=== PATIENT | male | born 1970 | race American Indian/Alaskan Native ===

== ENCOUNTER 2016-09-04 15:56 | Emergency (ER) | payer MEDICAID ==
[2016-09-04 16:03] VITALS: BP 113/89
[2016-09-04] MEDS ORDERED: Sodium Chloride 0.9% 10 ML Syringe FLUSH PRN (16:04)
[2016-09-04] MEDS ORDERED: MVI, Adult with Vitamin K 10 ML, Thiamine 100 MG, Folic Acid 1 MG in Lactated Ringers 1... IV ONE ×4 (16:05)
[2016-09-04] MEDS ORDERED: Pantoprazole 40 MG Vial IVPUSH ONE (16:06)
[2016-09-04] MEDS ORDERED: Ondansetron 4 MG/2 ML SDV IV ONE ×2 (16:06→17:19)
[2016-09-04] MEDS ORDERED: Pantoprazole 40 MG in Sodium Chloride 0.9% 100 ML IV SCH (16:15)
[2016-09-04] MEDS ORDERED: levETIRAcetam 1,000 MG in Sodium Chloride 0.9% 100 ML IV ONE (16:24)
[2016-09-04 16:43] LABS: CHLORIDE,CL 109 mmol/L (101-111); SODIUM,NA 144 mmol/L (135-145)
--- NOTE | 2016-09-04 17:48 | EDM.PDOC ---
Scribed by Ivonne Canchola 09/04/16 9100 for Brando Jacob MD ED HPI GENERAL MEDICAL PROBLEM - General Chief Complaint: Drug or Alcohol Abuse Stated Complaint: COMING BY AMBULANCE Time Seen by Provider: 09/04/16 16:00 Source of Information: Reports: Patient, EMS, RN, RN Notes Reviewed History Limitations: Reports: No Limitations - History of Present Illness INITIAL COMMENTS - FREE TEXT/NARRATIVE: Arrives from home by ambulance with complaint of 9 days of heavy continuous drinking of vodka. Last drank late last night or early this morning. He became nauseated late this morning after taking his seizure meds and vomited, then could not quit vomiting. Patient reports that he had at least one seizure today. He called 911 because he began to vomit blood. Complaining of severe sharp and burning epigastric pain. Onset: Today Duration: Constant Location: Reports: Abdomen Quality: Reports: Ache, Burning, Sharp Severity: Severe Improves with: Reports: None Worsens with: Reports: None Associated Symptoms: Reports: No Other Symptoms Upper Abdomen Pain Score (Numeric/FACES): 9 - Related Data Allergies Allergy/AdvReac Type Severity Reaction Status Date / Time Penicillins Allergy Mild Hives Verified 09/04/16 15:59 Home Meds: Home Meds carBAMazepine [Carbamazepine] 200 mg PO BID 07/31/13 [History] ALPRAZolam [Alprazolam] 1 mg PO BID PRN 07/20/15 [History] Zolpidem Tartrate [Ambien] 5 mg PO BEDTIME 07/20/15 [History] Past Medical History - Past Health History Medical/Surgical History: Denies Medical/Surgical History HEENT History: Reports: None Cardiovascular History: Reports: None Respiratory History: Reports: None Gastrointestinal History: Reports: PUD Other Genitourinary History: increased frequency Musculoskeletal History: Reports: None Neurological History: Reports: Seizure Psychiatric History: Reports: Addiction, Anxiety Endocrine/Metabolic History: Reports: None Hematologic History: Reports: None Immunologic History: Reports: None Oncologic (Cancer) History: Reports: None Dermatologic History: Reports: None - Infectious Disease History Infectious Disease History: Reports: None - Past Surgical History Musculoskeletal Surgical History: Reports: Shoulder Surgery Social & Family History - Family History Family Medical History: Noncontributory - Tobacco Use Smoking Status *Q: Unknown Ever Smoked Years of Tobacco use: 20 Packs/Tins Daily: 1 Used Tobacco, but Quit: No Second Hand Smoke Exposure: No - Alcohol Use Days Per Week of Alcohol Use: 7 Number of Drinks Per Day: 10 Total Drinks Per Week: 70 - Recreational Drug Use Recreational Drug Use: No Recreational Drug Use Frequency: Patient Refuses To Answer - Living Situation & Occupation Living situation: Reports: Occupation: Unemployed ED ROS GENERAL - Review of Systems Review Of Systems: ROS reveals no pertinent complaints other than HPI. - Physical Exam Exam: See Below Exam Limited By: No Limitations General Appearance: Alert, Other (Actively vomiting with bloody emesis. ) Eye Exam: Bilateral Eye: Normal Inspection Ears: Normal External Exam, Hearing Grossly Normal, Other (No hemtympanum. ) Nose: Other (dried blood at bilateral nares.) Throat/Mouth: Normal Lips, Normal Voice, No Airway Compromise, Other (dry oral membranes. ) Head Exam: Atraumatic, Normocephalic Neck: Normal Inspection, Supple, Non-Tender, Full Range of Motion Respiratory/Chest: No Respiratory Distress, Lungs Clear, No Accessory Muscle Use , Chest Non-Tender, Other (Left upper chest wall and axillary contusion.) Cardiovascular: Regular Rate, Rhythm, Tachycardia GI/Abdominal: Normal Bowel Sounds, Soft, No Distention, Other (epigastric tenderness.) (Male) Exam: Other (incontinent of urine x1. ) Rectal (Males) Exam: Deferred Neuro Exam (Abbreviated): No Motor/Sensory Deficits, Other (Intoxicated. ) Back Exam: Normal Inspection, Full Range of Motion, NT Extremities: Normal Range of Motion, No Pedal Edema, Normal Capillary Refill, Other (contusion and hematoma right upper extremity. ) Psychiatric: Normal Affect, Normal Mood Skin Exam: Warm, Dry, Other EKG INTERPRETATION EKG Date: 09/04/16 Time: 16:12 Rhythm: Other (sinus tachycardia) Rate (Beats/Min): 102 [place]: Normal P-Wave: Present QRS: Other ([place] IVCD) ST-T: Normal QT: Normal Course - Vital Signs Last Recorded V/S: Last Vital Signs Temp 36.9 C 09/04/16 16:00 Pulse 118 H 09/04/16 16:00 Resp 20 09/04/16 16:00 BP 113/89 09/04/16 16:00 Pulse Ox 95 09/04/16 16:00 - Orders/Labs/Meds Orders: Active Orders 24 hr Category Date Time Status EKG 12 Lead [EKG Documentation Completion] [RC] STAT Care 09/04/16 16:17 Active Peripheral IV Care [RC] . DIRECTED Care 09/04/16 16:04 Active CARBAMAZEPINE [REF] Stat Lab 09/04/16 16:12 Received DRUG SCREEN URINE BIORAD [URCHEM] Stat Lab 09/04/16 16:04 Uncollected UA W/MICROSCOPIC [URIN] Stat Lab 09/04/16 16:04 Uncollected Pantoprazole [ProTONIX IV] 40 mg Med 09/04/16 16:15 Active Sodium Chloride 0.9% [Normal Saline] 100 ml IV .CONTINUOS Sodium Chloride 0.9% [Saline Flush] Med 09/04/16 16:04 Active 10 ml FLUSH ASDIRECTED PRN Peripheral IV Insertion Adult [OM.PC] Stat Oth 09/04/16 16:03 Ordered Medication Orders Pantoprazole Sodium 40 mg/ (Sodium Chloride) 100 mls @ 20 mls/hr IV .CONTINUOS DAYANARA Last Admin: 09/04/16 17:14 Dose: 20 mls/hr Sodium Chloride (Saline Flush) 10 ml FLUSH ASDIRECTED PRN PRN Reason: Keep Vein Open Last Admin: 09/04/16 16:25 Dose: 10 ml Labs: Laboratory Tests 09/04/16 09/04/16 09/04/16 Range/Units 16:12 16:12 16:12 WBC 8.9 (5.0-10.0) 10^3/uL RBC 4.52 L (4.6-6.2) 10^6/uL Hgb 14.6 (14.0-18.0) g/dL Hct 41.7 (40.0-54.0) % MCV 92.3 (80-100) fL MCH 32.3 (27.0-34.0) pg MCHC 35.0 (33.0-35.0) g/dL Plt Count 233 (150-450) 10^3/uL Neut % (Auto) 81.8 H (42.2-75.2) % Lymph % (Auto) 12.7 L (20.5-50.1) % [place] % (Auto) 4.9 (2-8) % Eos % (Auto) 0.3 L (1.0-3.0) % Baso % (Auto) 0.3 (0.0-1.0) % PT 9.7 (9.0-12.0) SEC INR 1.0 (0.9-1.2) APTT 24.9 (22.0-34.0) SEC Sodium 144 (135-145) mmol/L Potassium 3.5 L (3.6-5.0) mmol/L Chloride 109 (101-111) mmol/L Carbon Dioxide 20.0 L (21.0-31.0) mmol/L Anion Gap 18.5 BUN 8 (7-18) mg/dL Creatinine 0.8 (0.6-1.3) mg/dL Est Cr Clr Drug Dosing 117.83 mL/min Estimated GFR (MDRD) > 60 BUN/Creatinine Ratio 10.00 Glucose 101 (74-105) mg/dL Calcium 8.5 (8.4-10.2) mg/dl Total Bilirubin 0.5 (0.2-1.0) mg/dL AST 42 (10-42) IU/L ALT 66 H (10-60) IU/L Alkaline Phosphatase 72 (42-121) IU/L Lactate Dehydrogenase 255 H (91-180) IU/L Creatine Kinase 315 H (26-174) IU/L Total Protein 6.4 L (6.7-8.2) g/dl Albumin 3.9 (3.2-5.5) g/dl Globulin 2.5 Albumin/Globulin Ratio 1.56 Amylase 39 (28-100) U/L Lipase 21 L (22-51) U/L Ethyl Alcohol 145 mg/dL Meds: Medications Generic Name Dose Route Start Last Admin Trade Name Freq PRN Reason Stop Dose Admin Pantoprazole Sodium 40 mg/ 100 mls @ 20 mls/hr 09/04/16 16:15 09/04/16 17:14 Sodium Chloride IV 20 mls/hr .CONTINUOS DAYANARA Administration Sodium Chloride 10 ml 09/04/16 16:04 09/04/16 16:25 Saline Flush FLUSH 10 ml ASDIRECTED PRN Administration Keep Vein Open Discontinued Medications Generic Name Dose Route Start Last Admin Trade Name Freq PRN Reason Stop Dose Admin Multivitamins/Minerals 10 ml/ 1,011.2 mls @ 999 mls/hr 09/04/16 16:05 16:48 Thiamine HCl 100 mg/ Folic IV 09/04/16 17:05 999 mls/hr Acid 1 mg/ Lactated Ringer's .BOLUS ONE Administration Levetiracetam 1,000 mg/ Sodium 110 mls @ 400 mls/hr 09/04/16 16:24 09/04/16 16:49 Chloride IV 09/04/16 16:38 400 mls/hr ONETIME ONE Administration Ondansetron HCl 4 mg 09/04/16 16:06 09/04/16 16:18 Zofran IV 09/04/16 16:07 4 mg ONETIME ONE Administration Ondansetron HCl 4 mg 09/04/16 17:19 09/04/16 17:37 Zofran IV 09/04/16 17:20 4 mg ONETIME ONE Administration Pantoprazole Sodium 80 mg 09/04/16 16:06 09/04/16 16:18 Protonix Iv IVPUSH 09/04/16 16:07 80 mg .BOLUS ONE Administration Departure - Departure Time of Disposition: 17:13 Disposition: DC/Tfer to Acute Hospital 02 Condition: Serious Clinical Impression: Upper GI bleed, Alcohol abuse, Recurrent seizures, Hematoma, History of peptic ulcer disease Acute alcohol intoxication Qualifiers: Complication of substance-induced condition: with unspecified complication Qualified Code(s): F10.929 - Alcohol use, unspecified with intoxication, unspecified Alcoholic gastritis with bleeding Qualifiers: Chronicity: acute Qualified Code(s): K29.21 - Alcoholic gastritis with bleeding - Discharge Information Forms: ED Department Discharge, Interfacility Transfer EMTALA - My Orders Last 24 Hours: My Active Orders 09/04/16 16:03 Peripheral IV Insertion Adult [OM.PC] Stat 09/04/16 16:04 Peripheral IV Care [RC] . DIRECTED DRUG SCREEN URINE BIORAD [URCHEM] Stat UA W/MICROSCOPIC [URIN] Stat Sodium Chloride 0.9% [Saline Flush] 10 ml FLUSH ASDIRECTED PRN 09/04/16 16:12 CARBAMAZEPINE [REF] Stat 09/04/16 16:15 Pantoprazole [ProTONIX IV] 40 mg Sodium Chloride 0.9% [Normal Saline] 100 ml IV .CONTINUOS 09/04/16 16:17 EKG 12 Lead [EKG Documentation Completion] [RC] STAT - Assessment/Plan Last 24 Hours: My Active Orders 09/04/16 16:03 Peripheral IV Insertion Adult [OM.PC] Stat 09/04/16 16:04 Peripheral IV Care [RC] . DIRECTED DRUG SCREEN URINE BIORAD [URCHEM] Stat UA W/MICROSCOPIC [URIN] Stat Sodium Chloride 0.9% [Saline Flush] 10 ml FLUSH ASDIRECTED PRN 09/04/16 16:12 CARBAMAZEPINE [REF] Stat 09/04/16 16:15 Pantoprazole [ProTONIX IV] 40 mg Sodium Chloride 0.9% [Normal Saline] 100 ml IV .CONTINUOS 09/04/16 16:17 EKG 12 Lead [EKG Documentation Completion] [RC] STAT I have read and agree with the documentation that has been completed regarding this visit. By signing this record, I attest that the documentation was completed in my physical presence and is an accurate record of the encounter.
--- NOTE | 2016-09-06 09:35 | EKG ---
09/04/2016- AURELIA SANTANA - A 12-lead EKG shows normal sinus rhythm with sinus tachycardia with heart rate of 102. No significant ST elevation or ST depression noted on this 12-lead EKG except for nonspecific ST-T wave changes on lead 1 and AVR. [facility] /[id number]
== END 2016-09-04 18:00 ==
LOC: DL.ED 15:56
DX: K92.2 Gastrointestinal hemorrhage, unspecified (principal); G40.909 Epilepsy, unspecified, not intractable, without status epilepticus; F10.10 Alcohol abuse, uncomplicated; S40.021A Contusion of right upper arm, initial encounter; X58.XXXA Exposure to other specified factors, initial encounter; Y92.019 Unspecified place in single-family (private) house as the place of occurrence of the external cause; K29.21 Alcoholic gastritis with bleeding; F41.9 Anxiety disorder, unspecified; Z88.0 Allergy status to penicillin; Z79.899 Other long term (current) drug therapy; Z87.11 Personal history of peptic ulcer disease
CPT/HCPCS: 36415; 80053; 80156; 80305; 81001; 82150; 82550; 83615; 83690; 85025; 85610; 85730; 93005; 96361; 96365; 96367; 96374; 96375; 96376; 99285; C9113; G0480; J1953; J2405; J3411; J7050; J7120; J3490

== ENCOUNTER 2016-09-09 15:40 | Emergency (ER) | payer MEDICAID ==
[2016-09-09 15:58] VITALS: BP 123/69
--- NOTE | 2016-09-09 16:16 | EDM.PDOC ---
ED HPI GENERAL MEDICAL PROBLEM - General Chief Complaint: Chest Pain Stated Complaint: RIB PAIN [id number] Time Seen by Provider: 09/09/16 16:13 Source of Information: Reports: Patient History Limitations: Reports: No Limitations - History of Present Illness INITIAL COMMENTS - FREE TEXT/NARRATIVE: 45 yo male presents with left sided lateral chest pain. States that he had a seizure on saturday and fell onto his left side. Was admitted to the hospital and had shoulder x-rays done however no findings were presents per patient. Bruising noted to left upper chest at shoulder. Pt unable to fully raise left arm without pain and has intermittent sharp pains with breathing and speaking. no other complaints. Onset Date: 09/04/16 Duration: Getting Worse Location: Reports: Chest Quality: Reports: Sharp, Stabbing Severity: Moderate Improves with: Reports: Immobilization Worsens with: Reports: Breathing, Movement Associated Symptoms: Reports: No Other Symptoms Left Chest Pain Score (Numeric/FACES): 8 - Related Data Allergies Allergy/AdvReac Type Severity Reaction Status Date / Time Penicillins Allergy Mild Hives Verified 09/09/16 15:53 fluoxetine Allergy Cannot Verified 09/09/16 15:53 Remember Home Meds: Home Meds carBAMazepine [Carbamazepine] 200 mg PO BID 07/31/13 [History] Zolpidem Tartrate [Ambien] 5 mg PO BEDTIME 07/20/15 [History] Past Medical History - Past Health History Medical/Surgical History: Denies Medical/Surgical History HEENT History: Reports: None Cardiovascular History: Reports: None Respiratory History: Reports: None Gastrointestinal History: Reports: GI Bleed, PUD Other Genitourinary History: increased frequency Musculoskeletal History: Reports: None Neurological History: Reports: Seizure Psychiatric History: Reports: Addiction, Anxiety Endocrine/Metabolic History: Reports: None Hematologic History: Reports: None Immunologic History: Reports: None Oncologic (Cancer) History: Reports: None Dermatologic History: Reports: None - Infectious Disease History Infectious Disease History: Reports: None - Past Surgical History Head Surgeries/Procedures: Reports: None Musculoskeletal Surgical History: Reports: Shoulder Surgery Social & Family History - Family History Family Medical History: Noncontributory - Tobacco Use Smoking Status *Q: Former Smoker Years of Tobacco use: 20 Packs/Tins Daily: 1 Used Tobacco, but Quit: Yes Month Tobacco Last Used: july Second Hand Smoke Exposure: No - Caffeine Use Caffeine Use: Reports: Coffee, Energy Drinks, Soda, Tea - Alcohol Use Days Per Week of Alcohol Use: 7 Number of Drinks Per Day: 10 Total Drinks Per Week: 70 - Recreational Drug Use Recreational Drug Use: No Recreational Drug Use Frequency: Patient Refuses To Answer - Living Situation & Occupation Living situation: Reports: Occupation: Unemployed ED ROS GENERAL - Review of Systems Review Of Systems: ROS reveals no pertinent complaints other than HPI. ED EXAM, GENERAL - Physical Exam Exam: See Below Exam Limited By: No Limitations General Appearance: Alert, WD/WN, No Apparent Distress Respiratory/Chest: No Respiratory Distress, Lungs Clear, Normal Breath Sounds, No Accessory Muscle Use, Chest Non-Tender Cardiovascular: Normal Peripheral Pulses, Regular Rate, Rhythm, No Edema, No Gallop, No JVD, No Murmur, No Rub Extremities: Normal Inspection, Non-Tender, No Pedal Edema, Normal Capillary Refill, Limited Range of Motion (L shoulder) Neurological: Alert, Oriented, Normal Cognition, Normal Gait Skin Exam: Warm, Dry, Intact, No Rash, Ecchymosis (left chest ) Course - Vital Signs Last Recorded V/S: Last Vital Signs Temp 97.7 F 09/09/16 15:54 Pulse 97 09/09/16 15:54 Resp 16 09/09/16 15:54 BP 123/69 09/09/16 15:54 Pulse Ox 99 09/09/16 15:54 - Orders/Labs/Meds Orders: Active Orders 24 hr Category Date Time Status Ribs 2V wo Chest Lt [CR] Urgent Exams 09/09/16 Taken Meds: Medications Discontinued Medications Generic Name Dose Route Start Last Admin Trade Name Claudine PRN Reason Stop Dose Admin Hydrocodone Bitart/Acetaminophen 1 tab 09/09/16 17:26 09/09/16 17:30 [place] 325-5 Mg PO 09/09/16 17:27 1 tab ONETIME ONE Administration Cyclobenzaprine HCl 10 mg 09/09/16 16:21 09/09/16 16:38 Flexeril PO 09/09/16 16:22 10 mg ONETIME ONE Administration Departure - Departure Time of Disposition: 17:32 Disposition: Home, Self-Care 01 Condition: Good Clinical Impression: Costochondritis Instructions: Costochondritis, [id number] Forms: ED Department Discharge Additional Instructions: Continue to take deep breath as to not get pneumonia. take meidcation as prescribed. Follow up with your PCP. Return for any worsening symptoms. - My Orders Last 24 Hours: My Active Orders 09/09/16 Ribs 2V wo Chest Lt [CR] Urgent - Assessment/Plan Last 24 Hours: My Active Orders 09/09/16 Ribs 2V wo Chest Lt [CR] Urgent
[2016-09-09] MEDS ORDERED: Cyclobenzaprine 10 MG Tab PO ONE (16:21)
--- NOTE | 2016-09-09 17:09 | CR ---
Clinical history: 45-year-old male with chest pain. Interpretation: Subtle peribronchial "cuffing" suggesting reactive airway disease or bronchitis. Normal cardiac silhouette without alveolar edema or dependent effusion. No lung mass, hilar lymphadenopathy or focal lobar pneumonia. No atelectasis/collapse. No pneumothor ax. 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 CONCLUSION: Bronchitis. Arthritis. No signs of heart failure, lung mass or lobar pneumonia. No acute new cardiopulmonary abnormality si nce 10 June 2014 exam.
[2016-09-09] MEDS ORDERED: Acetaminophen/HYDROcodone 325-5 MG Tab PO ONE ×2 (17:26→17:58)
[2016-09-09] MEDS ORDERED: Acetaminophen/HYDROcodone 325-5 MG Tab ONE (17:58)
== END 2016-09-09 17:40 | disposition home or self-care (01) ==
LOC: DL.ED 15:40
DX: M94.0 Chondrocostal junction syndrome [Tietze] (principal); F41.9 Anxiety disorder, unspecified; Z88.0 Allergy status to penicillin; Z88.8 Allergy status to other drugs, medicaments and biological substances; Z87.891 Personal history of nicotine dependence
CPT/HCPCS: 71020; 71100; 99283; A9270

== ENCOUNTER 2017-05-19 09:57 | Emergency (ER) | payer MEDICAID ==
[2017-05-19] MEDS ORDERED: Sodium Chloride 0.9% 10 ML Syringe FLUSH PRN (10:13)
[2017-05-19] MEDS ORDERED: MVI, Adult with Vitamin K 10 ML, Folic Acid 1 MG, Thiamine 100 MG in Lactated Ringers 1... IV ONE ×4 (10:16)
[2017-05-19] MEDS ORDERED: Ondansetron 4 MG/2 ML SDV IV ONE (10:30)
[2017-05-19] MEDS ORDERED: LORazepam 2 MG/ML Syringe IVPUSH ONE ×2 (10:30→11:33)
[2017-05-19 10:38] LABS: CHLORIDE,CL 105 mmol/L (101-111); SODIUM,NA 140 mmol/L (135-145)
[2017-05-19] MEDS ORDERED: Pantoprazole 40 MG Vial IVPUSH ONE (10:57)
[2017-05-19] MEDS ORDERED: Pantoprazole 40 MG in Sodium Chloride 0.9% 100 ML IV SCH (11:00)
[2017-05-19 11:18] VITALS: BP 134/86
[2017-05-19] MEDS ORDERED: Sodium Chloride 0.9% 1,000 ML IV ONE (12:00)
--- NOTE | 2017-05-19 19:16 | EDM.PDOC ---
Scribed by Ivonne Canchola 05/19/17 1154 for Madison Giron NP ED HPI GENERAL MEDICAL PROBLEM - General Chief Complaint: Gastrointestinal Problem Stated Complaint: STOMACH PAIN, CAN'T KEEP ANYTHING DOWN Time Seen by Provider: 05/19/17 10:18 Source of Information: Reports: Patient, RN, RN Notes Reviewed History Limitations: Reports: No Limitations - History of Present Illness INITIAL COMMENTS - FREE TEXT/NARRATIVE: Patient presents to ER with complaint of nausea, vomiting, and stomach pain unable to keep food or water down. He had been at a wedding in [place]. States he has been drinking for 6 days. Last drink was 11 A.M. yesterday (04-28-17). Not sure if blood in vomit, but color was dark. Unsure if there is blood in stool. He has tremors, auditory and visual hallucinations. He also has nausea, vomiting, diarrhea and chills.There is no chest pain, shortness of breath or fever. Duration: Getting Worse Location: Reports: Abdomen Quality: Reports: Ache Severity: Moderate Improves with: Reports: None Worsens with: Reports: None Associated Symptoms: Reports: No Other Symptoms Upper Abdomen Pain Score (Numeric/FACES): 6 - Related Data Allergies Allergy/AdvReac Type Severity Reaction Status Date / Time Penicillins Allergy Mild Hives Verified 09/09/16 15:53 fluoxetine Allergy Cannot Verified 09/09/16 15:53 Remember Home Meds: Home Meds carBAMazepine [Carbamazepine] 200 mg PO BID 07/31/13 [History] Zolpidem Tartrate [Ambien] 5 mg PO BEDTIME 07/20/15 [History] Past Medical History - Past Health History Medical/Surgical History: Denies Medical/Surgical History HEENT History: Reports: None Cardiovascular History: Reports: None Respiratory History: Reports: None Gastrointestinal History: Reports: Gastritis, GI Bleed, PUD Genitourinary History: Reports: Other (See Below) Other Genitourinary History: increased frequency Musculoskeletal History: Reports: None Neurological History: Reports: Seizure Psychiatric History: Reports: Addiction, Anxiety Endocrine/Metabolic History: Reports: None Hematologic History: Reports: None Immunologic History: Reports: None Oncologic (Cancer) History: Reports: None Dermatologic History: Reports: None - Infectious Disease History Infectious Disease History: Reports: None - Past Surgical History Head Surgeries/Procedures: Reports: None Musculoskeletal Surgical History: Reports: Shoulder Surgery Social & Family History - Family History Family Medical History: Noncontributory - Tobacco Use Smoking Status *Q: Light Tobacco Smoker Years of Tobacco use: 20 Packs/Tins Daily: 0.5 Used Tobacco, but Quit: Yes Month/Year Tobacco Last Used: july Second Hand Smoke Exposure: No - Caffeine Use Caffeine Use: Reports: Coffee, Energy Drinks, Soda, Tea - Alcohol Use Days Per Week of Alcohol Use: 7 Number of Drinks Per Day: 10 Total Drinks Per Week: 70 - Recreational Drug Use Recreational Drug Use: No Recreational Drug Use Frequency: Patient Refuses To Answer - Living Situation & Occupation Living situation: Reports: Occupation: Unemployed ED ROS GENERAL - Review of Systems Review Of Systems: ROS reveals no pertinent complaints other than HPI. ED EXAM, GI/ABD - Physical Exam Exam: See Below Exam Limited By: No Limitations General Appearance: Anxious, Moderate Distress Ears: Normal External Exam, Normal Canal, Hearing Grossly Normal, Normal TMs Nose: Normal Inspection, Normal Mucosa, No Blood Throat/Mouth: Normal Inspection, Normal Lips, Normal Teeth, Normal Gums, Normal Oropharynx, Normal Voice, No Airway Compromise Head: Atraumatic, Normocephalic Neck: Normal Inspection, Supple, Non-Tender, Full Range of Motion Respiratory/Chest: No Respiratory Distress, Lungs Clear, Normal Breath Sounds, No Accessory Muscle Use, Chest Non-Tender Cardiovascular: Normal Peripheral Pulses, Regular Rate, Rhythm, No Edema, No Gallop, No JVD, No Murmur, No Rub GI/Abdominal Exam: Tender (epigastric generalized) (Male) Exam: Deferred Rectal (Males) Exam: Deferred Back Exam: Normal Inspection, Full Range of Motion, NT Extremities: Normal Inspection, Normal Range of Motion, Non-Tender, Normal Capillary Refill, No Pedal Edema Neurological: Alert, Oriented, CN II-XII Intact, Normal Cognition, Normal Gait, Normal Reflexes, No Motor/Sensory Deficits Psychiatric: Anxious, Other (auditory and visual hallucinations.) Skin Exam: Warm, Dry, Intact, Normal Color, No Rash Lymphatic: No Adenopathy Course - Vital Signs Last Recorded V/S: Last Vital Signs Temp 96.8 F 05/19/17 10:01 Pulse 95 05/19/17 11:17 Resp 18 05/19/17 11:17 BP 134/86 05/19/17 11:17 Pulse Ox 98 05/19/17 11:17 - Orders/Labs/Meds Orders: Active Orders 24 hr Category Date Time Status Peripheral IV Care [RC] . DIRECTED Care 05/19/17 10:14 Active Pantoprazole [ProTONIX IV] 40 mg Med 05/19/17 11:00 Active Sodium Chloride 0.9% [Normal Saline] 100 ml IV .CONTINUOS Sodium Chloride 0.9% [Saline Flush] Med 05/19/17 10:13 Active 10 ml FLUSH ASDIRECTED PRN Peripheral IV Insertion Adult [OM.PC] Stat Oth 05/19/17 10:13 Ordered Medication Orders Pantoprazole Sodium 40 mg/ (Sodium Chloride) 100 mls @ 20 mls/hr IV .CONTINUOS DAYANARA Last Admin: 05/19/17 11:13 Dose: 20 mls/hr Sodium Chloride (Saline Flush) 10 ml FLUSH ASDIRECTED PRN PRN Reason: Keep Vein Open Last Admin: 05/19/17 10:16 Dose: 10 ml Labs: Laboratory Tests 05/19/17 05/19/17 05/19/17 Range/Units 10:11 10:11 10:11 WBC 13.5 H (5.0-10.0) 10^3/uL RBC 5.12 (4.6-6.2) 10^6/uL Hgb 16.6 D (14.0-18.0) g/dL Hct 46.2 (40.0-54.0) % MCV 90.2 (80-100) fL MCH 32.4 (27.0-34.0) pg MCHC 35.9 H (33.0-35.0) g/dL Plt Count 285 (150-450) 10^3/uL Neut % (Auto) 78.5 H (42.2-75.2) % Lymph % (Auto) 15.0 L (20.5-50.1) % [place] % (Auto) 6.1 (2-8) % Eos % (Auto) 0.2 L (1.0-3.0) % Baso % (Auto) 0.2 (0.0-1.0) % PT 9.4 (9.0-12.0) SEC INR 0.9 (0.9-1.2) Sodium 140 (135-145) mmol/L Potassium 3.6 (3.6-5.0) mmol/L Chloride 105 (101-111) mmol/L Carbon Dioxide 20.0 L (21.0-31.0) mmol/L Anion Gap 18.6 BUN 15 (7-18) mg/dL Creatinine 0.8 (0.6-1.3) mg/dL Est Cr Clr Drug Dosing 116.61 mL/min Estimated GFR (MDRD) > 60 BUN/Creatinine Ratio 18.75 Glucose 102 (74-105) mg/dL Calcium 8.7 (8.4-10.2) mg/dl Total Bilirubin 0.7 (0.2-1.0) mg/dL AST 32 (10-42) IU/L ALT 48 (10-60) IU/L Alkaline Phosphatase 76 (42-121) IU/L Total Protein 7.0 (6.7-8.2) g/dl Albumin 4.3 (3.2-5.5) g/dl Globulin 2.7 Albumin/Globulin Ratio 1.59 Amylase 34 (28-100) U/L Lipase 12 L (22-51) U/L Urine Color (YELLOW) Urine Appearance (CLEAR) Urine pH (5.0-9.0) Ur Specific [place] (1.005-1.030) Urine Protein (NEGATIVE) Urine Glucose (UA) (NEGATIVE) Urine Ketones (NEGATIVE) Urine Occult Blood (NEGATIVE) Urine Nitrite (NEGATIVE) Urine Bilirubin (NEGATIVE) Urine Urobilinogen (0.2-1.0) mg/dL Ur Leukocyte Esterase (NEGATIVE) Urine RBC /HPF Urine WBC (0-5/HPF) /HPF Ur Epithelial Cells /HPF Urine Bacteria (0-FEW/HPF) /HPF Hyaline Casts /LPF Fine Granular Casts (0/LPF) /LPF Urine Mucus /LPF Urine Opiates Screen (NEGATIVE) Ur Oxycodone Screen (NEGATIVE) Urine Methadone Screen (NEGATIVE) Ur Barbiturates Screen (NEGATIVE) U Tricyclic Antidepress (NEGATIVE) Ur Phencyclidine Scrn (NEGATIVE) Ur Amphetamine Screen (NEGATIVE) U Methamphetamines Scrn (NEGATIVE) Urine MDMA Screen (NEGATIVE) U Benzodiazepines Scrn (NEGATIVE) Urine Cocaine Screen (NEGATIVE) U Marijuana (THC) Screen (NEGATIVE) Ethyl Alcohol 95 mg/dL 03/25/18 03/25/18 Range/Units 10:32 10:32 WBC (5.0-10.0) 10^3/uL RBC (4.6-6.2) 10^6/uL Hgb (14.0-18.0) g/dL Hct (40.0-54.0) % MCV (80-100) fL MCH (27.0-34.0) pg MCHC (33.0-35.0) g/dL Plt Count (150-450) 10^3/uL Neut % (Auto) (42.2-75.2) % Lymph % (Auto) (20.5-50.1) % [place] % (Auto) (2-8) % Eos % (Auto) (1.0-3.0) % Baso % (Auto) (0.0-1.0) % PT (9.0-12.0) SEC INR (0.9-1.2) Sodium (135-145) mmol/L Potassium (3.6-5.0) mmol/L Chloride (101-111) mmol/L Carbon Dioxide (21.0-31.0) mmol/L Anion Gap BUN (7-18) mg/dL Creatinine (0.6-1.3) mg/dL Est Cr Clr Drug Dosing mL/min Estimated GFR (MDRD) BUN/Creatinine Ratio Glucose (74-105) mg/dL Calcium (8.4-10.2) mg/dl Total Bilirubin (0.2-1.0) mg/dL AST (10-42) IU/L ALT (10-60) IU/L Alkaline Phosphatase (42-121) IU/L Total Protein (6.7-8.2) g/dl Albumin (3.2-5.5) g/dl Globulin Albumin/Globulin Ratio Amylase (28-100) U/L Lipase (22-51) U/L Urine Color Yellow (YELLOW) Urine Appearance Slightly cloudy (CLEAR) Urine pH 6.0 (5.0-9.0) Ur Specific [place] >= 1.030 (1.005-1.030) Urine Protein 100 H (NEGATIVE) Urine Glucose (UA) Negative (NEGATIVE) Urine Ketones 40 H (NEGATIVE) Urine Occult Blood Trace-intact H (NEGATIVE) Urine Nitrite Negative (NEGATIVE) Urine Bilirubin Small H (NEGATIVE) Urine Urobilinogen 0.2 (0.2-1.0) mg/dL Ur Leukocyte Esterase Negative (NEGATIVE) Urine RBC 0-5 /HPF Urine WBC 0-5 (0-5/HPF) /HPF Ur Epithelial Cells Few /HPF Urine Bacteria Moderate H (0-FEW/HPF) /HPF Hyaline Casts Few H /LPF Fine Granular Casts Many H (0/LPF) /LPF Urine Mucus Many H /LPF Urine Opiates Screen Negative (NEGATIVE) Ur Oxycodone Screen Negative (NEGATIVE) Urine Methadone Screen Negative (NEGATIVE) Ur Barbiturates Screen Negative (NEGATIVE) U Tricyclic Antidepress Negative (NEGATIVE) Ur Phencyclidine Scrn Negative (NEGATIVE) Ur Amphetamine Screen Negative (NEGATIVE) U Methamphetamines Scrn Positive H (NEGATIVE) Urine MDMA Screen Negative (NEGATIVE) U Benzodiazepines Scrn Positive H (NEGATIVE) Urine Cocaine Screen Negative (NEGATIVE) U Marijuana (THC) Screen Negative (NEGATIVE) Ethyl Alcohol mg/dL Meds: Medications Generic Name Dose Route Start Last Admin Trade Name Freq PRN Reason Stop Dose Admin Pantoprazole Sodium 40 mg/ 100 mls @ 20 mls/hr 05/19/17 11:00 05/19/17 11:13 Sodium Chloride IV 20 mls/hr .CONTINUOS DAYANARA Administration Sodium Chloride 10 ml 05/19/17 10:13 05/19/17 10:16 Saline Flush FLUSH 10 ml ASDIRECTED PRN Administration Keep Vein Open Discontinued Medications Generic Name Dose Route Start Last Admin Trade Name Freq PRN Reason Stop Dose Admin Multivitamins/Minerals 10 ml/ 1,011.2 mls @ 999 mls/hr 05/19/17 10:16 10:28 Folic Acid 1 mg/ Thiamine HCl IV 05/19/17 11:16 999 mls/hr 100 mg/ Lactated Ringer's ONETIME ONE Administration Lorazepam 1 mg 05/19/17 10:30 05/19/17 10:36 Ativan IVPUSH 05/19/17 10:31 1 mg ONETIME ONE Administration Lorazepam 2 mg 05/19/17 11:33 05/19/17 11:45 Ativan IVPUSH 05/19/17 11:34 2 mg ONETIME ONE Administration Ondansetron HCl 4 mg 05/19/17 10:30 05/19/17 10:36 Zofran IV 05/19/17 10:31 4 mg ONETIME ONE Administration Pantoprazole Sodium 80 mg 05/19/17 10:57 05/19/17 11:12 Protonix Iv IVPUSH 05/19/17 10:58 80 mg .BOLUS ONE Administration Departure - Departure Time of Disposition: 11:52 Disposition: DC/Tfer to Acute Hospital 02 Condition: Fair Clinical Impression: Alcohol withdrawal syndrome, Alcohol withdrawal delirium, Auditory hallucinations, Visual hallucinations Gastritis Qualifiers: Gastritis type: alcoholic Chronicity: acute Gastritis bleeding: presence of bleeding unspecified Qualified Code(s): K29.20 - Alcoholic gastritis without bleeding - Discharge Information Forms: ED Department Discharge, Interfacility Transfer EMTALA - My Orders Last 24 Hours: My Active Orders 05/19/17 10:13 Sodium Chloride 0.9% [Saline Flush] 10 ml FLUSH ASDIRECTED PRN Peripheral IV Insertion Adult [OM.PC] Stat 05/19/17 10:14 Peripheral IV Care [RC] . DIRECTED 05/19/17 11:00 Pantoprazole [ProTONIX IV] 40 mg Sodium Chloride 0.9% [Normal Saline] 100 ml IV .CONTINUOS - Assessment/Plan Last 24 Hours: My Active Orders 05/19/17 10:13 Sodium Chloride 0.9% [Saline Flush] 10 ml FLUSH ASDIRECTED PRN Peripheral IV Insertion Adult [OM.PC] Stat 05/19/17 10:14 Peripheral IV Care [RC] . DIRECTED 05/19/17 11:00 Pantoprazole [ProTONIX IV] 40 mg Sodium Chloride 0.9% [Normal Saline] 100 ml IV .CONTINUOS I have read and agree with the documentation that has been completed regarding this visit. By signing this record, I attest that the documentation was completed in my physical presence and is an accurate record of the encounter.
== END 2017-05-19 12:06 ==
LOC: DL.ED 09:57
DX: K29.20 Alcoholic gastritis without bleeding (principal); F10.231 Alcohol dependence with withdrawal delirium; R44.0 Auditory hallucinations; R44.1 Visual hallucinations; F17.210 Nicotine dependence, cigarettes, uncomplicated; Z88.0 Allergy status to penicillin; Z88.8 Allergy status to other drugs, medicaments and biological substances; Y90.4 Blood alcohol level of 80-99 mg/100 ml
CPT/HCPCS: 36415; 80053; 80305; 81001; 82150; 82272; 83690; 85025; 85610; 96365; 96366; 96368; 96375; 96376; 99285; C9113; G0480; J2060; J2405; J3411; J3490; J7050; J7120

== ENCOUNTER 2017-06-10 20:25 | Emergency (ER) | payer MEDICAID, OTHER ==
[2017-06-10 20:43] VITALS: BP 117/81
[2017-06-10] MEDS ORDERED: Acetaminophen/HYDROcodone 325-10 MG Tab PO ONE (20:56)
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
== END 2017-06-10 22:21 | disposition home or self-care (01) ==
LOC: DL.ED 20:25
DX: S20.212A Contusion of left front wall of thorax, initial encounter (principal); F17.210 Nicotine dependence, cigarettes, uncomplicated; Z88.0 Allergy status to penicillin; Z88.8 Allergy status to other drugs, medicaments and biological substances; Z79.899 Other long term (current) drug therapy; W01.0XXA Fall on same level from slipping, tripping and stumbling without subsequent striking against object, initial encounter
CPT/HCPCS: 71101; 99283; A9270

== ENCOUNTER 2017-07-13 15:47 | Emergency (ER) | payer MEDICAID ==
[2017-07-13 16:16] VITALS: BP 145/99
[2017-07-13] MEDS ORDERED: Ketorolac 30 MG/ML SDV IVPUSH ONE (18:22)
[2017-07-13] MEDS ORDERED: Ondansetron 4 MG Tab.DIS PO ONE (18:22)
[2017-07-13] MEDS ORDERED: Acetaminophen/oxyCODONE 325-5 MG Tab ONE (18:26)
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
== END 2017-07-13 18:48 | disposition home or self-care (01) ==
LOC: DL.ED 15:47
DX: S02.641A Fracture of ramus of right mandible, initial encounter for closed fracture (principal); F17.210 Nicotine dependence, cigarettes, uncomplicated; Z88.0 Allergy status to penicillin; Z88.8 Allergy status to other drugs, medicaments and biological substances; Z79.899 Other long term (current) drug therapy; Y04.0XXA Assault by unarmed brawl or fight, initial encounter
CPT/HCPCS: 70450; 70486; 72125; 96372; 99284; A9270; J1885

== ENCOUNTER 2017-10-16 10:10 | Emergency (ER) | payer MEDICAID, OTHER ==
--- NOTE | 2017-10-16 11:01 | EDM.PDOC ---
ED HPI GENERAL MEDICAL PROBLEM - General Chief Complaint: ENT Problem Stated Complaint: STICHES INFECTED ? Time Seen by Provider: 10/16/17 10:45 Source of Information: Reports: Patient History Limitations: Reports: No Limitations - History of Present Illness INITIAL COMMENTS - FREE TEXT/NARRATIVE: This 46 yo male patient reports to the ED with right sided jaw and neck pain with swelling. The patient reports that he had a plate removed about [address] Negrete in [place]. The patient reports he has noticed increased swelling and pain over the past 24 hours. The patient's reports that she called Dr. Negrete's office yesterday. The patient had a CT scan prior to coming to the ED. The patient has an appointment with Dr. Negrete tomorrow in [place]. The patient reports his pain is currently at a 6/10. The patient reports that he had Toradol while in [place] which caused him to vomit. Duration: Day(s):, Constant, Getting Worse Location: Reports: Face (right lower jaw), Neck (right side of neck) Quality: Reports: Ache, Pressure, Sharp Severity: Moderate Improves with: Reports: Rest Worsens with: Reports: Movement Associated Symptoms: Reports: No Other Symptoms Right Neck Pain Score (Numeric/FACES): 6 - Related Data Allergies Allergy/AdvReac Type Severity Reaction Status Date / Time Penicillins Allergy Hives Verified 10/16/17 10:31 Home Meds: Home Meds Acetaminophen [Tylenol Extra Strength] 500 mg PO ASDIRECTED PRN 10/16/17 [ History] Ibuprofen 600 mg PO ASDIRECTED 10/16/17 [History] Multivitamin [Multi-Day Vitamins] 1 tab PO DAILY 10/16/17 [History] carBAMazepine [Carbamazepine] 200 mg PO BID 10/16/17 [History] diphenhydrAMINE HCl [Benadryl] 25 mg PO BEDTIME 10/16/17 [History] Past Medical History HEENT History: Reports: None, Hard of Hearing, Impaired Vision Other HEENT History: deaf out of the left ear, Cardiovascular History: Reports: None Respiratory History: Reports: None Gastrointestinal History: Reports: GERD Genitourinary History: Reports: None Neurological History: Reports: Seizure Endocrine/Metabolic History: Reports: None Hematologic History: Reports: None Immunologic History: Reports: None Oncologic (Cancer) History: Reports: None Dermatologic History: Reports: None - Past Surgical History Head Surgeries/Procedures: Reports: None HEENT Surgical History: Reports: Oral Surgery Musculoskeletal Surgical History: Reports: Arthroscopic Knee, Shoulder Surgery Social & Family History - Tobacco Use Smoking Status *Q: Current Every Day Smoker Years of Tobacco use: 24 Packs/Tins Daily: 0.5 Second Hand Smoke Exposure: No - Caffeine Use Caffeine Use: Reports: Coffee - Recreational Drug Use Recreational Drug Use: No ED ROS ENT - Review of Systems Review Of Systems: ROS reveals no pertinent complaints other than HPI. ED EXAM, ENT - Physical Exam Exam: See Below Exam Limited By: No Limitations General Appearance: Alert, WD/WN, Moderate Distress Eye Exam: Bilateral Eye: EOMI, Normal Inspection, PERRL Ears: Normal External Exam Nose: Normal Inspection, Normal Mucousa, No Blood Mouth/Throat: Normal Inspection, Normal Gums, Normal Lips, Normal Oropharynx, Normal Teeth Head: Atraumatic, Other (right sided facial swelling) Neck: Tender Lateral (right side), Other (swelling and erythema to the right side of his neck. Suture line has areas of white purulent drainage. ) Cardiovascular: Normal Peripheral Pulses, Regular Rate, Rhythm, No Edema, No Gallop, No JVD, No Murmur, No Rub GI/Abdominal: Normal Bowel Sounds, Soft, Non-Tender, No Organomegaly, No Distention, No Abnormal Bruit, No Mass (Male) Exam: Deferred Rectal (Males) Exam: Deferred Back: Normal Inspection, Full Range of Motion Extremities: Normal Inspection, Normal Range of Motion, Non-Tender, No Pedal Edema, Normal Capillary Refill Neurological: Alert, Oriented, CN II-XII Intact, Normal Cognition, Normal Gait, Normal Reflexes, No Motor/Sensory Deficits Psychiatric: Normal Affect, Normal Mood Skin: Erythema (right side of neck), Wound/Incision (right lateral neck) Course - Vital Signs Last Recorded V/S: Last Vital Signs Temp 37.2 C 10/16/17 10:21 Pulse 108 H 10/16/17 10:21 Resp 16 10/16/17 10:21 BP 130/81 10/16/17 10:21 Pulse Ox 98 10/16/17 10:21 - Orders/Labs/Meds Orders: Active Orders 24 hr Category Date Time Status CULTURE BLOOD [BC] Stat Lab 10/16/17 10:55 Results CULTURE BLOOD [BC] Stat Lab 10/16/17 10:58 Received Clindamycin Phosphate [Cleocin] 300 mg Med 10/16/17 11:53 Ordered Sodium Chloride 0.9% [Normal Saline] 50 ml IV ONETIME Blood Culture x2 Reflex Set [OM.PC] Stat Oth 10/16/17 10:49 Ordered Medication Orders Clindamycin Phosphate 300 mg/ (Sodium Chloride) 52 mls @ 50 mls/hr IV ONETIME ONE Stop: 10/16/17 12:55 Labs: Laboratory Tests 10/16/17 10/16/17 10/16/17 Range/Units 10:58 10:58 10:58 WBC 18.1 H (5.0-10.0) 10^3/uL RBC 4.45 L (4.6-6.2) 10^6/uL Hgb 13.7 L (14.0-18.0) g/dL Hct 40.9 (40.0-54.0) % MCV 91.9 (80-100) fL MCH 30.8 (27.0-34.0) pg MCHC 33.5 (33.0-35.0) g/dL Plt Count 325 (150-450) 10^3/uL Neut % (Auto) 82.2 H (42.2-75.2) % Lymph % (Auto) 8.3 L (20.5-50.1) % [place] % (Auto) 8.6 H (2-8) % Eos % (Auto) 0.7 L (1.0-3.0) % Baso % (Auto) 0.2 (0.0-1.0) % Sodium 138 (135-145) mmol/L Potassium 4.0 (3.6-5.0) mmol/L Chloride 103 (101-111) mmol/L Carbon Dioxide 27.0 (21.0-31.0) mmol/L Anion Gap 12.0 BUN 14 (7-18) mg/dL Creatinine 0.7 (0.6-1.3) mg/dL Est Cr Clr Drug Dosing 133.26 mL/min Estimated GFR (MDRD) > 60 BUN/Creatinine Ratio 20.00 Glucose 91 (74-105) mg/dL Lactic Acid 0.9 (0.5-2.2) mmol/L Calcium 8.7 (8.4-10.2) mg/dl Total Bilirubin 0.4 (0.2-1.0) mg/dL AST 21 (10-42) IU/L ALT 21 (10-60) IU/L Alkaline Phosphatase 83 (42-121) IU/L Total Protein 7.0 (6.7-8.2) g/dl Albumin 3.5 (3.2-5.5) g/dl Globulin 3.5 Albumin/Globulin Ratio 1.00 Meds: Medications Generic Name Dose Route Start Last Admin Trade Name Freq PRN Reason Stop Dose Admin Clindamycin Phosphate 300 mg/ 52 mls @ 50 mls/hr 10/16/17 11:53 Sodium Chloride IV 10/16/17 12:55 ONETIME ONE Discontinued Medications Generic Name Dose Route Start Last Admin Trade Name Freq PRN Reason Stop Dose Admin Hydromorphone HCl 0.5 mg 10/16/17 11:57 Dilaudid IVPUSH 10/16/17 11:58 ONETIME ONE Departure - Departure Time of Disposition: 12:00 Disposition: DC/Tfer to Acute Hospital 02 Condition: Poor Clinical Impression: Postoperative abscess Qualifiers: Encounter type: initial encounter Qualified Code(s): T81.4XXA - Infection following a procedure, initial encounter - Discharge Information *PRESCRIPTION DRUG MONITORING PROGRAM REVIEWED*: Not Applicable *COPY OF PRESCRIPTION DRUG MONITORING REPORT IN PATIENT DIPTI: Not Applicable Forms: Interfacility Transfer EMTALA Care Plan Goals: Discussed the examination, history, CT results and lab results with [facility] (in direct contact with Dr. Negrete). Dr. Negrete accepted the patient for continued evaluation and treatment. The patient was given IV Clindamycin and IV Dilaudid while in the ED. The patient will be transported by [facility]. - My Orders Last 24 Hours: My Active Orders 10/16/17 10:49 Blood Culture x2 Reflex Set [OM.PC] Stat 10/16/17 10:55 CULTURE BLOOD [BC] Stat 10/16/17 10:58 CULTURE BLOOD [BC] Stat 10/16/17 11:53 Clindamycin Phosphate [Cleocin] 300 mg Sodium Chloride 0.9% [Normal Saline] 50 ml IV ONETIME - Assessment/Plan Last 24 Hours: My Active Orders 10/16/17 10:49 Blood Culture x2 Reflex Set [OM.PC] Stat 10/16/17 10:55 CULTURE BLOOD [BC] Stat 10/16/17 10:58 CULTURE BLOOD [] Stat 10/16/17 11:53 Clindamycin Phosphate [Cleocin] 300 mg Sodium Chloride 0.9% [Normal Saline] 50 ml IV ONETIME
[2017-10-16 11:31] LABS: CHLORIDE,CL 103 mmol/L (101-111); SODIUM,NA 138 mmol/L (135-145)
[2017-10-16] MEDS ORDERED: HYDROmorphone 0.5 MG/0.5 ML Syringe IVPUSH ONE (11:57)
[2017-10-16 13:02] VITALS: BP 143/86
== END 2017-10-16 12:46 ==
LOC: EDUNIT# 10:10 → DL.ED 10:10
DX: T81.4XXA Infection following a procedure, initial encounter (principal); L02.818 Cutaneous abscess of other sites; F17.210 Nicotine dependence, cigarettes, uncomplicated; Z88.0 Allergy status to penicillin
CPT/HCPCS: 36415; 80053; 83605; 85025; 87040; 96365; 96375; 99284; J1170; J3490; J7050

== ENCOUNTER 2017-10-25 09:03 | Inpatient (IN) | payer MEDICAID ==
[2017-10-25] MEDS ORDERED: Pantoprazole 40 MG Tab.CR PO PRN (14:03)
[2017-10-25] MEDS ORDERED: Docusate Sodium 100 MG Cap PO PRN (14:04)
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
[2017-10-25] MEDS: Sodium Chloride 0.9% 10 ML Syringe FLUSH PRN (14:44)
[2017-10-25] MEDS: Piperacillin/Tazobactam 3.375 GM in Sodium Chloride 0.9% 100 ML IV SCH ×2 (14:45→22:02)
[2017-10-25] MEDS: Acetaminophen/oxyCODONE 325-5 MG Tab PO PRN ×2 (14:58→21:24)
[2017-10-25] MEDS: diphenhydrAMINE 25 MG Tab PO SCH (21:16)
[2017-10-25] MEDS: carBAMazepine 200 MG Tab PO SCH (21:16)
[2017-10-25] MEDS: Heparin Sodium 5,000 Units/ML Vial SUBCUT SCH (22:02)
[2017-10-25] MEDS: ALPRAZolam 0.25 MG Tab PO PRN (22:41)
[2017-10-26] MEDS: Piperacillin/Tazobactam 3.375 GM in Sodium Chloride 0.9% 100 ML IV SCH ×3 (05:59→21:48)
[2017-10-26] MEDS: Heparin Sodium 5,000 Units/ML Vial SUBCUT SCH ×3 (06:00→21:45)
[2017-10-26] MEDS: Multivitamins,Therapeutic Tab PO SCH (09:28)
[2017-10-26] MEDS: carBAMazepine 200 MG Tab PO SCH ×2 (09:28→21:43)
[2017-10-26] MEDS: Acetaminophen/oxyCODONE 325-5 MG Tab PO PRN ×4 (09:32→22:37)
[2017-10-26] MEDS: ALPRAZolam 0.25 MG Tab PO PRN ×2 (14:15→22:37)
[2017-10-26] MEDS: diphenhydrAMINE 25 MG Tab PO SCH (21:43)
[2017-10-26] MEDS: Sodium Chloride 0.9% 10 ML Syringe FLUSH PRN (21:47)
[2017-10-27] MEDS: Acetaminophen/oxyCODONE 325-5 MG Tab PO PRN ×5 (03:59→19:45)
[2017-10-27] MEDS: Piperacillin/Tazobactam 3.375 GM in Sodium Chloride 0.9% 100 ML IV SCH ×3 (05:55→22:02)
[2017-10-27] MEDS: Sodium Chloride 0.9% 10 ML Syringe FLUSH PRN ×2 (05:57→13:33)
[2017-10-27] MEDS: Heparin Sodium 5,000 Units/ML Vial SUBCUT SCH ×3 (05:59→22:00)
[2017-10-27] MEDS: Multivitamins,Therapeutic Tab PO SCH (08:50)
[2017-10-27] MEDS: carBAMazepine 200 MG Tab PO SCH ×2 (08:50→20:52)
[2017-10-27] MEDS: ALPRAZolam 0.25 MG Tab PO PRN ×2 (11:32→22:01)
[2017-10-27] MEDS: diphenhydrAMINE 25 MG Tab PO SCH (22:02)
[2017-10-28] MEDS: Acetaminophen/oxyCODONE 325-5 MG Tab PO PRN ×6 (00:05→22:51)
[2017-10-28] MEDS: Heparin Sodium 5,000 Units/ML Vial SUBCUT SCH ×3 (05:55→22:01)
[2017-10-28] MEDS: Piperacillin/Tazobactam 3.375 GM in Sodium Chloride 0.9% 100 ML IV SCH ×3 (05:56→22:01)
[2017-10-28 07:06] LABS: ANION GAP 13.7; CHLORIDE,CL 107 mmol/L (101-111); SODIUM,NA 142 mmol/L (135-145)
[2017-10-28] MEDS: Multivitamins,Therapeutic Tab PO SCH (08:51)
[2017-10-28] MEDS: carBAMazepine 200 MG Tab PO SCH ×2 (08:51→20:54)
[2017-10-28] MEDS: ALPRAZolam 0.25 MG Tab PO PRN ×2 (08:52→17:13)
--- NOTE | 2017-10-28 11:59 | PCM.PN ---
- General Info Date of Service: 10/28/17 Admission Dx/Problem (Free Text): Admission Diagnosis/Problem Admission Diagnosis/Problem Cellulitis and abscess of face Subjective Update: pt was seen in room, he is doing well and has lose stool but in a small quantity and also feeling bloated , No nausea or vomiting , says still getting anxiety attack Functional Status: Reports: Pain Controlled, Tolerating Diet, Ambulating, Urinating - Review of Systems General: Reports: Appetite (acceptable, can not chew food). Denies: Fever, Chills HEENT: Reports: Other (has dressing around neck for Rt jaw wound ). Denies: Ear Pain, Eye Pain, Sinus Congestion, Sore Throat Pulmonary: Denies: Shortness of Breath, Pleuritic Chest Pain, Cough, Wheezing Cardiovascular: Denies: Chest Pain, Dyspnea on Exertion, Lightheadedness Gastrointestinal: Reports: Diarrhea. Denies: Abdominal Pain, Constipation, Difficulty Swallowing, Nausea, Vomiting Genitourinary: Denies: Dysuria, Frequency, Urgency, Flank Pain Musculoskeletal: Reports: Neck Pain. Denies: Back Pain, Joint Swelling Skin: Denies: Cyanosis, Diaphoresis, Bruising, Pruritis Neurological: Denies: Confusion, Tingling, Tremors Psychiatric: Reports: Anxiety. Denies: Confusion, Depression - Patient Data Vitals - Most Recent: Last Vital Signs Temp 36.4 C 10/28/17 07:56 Pulse 67 10/28/17 07:56 Resp 20 10/28/17 07:56 BP 110/53 L 10/28/17 07:56 Pulse Ox 99 10/28/17 07:56 Weight - Most Recent: 89.176 kg I&O - Last 24 Hours: Intake & Output 10/27/17 10/28/17 10/28/17 22:59 06:59 14:59 Intake Total 1080 313 360 Balance 1080 313 360 Lab Results Last 24 Hours: Laboratory Results - last 24 hr 10/28/17 10/28/17 Range/Units 05:50 05:50 WBC 5.7 (5.0-10.0) 10^3/uL RBC 4.51 L (4.6-6.2) 10^6/uL Hgb 13.8 L (14.0-18.0) g/dL Hct 41.6 (40.0-54.0) % MCV 92.2 (80-100) fL MCH 30.6 (27.0-34.0) pg MCHC 33.2 (33.0-35.0) g/dL Plt Count 371 (150-450) 10^3/uL Neut % (Auto) 58.9 (42.2-75.2) % Lymph % (Auto) 30.7 (20.5-50.1) % [place] % (Auto) 6.7 (2-8) % Eos % (Auto) 3.2 H (1.0-3.0) % Baso % (Auto) 0.5 (0.0-1.0) % Sodium 142 (135-145) mmol/L Potassium 3.7 (3.6-5.0) mmol/L Chloride 107 (101-111) mmol/L Carbon Dioxide 25.0 (21.0-31.0) mmol/L Anion Gap 13.7 BUN 15 (7-18) mg/dL Creatinine 0.7 (0.6-1.3) mg/dL Est Cr Clr Drug Dosing 133.26 mL/min Estimated GFR (MDRD) > 60 Glucose 95 (74-105) mg/dL Calcium 9.0 (8.4-10.2) mg/dl Med Orders - Current: Current Medications Alprazolam (Xanax) 0.25 mg PO Q8H PRN PRN Reason: Anxiety Last Admin: 10/28/17 08:52 Dose: 0.25 mg Carbamazepine (Tegretol Tab) 200 mg PO BID DAYANARA Last Admin: 10/28/17 08:51 Dose: 200 mg Diphenhydramine HCl (Benadryl) 25 mg PO BEDTIME DAYANARA Last Admin: 10/27/17 22:02 Dose: 25 mg Docusate Sodium (Colace) 100 mg PO BID PRN PRN Reason: Constipation Last Admin: 10/27/17 05:59 Dose: 100 mg Heparin Sodium (Porcine) (Heparin Sodium) 5,000 units SUBCUT Q8HR DAYANARA Last Admin: 10/28/17 05:55 Dose: 5,000 units Piperacillin Sod/Tazobactam (Sod 3.375 gm/ Sodium Chloride) 100 mls @ 200 mls/ hr IV Q8HR [facility] Last Infusion: 10/28/17 06:37 Dose: Infused Multivitamins (Thera) 1 each PO DAILY [facility] Last Admin: 10/28/17 08:51 Dose: 1 each Oxycodone/Acetaminophen (Percocet 325-5 Mg) 1 tab PO Q4HR PRN PRN Reason: Pain Last Admin: 10/28/17 10:25 Dose: 1 tab Pantoprazole Sodium (Protonix) 40 mg PO DAILY PRN PRN Reason: Heartburn Sodium Chloride (Saline Flush) 10 ml FLUSH ASDIRECTED PRN PRN Reason: Keep Vein Open Last Admin: 10/27/17 13:33 Dose: 10 ml - Exam Quality Assessment: DVT Prophylaxis. No: Supplemental Oxygen, Urine Catheter General: Alert, Oriented, Cooperative, No Acute Distress HEENT: Pupils Equal, Mucous Membr. Moist/[place] Neck: Supple, No JVD, No Thyromegaly Lungs: Clear to Auscultation, Normal Respiratory Effort Cardiovascular: Regular Rate, Regular Rhythm, No Murmurs GI/Abdominal Exam: Normal Bowel Sounds, Soft, Non-Tender. No: Guarding, Rebound (Male) Exam: Deferred Back Exam: Normal Inspection, Full Range of Motion Extremities: Normal Inspection, No Pedal Edema Skin: Warm, Dry Wound/Incisions: Healing Well Neurological: No New Focal Deficit Psy/Mental Status: Alert, Normal Affect, Normal Mood - Problem List Review Problem List Initiated/Reviewed/Updated: Yes - Plan Plan:: The patient is a 46-year-old with a history of seizure disorder, anxiety. The patient presented with injury to the right side of the face. Was diagnosed with a fractured jaw. Underwent multiple surgeries in [place] Continue drain and wound care Postoperative abscess of the right side of the face Treat with Zosyn Follow-up with ID clinic on 31 October History of seizure disorder Treat with carbamazepine Anxiety Treat with Xanax Diarrhea: This is likely from Boost, as he also feeling bloated also may have contribution from Abx -Will stop stool softner -Will stop Boost -will send stool for C.Diff -Will continue Mechanically soft diet DVT prophylaxis with subcutaneous heparin
[2017-10-28] MEDS: diphenhydrAMINE 25 MG Tab PO SCH (22:00)
[2017-10-29] MEDS: Piperacillin/Tazobactam 3.375 GM in Sodium Chloride 0.9% 100 ML IV SCH ×3 (05:28→22:05)
[2017-10-29] MEDS: Heparin Sodium 5,000 Units/ML Vial SUBCUT SCH ×3 (05:33→21:31)
[2017-10-29] MEDS: Acetaminophen/oxyCODONE 325-5 MG Tab PO PRN ×5 (05:36→23:27)
[2017-10-29] MEDS: ALPRAZolam 0.25 MG Tab PO PRN ×3 (05:37→22:42)
[2017-10-29] MEDS: carBAMazepine 200 MG Tab PO SCH ×2 (09:45→21:28)
[2017-10-29] MEDS: Multivitamins,Therapeutic Tab PO SCH (09:45)
[2017-10-29] MEDS: Sodium Chloride 0.9% 10 ML Syringe FLUSH PRN ×3 (21:42→22:40)
[2017-10-29] MEDS: diphenhydrAMINE 25 MG Tab PO SCH (21:59)
[2017-10-30] MEDS: Sodium Chloride 0.9% 10 ML Syringe FLUSH PRN ×4 (05:44→22:08)
[2017-10-30] MEDS: Piperacillin/Tazobactam 3.375 GM in Sodium Chloride 0.9% 100 ML IV SCH ×3 (05:49→21:29)
[2017-10-30] MEDS: Heparin Sodium 5,000 Units/ML Vial SUBCUT SCH ×3 (06:33→21:35)
[2017-10-30] MEDS: Acetaminophen/oxyCODONE 325-5 MG Tab PO PRN ×5 (06:41→23:21)
[2017-10-30] MEDS: ALPRAZolam 0.25 MG Tab PO PRN ×2 (08:16→16:59)
[2017-10-30] MEDS: carBAMazepine 200 MG Tab PO SCH ×2 (08:16→21:34)
[2017-10-30] MEDS: Multivitamins,Therapeutic Tab PO SCH (08:16)
[2017-10-30] MEDS: diphenhydrAMINE 25 MG Tab PO SCH (22:33)
[2017-10-31] MEDS: Sodium Chloride 0.9% 10 ML Syringe FLUSH PRN ×2 (05:35→06:20)
[2017-10-31] MEDS: Piperacillin/Tazobactam 3.375 GM in Sodium Chloride 0.9% 100 ML IV SCH ×3 (05:35→21:58)
[2017-10-31] MEDS: Heparin Sodium 5,000 Units/ML Vial SUBCUT SCH ×3 (05:36→22:02)
[2017-10-31] MEDS: Acetaminophen/oxyCODONE 325-5 MG Tab PO PRN ×3 (05:43→19:42)
[2017-10-31 07:05] LABS: ANION GAP 13.8; CHLORIDE,CL 105 mmol/L (101-111); SODIUM,NA 141 mmol/L (135-145)
[2017-10-31] MEDS: ALPRAZolam 0.25 MG Tab PO PRN ×2 (07:52→19:43)
[2017-10-31] MEDS: Multivitamins,Therapeutic Tab PO SCH (09:29)
[2017-10-31] MEDS: carBAMazepine 200 MG Tab PO SCH ×2 (09:29→20:35)
[2017-10-31] MEDS: diphenhydrAMINE 25 MG Tab PO SCH (22:24)
[2017-11-01] MEDS: Piperacillin/Tazobactam 3.375 GM in Sodium Chloride 0.9% 100 ML IV SCH ×3 (06:09→22:45)
[2017-11-01] MEDS: Heparin Sodium 5,000 Units/ML Vial SUBCUT SCH ×3 (06:11→21:35)
[2017-11-01] MEDS: Acetaminophen/oxyCODONE 325-5 MG Tab PO PRN ×4 (06:15→20:19)
--- NOTE | 2017-11-01 08:53 | PN ---
DATE: 10/31/2017 SUBJECTIVE: Mr. Crespo is a 47-year-old male who is in Swing Bed for IV antibiotics. He has a jaw fracture for which he had surgery, and subsequently developed an abscess. Drain was placed. He is being followed by Infectious Disease. He was seen by Infectious Disease today, no changes were made, and he will continue on his current regimen of IV Zosyn 3.375 g IV every 8 hours. He will follow up next week with Infectious Disease. Lab work today showed stable hemoglobin, hematocrit, white count, and platelets. Sed rate was 3 mm/hour, and CRP was 0.6. Basic panel was completely within normal limits. PLAN: No changes are made in his care. [facility] /[id number] [place]
[2017-11-01] MEDS: Multivitamins,Therapeutic Tab PO SCH (09:13)
[2017-11-01] MEDS: carBAMazepine 200 MG Tab PO SCH ×2 (09:14→21:29)
[2017-11-01] MEDS: ALPRAZolam 0.25 MG Tab PO PRN ×2 (09:19→22:47)
[2017-11-01] MEDS: Sodium Chloride 0.9% 10 ML Syringe FLUSH PRN ×3 (14:23→23:30)
[2017-11-01] MEDS: MELATONIN 5 MG PO SCH (21:28)
[2017-11-01] MEDS: diphenhydrAMINE 25 MG Tab PO SCH (22:47)
[2017-11-02] MEDS: Sodium Chloride 0.9% 10 ML Syringe FLUSH PRN ×3 (05:20→14:11)
[2017-11-02] MEDS: Piperacillin/Tazobactam 3.375 GM in Sodium Chloride 0.9% 100 ML IV SCH ×3 (05:22→21:34)
[2017-11-02] MEDS: Heparin Sodium 5,000 Units/ML Vial SUBCUT SCH ×3 (05:27→21:33)
[2017-11-02] MEDS: carBAMazepine 200 MG Tab PO SCH ×2 (09:20→21:33)
[2017-11-02] MEDS: Multivitamins,Therapeutic Tab PO SCH (09:22)
[2017-11-02] MEDS: Acetaminophen/oxyCODONE 325-5 MG Tab PO PRN ×4 (09:22→23:04)
[2017-11-02] MEDS: ALPRAZolam 0.25 MG Tab PO PRN ×2 (10:54→21:33)
[2017-11-02] MEDS: MELATONIN 5 MG PO SCH (21:33)
[2017-11-02] MEDS: diphenhydrAMINE 25 MG Tab PO SCH (23:04)
[2017-11-03] MEDS: Heparin Sodium 5,000 Units/ML Vial SUBCUT SCH ×2 (06:28→13:17)
[2017-11-03] MEDS: Piperacillin/Tazobactam 3.375 GM in Sodium Chloride 0.9% 100 ML IV SCH ×3 (06:28→21:56)
[2017-11-03] MEDS: Multivitamins,Therapeutic Tab PO SCH (08:56)
[2017-11-03] MEDS: carBAMazepine 200 MG Tab PO SCH ×2 (08:56→21:56)
[2017-11-03] MEDS: Acetaminophen/oxyCODONE 325-5 MG Tab PO PRN ×4 (09:01→22:58)
[2017-11-03] MEDS: ALPRAZolam 0.25 MG Tab PO PRN ×2 (11:11→23:07)
[2017-11-03] MEDS: Sodium Chloride 0.9% 10 ML Syringe FLUSH PRN (13:25)
[2017-11-03] MEDS: MELATONIN 5 MG PO SCH (21:56)
[2017-11-03] MEDS: diphenhydrAMINE 25 MG Tab PO SCH (22:57)
[2017-11-04] MEDS: Piperacillin/Tazobactam 3.375 GM in Sodium Chloride 0.9% 100 ML IV SCH ×3 (05:30→22:00)
[2017-11-04] MEDS: Acetaminophen/oxyCODONE 325-5 MG Tab PO PRN ×5 (05:40→22:29)
[2017-11-04] MEDS: carBAMazepine 200 MG Tab PO SCH ×2 (09:26→22:06)
[2017-11-04] MEDS: Multivitamins,Therapeutic Tab PO SCH (09:26)
[2017-11-04] MEDS: ALPRAZolam 0.25 MG Tab PO PRN ×2 (09:27→22:09)
[2017-11-04] MEDS: Sodium Chloride 0.9% 10 ML Syringe FLUSH PRN ×2 (22:00→22:33)
[2017-11-04] MEDS: MELATONIN 5 MG PO SCH (22:06)
[2017-11-04] MEDS: diphenhydrAMINE 25 MG Tab PO SCH (22:30)
[2017-11-05] MEDS: Sodium Chloride 0.9% 10 ML Syringe FLUSH PRN ×2 (05:51→16:56)
[2017-11-05] MEDS: Piperacillin/Tazobactam 3.375 GM in Sodium Chloride 0.9% 100 ML IV SCH ×3 (05:52→21:37)
[2017-11-05] MEDS: Acetaminophen/oxyCODONE 325-5 MG Tab PO PRN ×4 (07:31→21:35)
[2017-11-05] MEDS: ALPRAZolam 0.25 MG Tab PO PRN ×2 (07:52→21:37)
[2017-11-05] MEDS: carBAMazepine 200 MG Tab PO SCH ×2 (07:59→21:34)
[2017-11-05] MEDS: Multivitamins,Therapeutic Tab PO SCH (07:59)
[2017-11-05] MEDS: MELATONIN 5 MG PO SCH (21:37)
[2017-11-05] MEDS: diphenhydrAMINE 25 MG Tab PO SCH (22:34)
[2017-11-06] MEDS: Acetaminophen/oxyCODONE 325-5 MG Tab PO PRN ×5 (04:57→23:23)
[2017-11-06] MEDS: Piperacillin/Tazobactam 3.375 GM in Sodium Chloride 0.9% 100 ML IV SCH ×3 (06:15→21:49)
[2017-11-06] MEDS: Multivitamins,Therapeutic Tab PO SCH (09:16)
[2017-11-06] MEDS: carBAMazepine 200 MG Tab PO SCH ×2 (09:16→21:49)
[2017-11-06] MEDS: ALPRAZolam 0.25 MG Tab PO PRN ×2 (11:12→20:39)
[2017-11-06] MEDS: MELATONIN 5 MG PO SCH (21:49)
[2017-11-06] MEDS: diphenhydrAMINE 25 MG Tab PO SCH (23:14)
[2017-11-07] MEDS: Piperacillin/Tazobactam 3.375 GM in Sodium Chloride 0.9% 100 ML IV SCH ×3 (06:01→22:21)
[2017-11-07] MEDS: Acetaminophen/oxyCODONE 325-5 MG Tab PO PRN ×4 (07:44→20:21)
[2017-11-07] MEDS: carBAMazepine 200 MG Tab PO SCH ×2 (09:33→20:22)
[2017-11-07] MEDS: ALPRAZolam 0.25 MG Tab PO PRN ×2 (09:33→22:28)
[2017-11-07] MEDS: Multivitamins,Therapeutic Tab PO SCH (09:33)
[2017-11-07] MEDS: Sodium Chloride 0.9% 10 ML Syringe FLUSH PRN (14:02)
[2017-11-07] MEDS: MELATONIN 5 MG PO SCH (20:23)
[2017-11-07] MEDS: diphenhydrAMINE 25 MG Tab PO SCH (22:29)
[2017-11-08] MEDS: Piperacillin/Tazobactam 3.375 GM in Sodium Chloride 0.9% 100 ML IV SCH ×3 (05:30→23:33)
[2017-11-08] MEDS: Acetaminophen/oxyCODONE 325-5 MG Tab PO PRN ×3 (05:30→23:34)
[2017-11-08] MEDS: Sodium Chloride 0.9% 10 ML Syringe FLUSH PRN ×3 (05:31→23:33)
[2017-11-08] MEDS: carBAMazepine 200 MG Tab PO SCH ×2 (08:52→23:33)
[2017-11-08] MEDS: Multivitamins,Therapeutic Tab PO SCH (08:52)
[2017-11-08] MEDS: ALPRAZolam 0.25 MG Tab PO PRN (08:53)
[2017-11-08] MEDS: MELATONIN 5 MG PO SCH (23:13)
[2017-11-08] MEDS: diphenhydrAMINE 25 MG Tab PO SCH (23:34)
[2017-11-09] MEDS: Sodium Chloride 0.9% 10 ML Syringe FLUSH PRN ×3 (06:23→21:48)
[2017-11-09] MEDS: Piperacillin/Tazobactam 3.375 GM in Sodium Chloride 0.9% 100 ML IV SCH ×3 (06:23→21:48)
[2017-11-09] MEDS: Acetaminophen/oxyCODONE 325-5 MG Tab PO PRN ×4 (06:57→20:15)
[2017-11-09] MEDS: ALPRAZolam 0.25 MG Tab PO PRN ×2 (09:29→21:53)
[2017-11-09] MEDS: Multivitamins,Therapeutic Tab PO SCH (09:29)
[2017-11-09] MEDS: carBAMazepine 200 MG Tab PO SCH ×2 (09:29→21:48)
[2017-11-09] MEDS: diphenhydrAMINE 25 MG Tab PO SCH (21:48)
[2017-11-10] MEDS: Acetaminophen/oxyCODONE 325-5 MG Tab PO PRN ×4 (03:40→19:28)
[2017-11-10] MEDS: MELATONIN 5 MG BUCCAL PRN (04:33)
[2017-11-10] MEDS: Piperacillin/Tazobactam 3.375 GM in Sodium Chloride 0.9% 100 ML IV SCH ×3 (06:23→22:02)
[2017-11-10] MEDS: Multivitamins,Therapeutic Tab PO SCH (09:12)
[2017-11-10] MEDS: carBAMazepine 200 MG Tab PO SCH ×2 (09:12→22:03)
[2017-11-10] MEDS: ALPRAZolam 0.25 MG Tab PO PRN ×2 (12:38→22:03)
--- NOTE | 2017-11-10 13:41 | PCM.PN ---
- General Info Date of Service: 11/10/17 Admission Dx/Problem (Free Text): Admission Diagnosis/Problem Admission Diagnosis/Problem Cellulitis and abscess of face Subjective Update: Patient was seen and examined today. No acute event overnight. Wound looks clean and with minimal discharge. Functional Status: Reports: Pain Controlled - Review of Systems General: Reports: No Symptoms HEENT: Reports: No Symptoms Pulmonary: Reports: No Symptoms Cardiovascular: Reports: No Symptoms Gastrointestinal: Reports: No Symptoms Genitourinary: Reports: No Symptoms Musculoskeletal: Reports: No Symptoms Skin: Reports: No Symptoms Neurological: Reports: No Symptoms Psychiatric: Reports: No Symptoms - Patient Data Vitals - Most Recent: Last Vital Signs Temp 99.8 F 11/10/17 07:59 Pulse 105 H 11/10/17 07:59 Resp 18 11/10/17 07:59 BP 121/67 11/10/17 07:59 Pulse Ox 96 11/10/17 07:59 Weight - Most Recent: 197 lb I&O - Last 24 Hours: Intake & Output 11/09/17 11/10/17 11/10/17 22:59 06:59 14:59 Intake Total 680 409 320 Balance 680 409 320 Lab Results Last 24 Hours: Laboratory Results - last 24 hr 11/09/17 11/09/17 Range/Units 17:06 17:32 WBC 8.9 (5.0-10.0) 10^3/uL RBC 4.50 L (4.6-6.2) 10^6/uL Hgb 13.7 L (14.0-18.0) g/dL Hct 40.7 (40.0-54.0) % MCV 90.4 (80-100) fL MCH 30.4 (27.0-34.0) pg MCHC 33.7 (33.0-35.0) g/dL Plt Count 167 (150-450) 10^3/uL Urine Color Yellow (YELLOW) Urine Appearance Clear (CLEAR) Urine pH 7.0 (5.0-9.0) Ur Specific [place] 1.015 (1.005-1.030) Urine Protein Negative (NEGATIVE) Urine Glucose (UA) Negative (NEGATIVE) Urine Ketones Negative (NEGATIVE) Urine Occult Blood Negative (NEGATIVE) Urine Nitrite Negative (NEGATIVE) Urine Bilirubin Negative (NEGATIVE) Urine Urobilinogen 0.2 (0.2-1.0) mg/dL Ur Leukocyte Esterase Negative (NEGATIVE) Urine RBC 0-5 /HPF Urine WBC 0-5 (0-5/HPF) /HPF Ur Epithelial Cells Rare /HPF Urine Bacteria Rare (0-FEW/HPF) /HPF Med Orders - Current: Current Medications Alprazolam (Xanax) 0.25 mg PO Q8H PRN PRN Reason: Anxiety Last Admin: 11/10/17 12:38 Dose: 0.25 mg Carbamazepine (Tegretol Tab) 200 mg PO BID [facility] Last Admin: 11/10/17 09:12 Dose: 200 mg Diphenhydramine HCl (Benadryl) 25 mg PO 0 [facility] Last Admin: 11/09/17 21:48 Dose: 25 mg Docusate Sodium (Colace) 100 mg PO BID PRN PRN Reason: Constipation Last Admin: 10/27/17 05:59 Dose: 100 mg Piperacillin Sod/Tazobactam (Sod 3.375 gm/ Sodium Chloride) 100 mls @ 200 mls/ hr IV Q8HR [facility] Last Admin: 11/10/17 06:23 Dose: 200 mls/hr Multivitamins (Thera) 1 each PO DAILY [facility] Last Admin: 11/10/17 09:12 Dose: 1 each Patients Own (Melatonin 5mg) 0 each BUCCAL BEDTIME PRN PRN Reason: insomnia Last Admin: 11/10/17 04:33 Dose: 5 each Oxycodone/Acetaminophen (Percocet 325-5 Mg) 1 tab PO Q4HR PRN PRN Reason: Pain Last Admin: 11/10/17 09:12 Dose: 1 tab Pantoprazole Sodium (Protonix) 40 mg PO DAILY PRN PRN Reason: Heartburn Sodium Chloride (Saline Flush) 10 ml FLUSH ASDIRECTED PRN PRN Reason: Keep Vein Open Last Admin: 11/09/17 21:48 Dose: 10 ml Discontinued Medications Diphenhydramine HCl (Benadryl) 25 mg PO BEDTIME [facility] Last Admin: 10/30/17 22:33 Dose: 25 mg Heparin Sodium (Porcine) (Heparin Sodium) 5,000 units SUBCUT Q8HR [facility] Last Admin: 11/03/17 13:17 Dose: 5,000 units Melatonin 5 Mg Pt' (s Own Med) 0 each PO BEDTIME [facility] Last Admin: 11/08/17 23:13 Dose: Not Given - Exam Quality Assessment: DVT Prophylaxis General: Alert, Oriented HEENT: Pupils Equal, Pupils Reactive, EOMI, Mucous Membr. Moist/[place] Neck: Supple Lungs: Clear to Auscultation, Normal Respiratory Effort Cardiovascular: Regular Rate, Regular Rhythm GI/Abdominal Exam: Normal Bowel Sounds, Soft, Non-Tender, No Organomegaly, No Distention, No Abnormal Bruit, No Mass, Pelvis Stable (Male) Exam: No Hernia, Normal Inspection, Normal Prostate, Circumcised Back Exam: Normal Inspection, Full Range of Motion Extremities: Normal Inspection, Normal Range of Motion, Non-Tender, No Pedal Edema, Normal Capillary Refill Skin: Warm, Dry, Intact Wound/Incisions: Healing Well Neurological: No New Focal Deficit Psy/Mental Status: Alert, Normal Affect, Normal Mood - Problem List Review Problem List Initiated/Reviewed/Updated: Yes - My Orders Last 24 Hours: My Active Orders 11/09/17 15:56 Blood Culture x2 Reflex Set [OM.PC] Stat 11/09/17 16:00 Non-Formulary Medication [NF Drug] 0 each BUCCAL BEDTIME PRN 11/09/17 17:06 CULTURE BLOOD [BC] Stat 11/09/17 17:09 CULTURE BLOOD [BC] Stat 11/14/17 06:00 ALANINE AMINOTRANSFERASE,ALT [CHEM] Routine CBC WITH AUTO DIFF [HEME] Routine CREATININE W/GFR [CHEM] Routine CRP [C-REACTIVE PROTEIN] [CHEM] Routine ESR [SEDIMENTATION RATE MANUAL] [HEME] Routine - Plan Plan:: The patient is a 46-year-old with a history of seizure disorder, anxiety. The patient presented with injury to the right side of the face. Was diagnosed with a fractured jaw. Underwent multiple surgeries in [place] Continue wound care Postoperative abscess of the right side of the face Continue Zosyn History of seizure disorder Treat with carbamazepine Anxiety Treat with Xanax Diarrhea Resolved DVT prophylaxis with subcutaneous heparin
[2017-11-10] MEDS: diphenhydrAMINE 25 MG Tab PO SCH (22:03)
[2017-11-10] MEDS: Sodium Chloride 0.9% 10 ML Syringe FLUSH PRN (22:03)
[2017-11-11] MEDS: Acetaminophen/oxyCODONE 325-5 MG Tab PO PRN ×6 (03:22→20:54)
[2017-11-11] MEDS: MELATONIN 5 MG BUCCAL PRN (03:25)
[2017-11-11] MEDS: Piperacillin/Tazobactam 3.375 GM in Sodium Chloride 0.9% 100 ML IV SCH ×3 (06:11→21:54)
[2017-11-11] MEDS: Sodium Chloride 0.9% 10 ML Syringe FLUSH PRN ×2 (06:11→14:06)
[2017-11-11] MEDS: Multivitamins,Therapeutic Tab PO SCH (08:53)
[2017-11-11] MEDS: carBAMazepine 200 MG Tab PO SCH ×2 (08:54→20:52)
[2017-11-11] MEDS: ALPRAZolam 0.25 MG Tab PO PRN ×2 (11:23→20:52)
[2017-11-11] MEDS: diphenhydrAMINE 25 MG Tab PO SCH (22:32)
[2017-11-12] MEDS: Acetaminophen/oxyCODONE 325-5 MG Tab PO PRN ×6 (01:32→22:27)
[2017-11-12] MEDS: MELATONIN 5 MG BUCCAL PRN ×2 (01:38→22:28)
[2017-11-12] MEDS: Piperacillin/Tazobactam 3.375 GM in Sodium Chloride 0.9% 100 ML IV SCH ×2 (06:06→13:16)
[2017-11-12] MEDS: ALPRAZolam 0.25 MG Tab PO PRN ×2 (06:39→15:33)
[2017-11-12] MEDS: carBAMazepine 200 MG Tab PO SCH ×2 (08:31→20:17)
[2017-11-12] MEDS: Sodium Chloride 0.9% 10 ML Syringe FLUSH PRN (08:32)
[2017-11-12] MEDS: Multivitamins,Therapeutic Tab PO SCH (08:32)
[2017-11-12] MEDS ORDERED: Iopamidol 612 MG/ML 100 ML Bottle IVPUSH ONE (15:26)
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
[2017-11-12] MEDS ORDERED: Acetaminophen/oxyCODONE 325-5 MG Tab PO ONE (20:04)
[2017-11-12] MEDS: diphenhydrAMINE 25 MG Tab PO SCH (22:27)
[2017-11-13] MEDS: ALPRAZolam 0.25 MG Tab PO PRN ×2 (04:03→20:54)
[2017-11-13] MEDS: Acetaminophen/oxyCODONE 325-5 MG Tab PO PRN ×4 (04:03→23:09)
[2017-11-13] MEDS: carBAMazepine 200 MG Tab PO SCH ×2 (08:15→20:42)
[2017-11-13] MEDS: Multivitamins,Therapeutic Tab PO SCH (08:15)
[2017-11-13] MEDS: Piperacillin/Tazobactam 3.375 GM in Sodium Chloride 0.9% 100 ML IV SCH (22:19)
[2017-11-13] MEDS: diphenhydrAMINE 25 MG Tab PO SCH (22:19)
[2017-11-13] MEDS: Sodium Chloride 0.9% 10 ML Syringe FLUSH PRN (22:21)
[2017-11-14] MEDS: Piperacillin/Tazobactam 3.375 GM in Sodium Chloride 0.9% 100 ML IV SCH (05:24)
[2017-11-14] MEDS: Acetaminophen/oxyCODONE 325-5 MG Tab PO PRN ×4 (07:26→20:00)
[2017-11-14] MEDS: carBAMazepine 200 MG Tab PO SCH ×2 (08:37→20:33)
[2017-11-14] MEDS: Multivitamins,Therapeutic Tab PO SCH (08:37)
[2017-11-14] MEDS: Sodium Chloride 0.9% 10 ML Syringe FLUSH SCH ×2 (09:00→20:37)
--- NOTE | 2017-11-14 10:15 | PCM.PN ---
- General Info Date of Service: 11/14/17 Admission Dx/Problem (Free Text): Admission Diagnosis/Problem Admission Diagnosis/Problem Cellulitis and abscess of face Subjective Update: Has had low grade fever in the past few days. No associated cough, urine burning. Wound seemed improved. minimal drainage seen by ID plan was to stop Abx follow fever and wbc Functional Status: Reports: Tolerating Diet - Review of Systems General: Reports: Fever (low grade) Pulmonary: Denies: Shortness of Breath Cardiovascular: Denies: Chest Pain Genitourinary: Denies: Dysuria Musculoskeletal: Reports: Neck Pain, Shoulder Pain, Back Pain Neurological: Denies: Confusion - Patient Data Vitals - Most Recent: Last Vital Signs Temp 36.8 C 11/14/17 08:00 Pulse 88 11/14/17 02:56 Resp 16 11/14/17 08:00 BP 102/55 L 11/14/17 08:00 Pulse Ox 100 11/14/17 08:00 Weight - Most Recent: 90.265 kg I&O - Last 24 Hours: Intake & Output 11/13/17 11/14/17 11/14/17 22:59 06:59 14:59 Intake Total 300 Balance 300 [place] Results Last 24 Hours: Microbiology 11/12/17 02:00 Aerobic Blood Culture - Preliminary Blood - Venous - Lab Draw NO GROWTH AFTER 2 DAYS Anaerobic Blood Culture - Preliminary NO GROWTH AFTER 2 DAYS 11/12/17 01:55 Aerobic Blood Culture - Preliminary Blood - Venous NO GROWTH AFTER 2 DAYS Anaerobic Blood Culture - Preliminary NO GROWTH AFTER 2 DAYS 11/09/17 17:09 Aerobic Blood Culture - Preliminary Blood - Venous - Lab Draw NO GROWTH AFTER 4 DAYS Anaerobic Blood Culture - Preliminary NO GROWTH AFTER 4 DAYS 11/09/17 17:06 Aerobic Blood Culture - Preliminary Blood - Venous NO GROWTH AFTER 4 DAYS Anaerobic Blood Culture - Preliminary NO GROWTH AFTER 4 DAYS Med Orders - Current: Current Medications Alprazolam (Xanax) 0.25 mg PO Q8H PRN PRN Reason: Anxiety Last Admin: 11/13/17 20:54 Dose: 0.25 mg Carbamazepine (Tegretol Tab) 200 mg PO BID [facility] Last Admin: 11/14/17 08:37 Dose: 200 mg Diphenhydramine HCl (Benadryl) 25 mg PO 2230 [facility] Last Admin: 11/13/17 22:19 Dose: 25 mg Docusate Sodium (Colace) 100 mg PO BID PRN PRN Reason: Constipation Last Admin: 10/27/17 05:59 Dose: 100 mg Multivitamins (Thera) 1 each PO DAILY [facility] Last Admin: 11/14/17 08:37 Dose: 1 each Patients Own (Melatonin 5mg) 0 each BUCCAL BEDTIME PRN PRN Reason: insomnia Last Admin: 11/12/17 22:28 Dose: 5 each Oxycodone/Acetaminophen (Percocet 325-5 Mg) 1 tab PO Q4HR PRN PRN Reason: Pain Last Admin: 11/14/17 07:26 Dose: 1 tab Pantoprazole Sodium (Protonix) 40 mg PO DAILY PRN PRN Reason: Heartburn Sodium Chloride (Saline Flush) 10 ml FLUSH ASDIRECTED PRN PRN Reason: Keep Vein Open Last Admin: 11/13/17 22:21 Dose: 10 ml Sodium Chloride (Saline Flush) 10 ml FLUSH Q12HR [facility] Discontinued Medications Diphenhydramine HCl (Benadryl) 25 mg PO BEDTIME [facility] Last Admin: 10/30/17 22:33 Dose: 25 mg Heparin Sodium (Porcine) (Heparin Sodium) 5,000 units SUBCUT Q8HR [facility] Last Admin: 11/03/17 13:17 Dose: 5,000 units Piperacillin Sod/Tazobactam (Sod 3.375 gm/ Sodium Chloride) 100 mls @ 200 mls/ hr IV Q8HR [facility] Last Admin: 11/14/17 05:24 Dose: Not Given Iopamidol (Isovue-300 (61%)) 100 ml IVPUSH ONETIME ONE Stop: 11/12/17 15:27 Last Admin: 11/12/17 15:55 Dose: 100 ml Oxycodone/Acetaminophen (Percocet 325-5 Mg) 1 tab PO ONETIME ONE Stop: 11/12/17 20:05 Last Admin: 11/12/17 20:17 Dose: 1 tab Melatonin 5 Mg Pt' (s Own Med) 0 each PO BEDTIME [facility] Last Admin: 11/08/17 23:13 Dose: Not Given - Exam General: Alert, Oriented HEENT: Other (r. jaw swelling and tenderness, no erythema) Neck: Supple Lungs: Clear to Auscultation, Normal Respiratory Effort Cardiovascular: Regular Rate, Regular Rhythm Extremities: No Pedal Edema - Problem List & Annotations (1) Fracture, mandible SNOMED Code(s): 230642101 Code(s): S02.609A - FRACTURE OF MANDIBLE, UNSP, INIT ENCNTR FOR CLOSED FRACTURE Status: Acute Current Visit: No (2) Postoperative abscess SNOMED Code(s): 817908040, 313136241 Code(s): T81.4XXA - INFECTION FOLLOWING A PROCEDURE, INITIAL ENCOUNTER Status: Acute Current Visit: No - Problem List Review Problem List Initiated/Reviewed/Updated: Yes - My Orders Last 24 Hours: My Active Orders 11/14/17 07:03 Communication Order [RC] Q12HR 11/14/17 09:00 Sodium Chloride 0.9% [Saline Flush] 10 ml FLUSH Q12HR 11/15/17 05:00 ALANINE AMINOTRANSFERASE,ALT [CHEM] Routine C-REACTIVE PROTEIN [CHEM] Routine CBC WITH AUTO DIFF [HEME] Routine CREATININE W/GFR [CHEM] Routine SEDIMENTATION RATE MANUAL [HEME] Routine - Plan Plan:: The patient is a 46-year-old with a history of seizure disorder, anxiety. The patient presented with injury to the right side of the face. Was diagnosed with a fractured jaw. Underwent multiple surgeries in [place] Continue wound care Postoperative abscess of the right side of the face has been on Zosyn leukopenia and recurrent low grade temp noted concern was possible drug fever followed by id stop zosyn and follow closely History of seizure disorder Treat with carbamazepine Anxiety Treat with Xanax DVT prophylaxis with subcutaneous heparin
[2017-11-14] MEDS: ALPRAZolam 0.25 MG Tab PO PRN ×2 (11:30→22:23)
[2017-11-14] MEDS: Sodium Chloride 0.9% 10 ML Syringe FLUSH PRN (20:34)
[2017-11-14] MEDS: diphenhydrAMINE 25 MG Tab PO SCH (22:23)
[2017-11-14] MEDS: MELATONIN 5 MG BUCCAL PRN (23:59)
[2017-11-15] MEDS: MELATONIN 5 MG BUCCAL PRN
[2017-11-15] MEDS: Multivitamins,Therapeutic Tab PO SCH (08:15)
[2017-11-15] MEDS: carBAMazepine 200 MG Tab PO SCH (08:15)
[2017-11-15] MEDS: Sodium Chloride 0.9% 10 ML Syringe FLUSH PRN (08:16)
[2017-11-15] MEDS: Sodium Chloride 0.9% 10 ML Syringe FLUSH SCH (08:43)
[2017-11-15] MEDS: Acetaminophen/oxyCODONE 325-5 MG Tab PO PRN ×2 (08:43→13:29)
--- NOTE | 2017-11-15 11:01 | PCM.DCSUM1 ---
Discharge Summary - Hospital Course Free Text/Narrative:: The patient is a 46-year-old with a history of seizure disorder, anxiety. The patient presented with injury to the right side of the face. Was diagnosed with a fractured jaw. Underwent multiple surgeries in [place] Postoperative course was complicated with infection. Postoperative abscess of the right side of the face has been on Zosyn leukopenia and recurrent low grade temp noted concern was possible drug fever followed by id - had appointment with Dr. Francois on 15 November Recommendation was to stop zosyn and follow with outpatient IV ertapenem treatment History of seizure disorder Treat with carbamazepine Anxiety Treat with Xanax Diagnosis: Stroke: No - Discharge Data Discharge Date: 11/15/17 Discharge Disposition: Home, Self-Care 01 Condition: Good - Discharge Diagnosis/Problem(s) (1) Fracture, mandible SNOMED Code(s): 928782586 ICD Code: S02.609A - FRACTURE OF MANDIBLE, UNSP, INIT ENCNTR FOR CLOSED FRACTURE Status: Acute Current Visit: No (2) Postoperative abscess SNOMED Code(s): 119570355, 410612600 ICD Code: T81.4XXA - INFECTION FOLLOWING A PROCEDURE, INITIAL ENCOUNTER Status: Acute Current Visit: No - Patient Summary/Data Consults: Consultations 10/25/17 14:02 OT Evaluation and Treatment [CONS] Routine PT Evaluation and Treatment [CONS] Routine - Patient Instructions Diet: Usual Diet as Tolerated Activity: As Tolerated - Discharge Plan *PRESCRIPTION DRUG MONITORING PROGRAM REVIEWED*: Not Applicable *COPY OF PRESCRIPTION DRUG MONITORING REPORT IN PATIENT DIPTI: Not Applicable Prescriptions/Med Rec: Ibuprofen [Motrin] 600 mg PO Q6H PRN #30 tab PRN Reason: Pain Home Medications: Home Meds Multivitamin [Multi-Day Vitamins] 1 tab PO DAILY 10/16/17 [History] carBAMazepine [Carbamazepine] 200 mg PO BID 10/16/17 [History] diphenhydrAMINE HCl [Benadryl] 25 mg PO BEDTIME 10/16/17 [History] Pantoprazole Sodium [Protonix] 40 mg PO DAILY PRN 10/25/17 [History] Ibuprofen [Motrin] 600 mg PO Q6H PRN #30 tab 11/15/17 [Rx] Referrals: Provider,Unknown [Ordering Only Provider] - (follow up with IV Abx daily ) - General Info Date of Service: 11/15/17 - Review of Systems General: Denies: Fever, Weakness HEENT: Reports: Other (Pain in the right lower jaw area) Pulmonary: Denies: Shortness of Breath Cardiovascular: Denies: Chest Pain Gastrointestinal: Denies: Abdominal Pain - Patient Data Vitals - Most Recent: Last Vital Signs Temp 36.6 C 11/15/17 07:46 Pulse 53 L 11/15/17 07:46 Resp 20 11/15/17 07:46 BP 106/64 11/15/17 07:46 Pulse Ox 95 11/15/17 07:46 Weight - Most Recent: 90.265 kg I&O - Last 24 hours: Intake & Output 11/14/17 11/15/17 11/15/17 22:59 06:59 14:59 Intake Total 200 Balance 200 Lab Results - Last 24 hrs: Laboratory Results - last 24 hr 11/15/17 11/15/17 11/15/17 Range/Units 06:03 06:03 06:03 WBC 3.7 L (5.0-10.0) 10^3/uL RBC 4.47 L (4.6-6.2) 10^6/uL Hgb 13.2 L (14.0-18.0) g/dL Hct 40.5 (40.0-54.0) % MCV 90.6 (80-100) fL MCH 29.5 (27.0-34.0) pg MCHC 32.6 L (33.0-35.0) g/dL Plt Count 147 L (150-450) 10^3/uL Neut % (Auto) 41.7 L (42.2-75.2) % Lymph % (Auto) 29.0 (20.5-50.1) % [place] % (Auto) 14.5 H (2-8) % Eos % (Auto) 14.0 H (1.0-3.0) % Baso % (Auto) 0.8 (0.0-1.0) % ESR 10 (0-15) mm/hr Creatinine 0.8 (0.6-1.3) mg/dL Est Cr Clr Drug Dosing 115.38 mL/min Estimated GFR (MDRD) > 60 ALT 40 (10-60) IU/L C-Reactive Protein 6.2 H (0.0-1.3) mg/dL SANDY Results - Last 24 hrs: Microbiology 11/12/17 02:00 Aerobic Blood Culture - Preliminary Blood - Venous - Lab Draw NO GROWTH AFTER 3 DAYS Anaerobic Blood Culture - Preliminary NO GROWTH AFTER 3 DAYS 11/12/17 01:55 Aerobic Blood Culture - Preliminary Blood - Venous NO GROWTH AFTER 3 DAYS Anaerobic Blood Culture - Preliminary NO GROWTH AFTER 3 DAYS 11/09/17 17:09 Aerobic Blood Culture - Final Blood - Venous - Lab Draw NO GROWTH AFTER 5 DAYS Anaerobic Blood Culture - Final NO GROWTH AFTER 5 DAYS 11/09/17 17:06 Aerobic Blood Culture - Final Blood - Venous NO GROWTH AFTER 5 DAYS Anaerobic Blood Culture - Final NO GROWTH AFTER 5 DAYS Med Orders - Current: Current Medications Alprazolam (Xanax) 0.25 mg PO Q8H PRN PRN Reason: Anxiety Last Admin: 11/14/17 22:23 Dose: 0.25 mg Carbamazepine (Tegretol Tab) 200 mg PO BID [facility] Last Admin: 11/15/17 08:15 Dose: 200 mg Diphenhydramine HCl (Benadryl) 25 mg PO 2230 [facility] Last Admin: 11/14/17 22:23 Dose: 25 mg Docusate Sodium (Colace) 100 mg PO BID PRN PRN Reason: Constipation Last Admin: 10/27/17 05:59 Dose: 100 mg Multivitamins (Thera) 1 each PO DAILY [facility] Last Admin: 11/15/17 08:15 Dose: 1 each Patients Own (Melatonin 5mg) 0 each [facility] BEDTIME PRN PRN Reason: insomnia Last Admin: 11/15/17 00:00 Dose: 1 each Oxycodone/Acetaminophen (Percocet 325-5 Mg) 1 tab PO Q4HR PRN PRN Reason: Pain Last Admin: 11/15/17 08:43 Dose: 1 tab Pantoprazole Sodium (Protonix) 40 mg PO DAILY PRN PRN Reason: Heartburn Sodium Chloride (Saline Flush) 10 ml FLUSH ASDIRECTED PRN PRN Reason: Keep Vein Open Last Admin: 11/15/17 08:16 Dose: 10 ml Sodium Chloride (Saline Flush) 10 ml FLUSH Q12HR [facility] Last Admin: 11/15/17 08:43 Dose: 10 ml Discontinued Medications Diphenhydramine HCl (Benadryl) 25 mg PO BEDTIME [facility] Last Admin: 10/30/17 22:33 Dose: 25 mg Heparin Sodium (Porcine) (Heparin Sodium) 5,000 units SUBCUT Q8HR [facility] Last Admin: 11/03/17 13:17 Dose: 5,000 units Piperacillin Sod/Tazobactam (Sod 3.375 gm/ Sodium Chloride) 100 mls @ 200 mls/ hr IV Q8HR [facility] Last Admin: 11/14/17 05:24 Dose: Not Given Iopamidol (Isovue-300 (61%)) 100 ml IVPUSH ONETIME ONE Stop: 11/12/17 15:27 Last Admin: 11/12/17 15:55 Dose: 100 ml Oxycodone/Acetaminophen (Percocet 325-5 Mg) 1 tab PO ONETIME ONE Stop: 11/12/17 20:05 Last Admin: 11/12/17 20:17 Dose: 1 tab Melatonin 5 Mg Pt' (s Own Med) 0 each PO BEDTIME [facility] Last Admin: 11/08/17 23:13 Dose: Not Given - Exam Quality Assessment: Denies: Supplemental Oxygen General: Reports: Alert, Oriented HEENT: Reports: Other (Right jaw swelling and tenderness) Neck: Reports: Supple Lungs: Reports: Clear to Auscultation, Normal Respiratory Effort Cardiovascular: Reports: Regular Rate, Regular Rhythm GI/Abdominal Exam: Normal Bowel Sounds, Soft, Non-Tender Extremities: No Pedal Edema
[2017-11-15] MEDS ORDERED: Non-Formulary Medication 1 Each IVPUSH ONE (12:30)
[2017-11-15] MEDS: ALPRAZolam 0.25 MG Tab PO PRN (13:30)
[2017-11-15] MEDS ORDERED: Ertapenem 1 GM in Sodium Chloride 0.9% 50 ML IV ONE (14:00)
[2017-11-15 14:40] VITALS: BP 115/73
== END 2017-11-15 15:35 | disposition home or self-care (01) | DRG 863 ==
LOC: DL.MS 12:30 → UNDOADMIN 12:30 → DL.MS 14:05 → EEVIPCON 14:05
PROVIDERS: ADMIT Internal Medicine; ATTEND Internal Medicine
DX: T81.4XXA Infection following a procedure, initial encounter (principal); L02.01 Cutaneous abscess of face; G40.909 Epilepsy, unspecified, not intractable, without status epilepticus; F41.9 Anxiety disorder, unspecified; K21.9 Gastro-esophageal reflux disease without esophagitis; Y83.8 Other surgical procedures as the cause of abnormal reaction of the patient, or of later complication, without mention of misadventure at the time of the procedure; R50.2 Drug induced fever; T36.0X5A Adverse effect of penicillins, initial encounter; Y92.230 Patient room in hospital as the place of occurrence of the external cause; H91.92 Unspecified hearing loss, left ear; H54.7 Unspecified visual loss; Z79.899 Other long term (current) drug therapy; Z88.8 Allergy status to other drugs, medicaments and biological substances; Z87.891 Personal history of nicotine dependence; R19.7 Diarrhea, unspecified; S02.609D Fracture of mandible, unspecified, subsequent encounter for fracture with routine healing; Y04.0XXD Assault by unarmed brawl or fight, subsequent encounter; Z98.890 Other specified postprocedural states
CPT/HCPCS: 36415; 70487; 71045; 80048; 80305-QW; 81001; 81003; 82565; 84450; 84460; 85025; 85027; 85651; 86140; 87040; 87493; A9270-GY; J1335; J1644; J2543; J7050; Q9967

== ENCOUNTER 2018-02-28 11:51 | Emergency (ER) | payer MEDICAID ==
--- NOTE | 2018-02-28 11:53 | EDM.PDOC ---
ED HPI GENERAL MEDICAL PROBLEM - General Chief Complaint: Lower Extremity Injury/Pain Stated Complaint: UNKNOWN Time Seen by Provider: 02/28/18 11:53 Source of Information: Reports: Patient, EMS, Old Records, RN, RN Notes Reviewed History Limitations: Reports: Intoxication - History of Present Illness INITIAL COMMENTS - FREE TEXT/NARRATIVE: Pt arrives to ER by ambulance with c/o right ankle pain sustained about 2 hours ago from a ground level fall. Pt is intoxicated and tearful stating that his left him, and admit to heavy recent EtOH consumption for about 2 weeks. He states that he has had 2 seizures today because he is out of his Carbamazepine. Pt was seen here on 02/25/18 for recurrent seizures, but did not fill his Carbamazepine Rx. Onset: Today Duration: Constant Location: Reports: Lower Extremity, Right Quality: Reports: Ache Severity: Severe Improves with: Reports: Immobilization Worsens with: Reports: Movement Context: Reports: Other (Fall) Associated Symptoms: Reports: No Other Symptoms right ankle Pain Score (Numeric/FACES): 10 - Related Data Allergies Allergy/AdvReac Type Severity Reaction Status Date / Time ertapenem Allergy Rash Verified 02/28/18 12:10 fluoxetine Allergy Cannot Verified 02/28/18 12:10 Remember Penicillins Allergy Hives Verified 02/28/18 12:10 Home Meds: Home Meds Multivitamin [Multi-Day Vitamins] 1 tab PO DAILY 10/16/17 [History] carBAMazepine [Carbamazepine] 200 mg PO BID 10/16/17 [History] diphenhydrAMINE HCl [Benadryl] 25 mg PO BEDTIME 10/16/17 [History] Pantoprazole Sodium [Protonix] 40 mg PO DAILY PRN 10/25/17 [History] Ibuprofen [Motrin] 600 mg PO Q6H PRN #30 tab 11/15/17 [Rx] Past Medical History - Past Health History Medical/Surgical History: Denies Medical/Surgical History HEENT History: Reports: Hard of Hearing, Impaired Vision, None 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 Cardiovascular History: Reports: None Respiratory History: Reports: None Gastrointestinal History: Reports: GERD Genitourinary History: Reports: None Other Genitourinary History: increased frequency Musculoskeletal History: Reports: None Neurological History: Reports: Seizure Other Neuro History: alcohol seizures Psychiatric History: Reports: Addiction, Anxiety Endocrine/Metabolic History: Reports: None Hematologic History: Reports: None Immunologic History: Reports: None Oncologic (Cancer) History: Reports: None Dermatologic History: Reports: Cellulitis - Infectious Disease History Infectious Disease History: Reports: MRSA - Past Surgical History Head Surgeries/Procedures: Reports: None Musculoskeletal Surgical History: Reports: Arthroscopic Knee, Shoulder Surgery Social & Family History - Family History Family Medical History: Noncontributory - Caffeine Use Caffeine Use: Reports: None - Alcohol Use Alcohol Use History: Yes Alcohol Use Frequency: Binges - Living Situation & Occupation Living situation: Reports: Occupation: Unemployed Review of Systems - Review of Systems Review Of Systems: ROS reveals no pertinent complaints other than HPI. ED EXAM, GENERAL - Physical Exam Exam: See Below Exam Limited By: Intoxication General Appearance: Alert, No Apparent Distress Eye Exam: Bilateral Eye: EOMI, Nystagmus (lateral gaze), PERRL Ears: Normal External Exam, Normal Canal, Hearing Grossly Normal, Normal TMs Nose: Normal Inspection, Normal Mucosa, No Blood Throat/Mouth: Normal Inspection, Normal Lips, Normal Teeth, Normal Gums, Normal Oropharynx, Normal Voice, No Airway Compromise Head: Normocephalic, Other (forehead with contusion) Neck: Normal Inspection, Supple, Non-Tender, Full Range of Motion Respiratory/Chest: No Respiratory Distress, Lungs Clear, Normal Breath Sounds, No Accessory Muscle Use, Chest Non-Tender Cardiovascular: Regular Rate, Rhythm, Tachycardia Peripheral Pulses: 2+: Posterior Tibial (L), Posterior Tibial (R), 3+: Dorsalis Pedis (L), Dorsalis Pedis (R) GI/Abdominal: Normal Bowel Sounds, Soft, Non-Tender, No Distention Back Exam: Normal Inspection, Full Range of Motion Extremities: No Pedal Edema, Normal Capillary Refill, Joint Swelling (Rt ankle tender to palpation, soft tissue swelling, skin is intact), Limited Range of Motion (Rt ankle). No: Nilton's Sign, Mottled, Pallor, Redness Neurological: Alert, Oriented, CN II-XII Intact, No Motor/Sensory Deficits, Other (intoxicated) Psychiatric: Depressed Mood, Tearful Skin Exam: Warm, Dry, Intact ED TRAUMA EXTREMITY PROCEDURES - Splinting Right Lower Extremity Splint Site: Rt lower leg/ankle Pre-Procedure NV Status: Normal Post-Procedure NV Status: Normal Splint Material: Fiberglass Splint Design: Sugar Tong, Posterior Applied & Form Fitted By: Provider Provider Post-Splint Application NV Check: NV Status Normal, Good Position Complications: No Course - Vital Signs Last Recorded V/S: Last Vital Signs Temp 37.0 C 02/28/18 11:59 Pulse 119 H 02/28/18 12:22 Resp 20 02/28/18 12:22 BP 116/62 02/28/18 12:22 Pulse Ox 94 L 02/28/18 12:22 - Orders/Labs/Meds Labs: Laboratory Tests 02/28/18 02/28/18 Range/Units 12:39 12:39 WBC 9.6 (5.0-10.0) 10^3/uL RBC 4.97 (4.6-6.2) 10^6/uL Hgb 15.9 D (14.0-18.0) g/dL Hct 45.0 (40.0-54.0) % MCV 90.5 (80-100) fL MCH 32.0 (27.0-34.0) pg MCHC 35.3 H (33.0-35.0) g/dL Plt Count 202 (150-450) 10^3/uL Neut % (Auto) 80.2 H (42.2-75.2) % Lymph % (Auto) 12.0 L (20.5-50.1) % [place] % (Auto) 6.8 (2-8) % Eos % (Auto) 0.9 L (1.0-3.0) % Baso % (Auto) 0.1 (0.0-1.0) % Sodium 142 (135-145) mmol/L Potassium 3.4 L (3.6-5.0) mmol/L Chloride 106 (101-111) mmol/L Carbon Dioxide 20.0 L (21.0-31.0) mmol/L Anion Gap 19.4 BUN 8 (7-18) mg/dL Creatinine 0.6 (0.6-1.3) mg/dL Est Cr Clr Drug Dosing 153.84 mL/min Estimated GFR (MDRD) > 60 BUN/Creatinine Ratio 13.33 Glucose 121 H (74-105) mg/dL Calcium 8.2 L (8.4-10.2) mg/dl Total Bilirubin 0.4 (0.2-1.0) mg/dL AST 47 H (10-42) IU/L ALT 57 (10-60) IU/L Alkaline Phosphatase 82 (42-121) IU/L Total Protein 7.3 (6.7-8.2) g/dl Albumin 3.9 (3.2-5.5) g/dl Globulin 3.4 Albumin/Globulin Ratio 1.15 Ethyl Alcohol 288 mg/dL Meds: Medications Discontinued Medications Generic Name Dose Route Start Last Admin Trade Name Freesperanza PRN Reason Stop Dose Admin Carbamazepine 200 mg 02/28/18 12:31 02/28/18 13:06 Tegretol Tab PO 02/28/18 12:32 200 mg ONETIME ONE Administration Multivitamins/Minerals 10 ml/ 1,011.2 mls @ 999 mls/hr 02/28/18 12:30 14:18 Thiamine HCl 100 mg/ Folic IV 02/28/18 13:30 Infused Acid 1 mg/ Lactated Ringer's .BOLUS ONE Infusion Levetiracetam 1,500 mg/ Sodium 115 mls @ 400 mls/hr 02/28/18 12:31 02/28/18 13:10 Chloride IV 02/28/18 12:45 400 mls/hr ONETIME ONE Administration Sodium Chloride 1,000 mls @ 999 mls/hr 02/28/18 14:31 02/28/18 15:58 Normal Saline IV 02/28/18 15:31 Infused .BOLUS ONE Infusion Lorazepam 2 mg 02/28/18 13:51 02/28/18 13:56 Ativan IVPUSH 02/28/18 13:52 2 mg ONETIME ONE Administration Lorazepam 2 mg 02/28/18 14:00 02/28/18 14:05 Ativan IVPUSH 02/28/18 14:01 2 mg ONETIME ONE Administration Lorazepam 2 mg 02/28/18 14:27 02/28/18 14:32 Ativan IVPUSH 02/28/18 14:28 2 mg ONETIME ONE Administration Lorazepam 2 mg 02/28/18 14:55 02/28/18 15:07 Ativan IVPUSH 02/28/18 14:56 2 mg ONETIME ONE Administration Phenobarbital 130 mg 02/28/18 15:15 02/28/18 15:31 Phenobarbital Sodium IVPUSH 02/28/18 15:16 130 mg ONETIME ONE Administration - Radiology Interpretation Free Text/Narrative:: XR Right Ankle: Nondisplaced spiral fracture distal diaphysis of the right fibula and apparent occult nondisplaced transverse fracture line medial malleolus of the distal right tibia, intact ankle mortise per Rad. report. - Re-Assessments/Exams Free Text/Narrative Re-Assessment/Exam: 02/28/18 Transfer of pt delayed due to no ambulance crew available and other transfers out previously today. Pt began to have DT's, auditory and visual hallucinations from alcohol withdrawals while waiting. I considered admitting him here, but Dr. Aguilera refused the admission stating that she is not comfortable treating his withdrawals here. Free Text/Narrative Re-Assessment/Exam: 02/28/18 Phenobarb. 130mg IVP x1 given for severe alcohol withdrawals (not for seizure). Departure - Departure Time of Disposition: 14:45 Disposition: DC/Tfer to Acute Hospital 02 Condition: Serious Clinical Impression: Alcohol withdrawal delirium, acute, hyperactive, Alcohol abuse, Visual hallucinations Epilepsy Qualifiers: Epilepsy type: unspecified Intractability: not intractable Status epilepticus: without status epilepticus Qualified Code(s): G40.909 - Epilepsy, unspecified, not intractable, without status epilepticus Closed fracture of right tibia and fibula Qualifiers: Encounter type: initial encounter Qualified Code(s): S82.201A - Unspecified fracture of shaft of right tibia, initial encounter for closed fracture - Discharge Information *PRESCRIPTION DRUG MONITORING PROGRAM REVIEWED*: Not Applicable *COPY OF PRESCRIPTION DRUG MONITORING REPORT IN PATIENT DIPTI: Not Applicable Referrals: Shanique Alvares PA-C [Primary Care Provider] - Forms: ED Department Discharge, Interfacility Transfer DAVID
--- NOTE | 2018-02-28 12:19 | CR ---
Clinical history: 47-year-old male injured right ankle. Interpretation: 3 views right ankle (air boot) Interpretation: Abnormal. Nondisplaced spiral fracture distal diaphysis of the right fibula and apparent occult nondisplaced transverse fracture line medial malleolus of the distal right tibia. No sign of other ankle fracture appreciated through the air splint (foreign body). No disruption of the tibiotalar mortise joint symmetry. Talus and os calcis unremarkable.
[2018-02-28 12:23] VITALS: BP 116/62
[2018-02-28] MEDS ORDERED: MVI, Adult with Vitamin K 10 ML, Thiamine 100 MG, Folic Acid 1 MG in Lactated Ringers 1... IV ONE ×4 (12:30)
[2018-02-28] MEDS ORDERED: carBAMazepine 200 MG Tab PO ONE (12:31)
[2018-02-28] MEDS ORDERED: levETIRAcetam 1,500 MG in Sodium Chloride 0.9% 100 ML IV ONE (12:31)
[2018-02-28 13:06] LABS: ANION GAP 19.4; CHLORIDE,CL 106 mmol/L (101-111); SODIUM,NA 142 mmol/L (135-145)
[2018-02-28] MEDS ORDERED: LORazepam 2 MG/ML Syringe IVPUSH ONE ×4 (13:51→14:55)
[2018-02-28] MEDS ORDERED: Sodium Chloride 0.9% 1,000 ML IV ONE (14:31)
[2018-02-28] MEDS ORDERED: PHENobarbital Sodium 65 MG/ML SDV IVPUSH ONE (15:15)
== END 2018-02-28 16:47 ==
LOC: DL.ED 11:51
DX: S82.54XA Nondisplaced fracture of medial malleolus of right tibia, initial encounter for closed fracture (principal); S82.444A Nondisplaced spiral fracture of shaft of right fibula, initial encounter for closed fracture; K21.9 Gastro-esophageal reflux disease without esophagitis; F10.231 Alcohol dependence with withdrawal delirium; G40.909 Epilepsy, unspecified, not intractable, without status epilepticus; R44.1 Visual hallucinations; Z88.8 Allergy status to other drugs, medicaments and biological substances; Z88.0 Allergy status to penicillin; Z79.899 Other long term (current) drug therapy; W18.30XA Fall on same level, unspecified, initial encounter; Y90.8 Blood alcohol level of 240 mg/100 ml or more
CPT/HCPCS: 29515; 36415; 73610; 80053; 85025; 96365; 96375; 96376; 99285; A9270; G0480; J1953; J2060; J2560; J3411; J7030; J7050; J7120; J3490

== ENCOUNTER 2018-08-05 11:04 | Emergency (ER) | payer MEDICAID ==
[2018-08-05] MEDS ORDERED: Sodium Chloride 0.9% 10 ML Syringe FLUSH PRN (11:07)
[2018-08-05] MEDS ORDERED: Ondansetron 4 MG/2 ML SDV IV ONE ×2 (11:08→11:35)
[2018-08-05] MEDS ORDERED: MVI, Adult with Vitamin K 10 ML, Thiamine 100 MG, Folic Acid 1 MG in Lactated Ringers 1... IV ONE ×4 (11:08)
[2018-08-05] MEDS ORDERED: Pantoprazole 40 MG Vial IVPUSH ONE (11:09)
[2018-08-05] MEDS ORDERED: Octreotide 100 MCG/ML SDV IVPUSH ONE (11:15)
[2018-08-05] MEDS ORDERED: Octreotide 500 MCG in Sodium Chloride 0.9% 250 ML IV SCH (11:15)
[2018-08-05] MEDS ORDERED: Pantoprazole 40 MG in Sodium Chloride 0.9% 100 ML IV SCH (11:15)
[2018-08-05] MEDS ORDERED: Sodium Chloride 0.9% 1,000 ML IV ONE (11:17)
--- NOTE | 2018-08-05 11:23 | EDM.PDOC ---
<Joselyn Devries - Last Filed: 08/05/18 12:04> ED HPI GENERAL MEDICAL PROBLEM - General Chief Complaint: Abdominal Pain Stated Complaint: AMBULANCE Time Seen by Provider: 08/05/18 11:10 Source of Information: Reports: Patient, EMS History Limitations: Reports: No Limitations - History of Present Illness INITIAL COMMENTS - FREE TEXT/NARRATIVE: Patient presents to ER with CC of blood in vomit and stool that began last night. Patient has active emesis that is dark brown in color. Patient has a generalized tenderness to his abdomen. Patient is alert & orientated x4. Patient VSS, tachycardic at 142. Patient reports that he drinks "liters" of hard alcohol per day, including last night. Patient reports that he has had similar experiences of this in the past, but is unable to remember what they have done for him, does report having received blood transfusions in the past. Patient also states that he has had an endoscopy done before and was diagnosed with "stomach ulcers". Patient denies any NSAID use as these "will make his ulcers bleed". Patient reports chest pain "when (he) pukes". Denies SOB, fever, chills, or recent illness. Right Abdominal Pain Score (Numeric/FACES): 9 - Related Data Allergies Allergy/AdvReac Type Severity Reaction Status Date / Time ertapenem Allergy Rash Verified 02/28/18 12:10 fluoxetine Allergy Cannot Verified 02/28/18 12:10 Remember Penicillins Allergy Hives Verified 02/28/18 12:10 Home Meds: Home Meds Multivitamin [Multi-Day Vitamins] 1 tab PO DAILY 10/16/17 [History] carBAMazepine [Carbamazepine] 200 mg PO BID 10/16/17 [History] diphenhydrAMINE HCl [Benadryl] 25 mg PO BEDTIME 10/16/17 [History] Pantoprazole Sodium [Protonix] 40 mg PO DAILY PRN 10/25/17 [History] Ibuprofen [Motrin] 600 mg PO Q6H PRN #30 tab 11/15/17 [Rx] Past Medical History - Past Health History Medical/Surgical History: Denies Medical/Surgical History HEENT History: Reports: Hard of Hearing, Impaired Vision, None 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 Cardiovascular History: Reports: None Respiratory History: Reports: None Gastrointestinal History: Reports: GERD Genitourinary History: Reports: None Other Genitourinary History: increased frequency Musculoskeletal History: Reports: None Neurological History: Reports: Seizure Other Neuro History: alcohol seizures Psychiatric History: Reports: Addiction, Anxiety Endocrine/Metabolic History: Reports: None Hematologic History: Reports: None Immunologic History: Reports: None Oncologic (Cancer) History: Reports: None Dermatologic History: Reports: Cellulitis - Infectious Disease History Infectious Disease History: Reports: MRSA - Past Surgical History Head Surgeries/Procedures: Reports: None Musculoskeletal Surgical History: Reports: Arthroscopic Knee, Shoulder Surgery Social & Family History - Family History Family Medical History: Noncontributory - Tobacco Use Smoking Status *Q: Current Every Day Smoker Years of Tobacco use: 25 Packs/Tins Daily: 1 - Caffeine Use Caffeine Use: Reports: Coffee, Soda - Alcohol Use Days Per Week of Alcohol Use: 7 Number of Drinks Per Day: 12 Total Drinks Per Week: 84 - Recreational Drug Use Recreational Drug Use: No - Living Situation & Occupation Living situation: Reports: Occupation: Unemployed ED ROS GENERAL - Review of Systems Review Of Systems: ROS reveals no pertinent complaints other than HPI. ED EXAM, GI/ABD - Physical Exam Exam: See Below Exam Limited By: No Limitations General Appearance: Alert, WD/WN, No Apparent Distress Ears: Normal External Exam, Normal Canal, Hearing Grossly Normal, Normal TMs Nose: Normal Inspection, Normal Mucosa, No Blood Throat/Mouth: Normal Lips, Normal Oropharynx, Normal Voice, No Airway Compromise. No: Normal Inspection (active hemoptysis ), Normal Teeth (missing teeth) Head: Atraumatic, Normocephalic Neck: Normal Inspection, Supple, Non-Tender, Full Range of Motion Respiratory/Chest: No Respiratory Distress, Lungs Clear, Normal Breath Sounds, No Accessory Muscle Use, Chest Non-Tender Cardiovascular: Normal Peripheral Pulses, Regular Rate, Rhythm, No Edema, No Gallop, No JVD, No Murmur, No Rub GI/Abdominal Exam: Normal Bowel Sounds, Soft, No Distention, No Abnormal Bruit, No Mass, Tender (generalized tenderness to all abdominal quadrants ) Back Exam: Normal Inspection, Full Range of Motion, NT Extremities: Normal Inspection, Normal Range of Motion, Non-Tender, Normal Capillary Refill, No Pedal Edema Neurological: Alert, Oriented, CN II-XII Intact, Normal Cognition, Normal Gait, Normal Reflexes, No Motor/Sensory Deficits Psychiatric: Anxious Skin Exam: Warm, Dry, Intact, Normal Color, No Rash EKG INTERPRETATION EKG Date: 08/05/18 Time: 11:15 Rhythm: Other (Sinus tachycardia) Hood: Normal P-Wave: Present QRS: Normal ST-T: Normal QT: Normal Comparison: No Change Course - Vital Signs Last Recorded V/S: Last Vital Signs Temp 97.5 F 08/05/18 11:15 Pulse 140 H 08/05/18 11:15 Resp 18 08/05/18 11:15 BP 113/81 08/05/18 11:15 Pulse Ox 97 08/05/18 11:15 - Orders/Labs/Meds Orders: Active Orders 24 hr Category Date Time Status EKG 12 Lead [EKG Documentation Completion] [RC] STAT Care 08/05/18 11:07 Active Peripheral IV Care [RC] . DIRECTED Care 08/05/18 11:07 Active DRUG SCREEN URINE BIORAD [URCHEM] Stat Lab 08/05/18 11:07 Ordered Guiac, Stool [OCCULT BLOOD DIAGNOSTIC] [OP] Stat Lab 08/05/18 11:30 Ordered UA RFX SANDY AND CULT IF INDIC [URIN] Stat Lab 08/05/18 11:07 Ordered MVI, Adult with Vitamin K [Infuvite Adult] 10 ml Med 08/05/18 11:08 Active Thiamine [Vitamin B-1] 100 mg Folic Acid 1 mg Lactated Ringers [Ringers, Lactated] 1,000 ml IV .BOLUS Octreotide [SandoSTATIN] 500 mcg Med 08/05/18 11:15 Active Sodium Chloride 0.9% [Normal Saline] 250 ml IV ASDIRECTED Pantoprazole [ProTONIX IV] 40 mg Med 08/05/18 11:15 Active Sodium Chloride 0.9% [Normal Saline] 100 ml IV .CONTINUOS Sodium Chloride 0.9% [Normal Saline] 1,000 ml Med 08/05/18 11:17 Active IV .BOLUS Sodium Chloride 0.9% [Saline Flush] Med 08/05/18 11:07 Active 10 ml FLUSH ASDIRECTED PRN Peripheral IV Insertion Adult [OM.PC] Stat Oth 08/05/18 11:07 Ordered Medication Orders Multivitamins/Minerals 10 ml/Thiamine HCl 100 mg/ Folic Acid 1 mg/ Lactated Ringer's 1,011.2 mls @ 999 mls/hr IV .BOLUS ONE Stop: 08/05/18 12:08 Last Admin: 08/05/18 11:27 Dose: 999 mls/hr Pantoprazole Sodium 40 mg/ (Sodium Chloride) 100 mls @ 20 mls/hr IV .CONTINUOS DAYANARA Last Admin: 08/05/18 11:35 Dose: 20 mls/hr Octreotide Acetate 500 mcg/ (Sodium Chloride) 255 mls @ 12.5 mls/hr IV ASDIRECTED DAYANARA Last Admin: 08/05/18 11:41 Dose: 12.5 mls/hr Sodium Chloride (Normal Saline) 1,000 mls @ 999 mls/hr IV .BOLUS ONE Stop: 08/05/18 12:17 Last Admin: 08/05/18 11:30 Dose: 999 mls/hr Sodium Chloride (Saline Flush) 10 ml FLUSH ASDIRECTED PRN PRN Reason: Keep Vein Open Last Admin: 08/05/18 11:20 Dose: 10 ml Labs: Laboratory Tests 08/05/18 08/05/18 08/05/18 Range/Units 11:09 11:09 11:09 WBC 17.9 H (5.0-10.0) 10^3/uL RBC 3.99 L (4.6-6.2) 10^6/uL Hgb 12.9 L D (14.0-18.0) g/dL Hct 36.5 L (40.0-54.0) % MCV 91.5 (80-100) fL MCH 32.3 (27.0-34.0) pg MCHC 35.3 H (33.0-35.0) g/dL Plt Count 359 D (150-450) 10^3/uL Neut % (Auto) 86.3 H (42.2-75.2) % Lymph % (Auto) 9.5 L (20.5-50.1) % [place] % (Auto) 3.9 (2-8) % Eos % (Auto) 0.1 L (1.0-3.0) % Baso % (Auto) 0.2 (0.0-1.0) % PT 10.3 (9.0-12.0) SEC INR 1.0 (0.9-1.2) APTT 21.2 L (22.0-34.0) SEC Sodium 139 (135-145) mmol/L Potassium 3.5 L (3.6-5.0) mmol/L Chloride 104 (101-111) mmol/L Carbon Dioxide 13.0 L (21.0-31.0) mmol/L Anion Gap 25.5 BUN 17 (7-18) mg/dL Creatinine 0.8 (0.6-1.3) mg/dL Est Cr Clr Drug Dosing TNP Estimated GFR (MDRD) > 60 BUN/Creatinine Ratio 21.25 Glucose 181 H (74-105) mg/dL Calcium 7.4 L (8.4-10.2) mg/dl Magnesium 2.0 (1.8-2.5) mg/dL Total Bilirubin 0.6 (0.2-1.0) mg/dL AST 27 (10-42) IU/L ALT 33 (10-60) IU/L Alkaline Phosphatase 61 (42-121) IU/L Troponin I < 0.02 (0.00-0.02) ng/ml Total Protein 5.8 L (6.7-8.2) g/dl Albumin 3.3 (3.2-5.5) g/dl Globulin 2.5 Albumin/Globulin Ratio 1.32 Amylase 30 (28-100) U/L Lipase 28 (22-51) U/L Ethyl Alcohol 250 mg/dL Meds: Medications Generic Name Dose Route Start Last Admin Trade Name Freq PRN Reason Stop Dose Admin Multivitamins/Minerals 10 ml/ 1,011.2 mls @ 999 mls/hr 08/05/18 11:08 11:27 Thiamine HCl 100 mg/ Folic IV 08/05/18 12:08 999 mls/hr Acid 1 mg/ Lactated Ringer's .BOLUS ONE Administration Pantoprazole Sodium 40 mg/ 100 mls @ 20 mls/hr 08/05/18 11:15 08/05/18 11:35 Sodium Chloride IV 20 mls/hr .CONTINUOS DAYANARA Administration Octreotide Acetate 500 mcg/ 255 mls @ 12.5 mls/hr 08/05/18 11:15 08/05/18 11: 41 Sodium Chloride IV 12.5 mls/hr ASDIRECTED DAYANARA Administration Sodium Chloride 1,000 mls @ 999 mls/hr 08/05/18 11:17 08/05/18 11:30 Normal Saline IV 08/05/18 12:17 999 mls/hr .BOLUS ONE Administration Sodium Chloride 10 ml 08/05/18 11:07 08/05/18 11:20 Saline Flush FLUSH 10 ml ASDIRECTED PRN Administration Keep Vein Open Discontinued Medications Generic Name Dose Route Start Last Admin Trade Name Freq PRN Reason Stop Dose Admin Lorazepam 1 mg 08/05/18 11:35 08/05/18 11:46 Ativan IVPUSH 08/05/18 11:36 1 mg ONETIME ONE Administration Octreotide Acetate 50 mcg 08/05/18 11:15 08/05/18 11:31 Sandostatin IVPUSH 08/05/18 11:16 50 mcg ONETIME ONE Administration Ondansetron HCl 4 mg 08/05/18 11:08 08/05/18 11:19 Zofran IV 08/05/18 11:09 4 mg ONETIME ONE Administration Ondansetron HCl 4 mg 08/05/18 11:35 08/05/18 11:44 Zofran IV 08/05/18 11:36 4 mg ONETIME ONE Administration Pantoprazole Sodium 80 mg 08/05/18 11:09 08/05/18 11:19 Protonix Iv IVPUSH 08/05/18 11:10 80 mg .BOLUS ONE Administration Departure - Departure Disposition: DC/Tfer to [facility] 02 Clinical Impression: Upper gastrointestinal bleed, Alcohol abuse Acute alcohol intoxication Qualifiers: Complication of substance-induced condition: with unspecified complication Qualified Code(s): F10.929 - Alcohol use, unspecified with intoxication, unspecified - Discharge Information Forms: ED Department Discharge, Interfacility Transfer EMTALA - My Orders Last 24 Hours: My Active Orders 08/05/18 11:07 EKG 12 Lead [EKG Documentation Completion] [RC] STAT Peripheral IV Care [RC] . DIRECTED DRUG SCREEN URINE BIORAD [URCHEM] Stat UA RFX SANDY AND CULT IF INDIC [URIN] Stat Sodium Chloride 0.9% [Saline Flush] 10 ml FLUSH ASDIRECTED PRN Peripheral IV Insertion Adult [OM.PC] Stat 08/05/18 11:08 MVI, Adult with Vitamin K [Infuvite Adult] 10 ml Thiamine [Vitamin B-1] 100 mg Folic Acid 1 mg Lactated Ringers [Ringers, Lactated] 1,000 ml IV .BOLUS 08/05/18 11:15 Octreotide [SandoSTATIN] 500 mcg Sodium Chloride 0.9% [Normal Saline] 250 ml IV ASDIRECTED Pantoprazole [ProTONIX IV] 40 mg Sodium Chloride 0.9% [Normal Saline] 100 ml IV .CONTINUOS 08/05/18 11:17 Sodium Chloride 0.9% [Normal Saline] 1,000 ml IV .BOLUS 08/05/18 11:30 Guiac, Stool [OCCULT BLOOD DIAGNOSTIC] [OP] Stat - Assessment/Plan Last 24 Hours: My Active Orders 08/05/18 11:07 EKG 12 Lead [EKG Documentation Completion] [RC] STAT Peripheral IV Care [RC] . DIRECTED DRUG SCREEN URINE BIORAD [URCHEM] Stat UA RFX SANDY AND CULT IF INDIC [URIN] Stat Sodium Chloride 0.9% [Saline Flush] 10 ml FLUSH ASDIRECTED PRN Peripheral IV Insertion Adult [OM.PC] Stat 08/05/18 11:08 MVI, Adult with Vitamin K [Infuvite Adult] 10 ml Thiamine [Vitamin B-1] 100 mg Folic Acid 1 mg Lactated Ringers [Ringers, Lactated] 1,000 ml IV .BOLUS 08/05/18 11:15 Octreotide [SandoSTATIN] 500 mcg Sodium Chloride 0.9% [Normal Saline] 250 ml IV ASDIRECTED Pantoprazole [ProTONIX IV] 40 mg Sodium Chloride 0.9% [Normal Saline] 100 ml IV .CONTINUOS 08/05/18 11:17 Sodium Chloride 0.9% [Normal Saline] 1,000 ml IV .BOLUS 08/05/18 11:30 Guiac, Stool [OCCULT BLOOD DIAGNOSTIC] [OP] Stat <Brando Jacob - Last Filed: 08/05/18 12:07> ED HPI GENERAL MEDICAL PROBLEM - General Source of Information: Reports: Patient, EMS, Old Records, RN, RN Notes Reviewed History Limitations: Reports: No Limitations - History of Present Illness Onset: Today Duration: Constant Location: Reports: Abdomen Quality: Reports: Ache, Burning Severity: Moderate Improves with: Reports: None Worsens with: Reports: None Associated Symptoms: Reports: No Other Symptoms Past Medical History Gastrointestinal History: Reports: GI Bleed, PUD Social & Family History - Alcohol Use Date of Last Drink: 08/04/18 Time of Last Drink: 22:00 Alcohol Use Frequency: Daily - Living Situation & Occupation Living situation: Reports: , with Family Occupation: Unemployed Course - Re-Assessments/Exams Free Text/Narrative Re-Assessment/Exam: 08/05/18 12:03 I personally performed or re-performed the physical examination and medical decision making. I have verified all student documentation or findings, including history, physical exam and/or medical decision making. Departure - Departure Time of Disposition: 12:03 Condition: Critical - Discharge Information *PRESCRIPTION DRUG MONITORING PROGRAM REVIEWED*: No *COPY OF PRESCRIPTION DRUG MONITORING REPORT IN PATIENT DIPTI: No
[2018-08-05] MEDS ORDERED: LORazepam 2 MG/ML Syringe IVPUSH ONE (11:35)
[2018-08-05 11:39] LABS: ANION GAP 25.5; CHLORIDE,CL 104 mmol/L (101-111); SODIUM,NA 139 mmol/L (135-145)
[2018-08-05 11:52] VITALS: BP 113/81
== END 2018-08-05 12:40 ==
LOC: DL.ED 11:04
DX: K92.2 Gastrointestinal hemorrhage, unspecified (principal); F10.229 Alcohol dependence with intoxication, unspecified; K21.9 Gastro-esophageal reflux disease without esophagitis; F17.210 Nicotine dependence, cigarettes, uncomplicated; Z79.899 Other long term (current) drug therapy; Z88.0 Allergy status to penicillin; Z88.8 Allergy status to other drugs, medicaments and biological substances; Y90.8 Blood alcohol level of 240 mg/100 ml or more
CPT/HCPCS: 36415; 80053; 82150; 82271; 82272; 83690; 83735; 84484; 85025; 85610; 85730; 93005; 96365; 96368; 96375; 96376; 99285; C9113; G0480; J2060; J2354; J2405; J3411; J7030; J7050; J7120; J3490

== ENCOUNTER 2019-02-25 16:31 | Emergency (ER) | payer MEDICAID ==
[2019-02-25] MEDS ORDERED: LORazepam 1 MG Tab PO ONE (16:32)
[2019-02-25] MEDS ORDERED: Promethazine 25 MG Tab PO ONE (16:32)
[2019-02-25 16:48] VITALS: BP 142/94; PULSE 124
[2019-02-25] MEDS ORDERED: Sodium Chloride 0.9% 10 ML Syringe FLUSH PRN (17:21)
[2019-02-25] MEDS ORDERED: MVI, Adult with Vitamin K 10 ML, Thiamine 100 MG, Folic Acid 1 MG in Lactated Ringers 1... IV ONE ×4 (17:22)
[2019-02-25] MEDS ORDERED: Ondansetron 4 MG/2 ML SDV IV ONE ×2 (17:22→19:17)
[2019-02-25] MEDS ORDERED: LORazepam 2 MG/ML Syringe IVPUSH ONE ×2 (17:22→19:17)
[2019-02-25] MEDS ORDERED: Octreotide 100 MCG/ML SDV IVPUSH ONE (17:23)
[2019-02-25] MEDS ORDERED: Pantoprazole 40 MG Vial IVPUSH ONE (17:23)
[2019-02-25] MEDS ORDERED: Folic Acid 50 MG/10 ML MDV ONE (17:29)
[2019-02-25 18:01] LABS: ANION GAP 17.6; CHLORIDE,CL 99 mmol/L (101-111); SODIUM,NA 136 mmol/L (135-145)
[2019-02-25] MEDS ORDERED: LORazepam 1 MG Tab ONE (19:21)
[2019-02-25] MEDS ORDERED: Promethazine 25 MG Tab ONE (19:21)
--- NOTE | 2019-02-25 19:23 | EDM.PDOC ---
Scribed by Ivonne Canchola 02/25/19 [id number] for Brando Jacob MD ED HPI GENERAL MEDICAL PROBLEM - General Chief Complaint: Abdominal Pain Stated Complaint: PUKING/ALCOHAL WITHDRAWAL Time Seen by Provider: 02/25/19 17:00 Source of Information: Reports: Patient, RN, RN Notes Reviewed History Limitations: Reports: No Limitations - History of Present Illness INITIAL COMMENTS - FREE TEXT/NARRATIVE: Patient presents to ER with abdominal pain, nausea, and vomiting after drinking homemade liquor for 4 days. Patient states he has had vomiting since yesterday. Last drank yesterday. Pt states he took a nap this morning and woke up with sweats, and tremor consistent with past withdrawals. Pt reports Hx of esophageal varices. Onset Date: 02/24/19 Duration: Getting Worse Location: Reports: Abdomen Severity: Moderate Improves with: Reports: None Worsens with: Reports: None Associated Symptoms: Reports: No Other Symptoms Upper Epigastric Pain Score (Numeric/FACES): 6 - Related Data Allergies Allergy/AdvReac Type Severity Reaction Status Date / Time ertapenem Allergy Rash Verified 02/25/19 16:49 fluoxetine Allergy Cannot Verified 02/25/19 16:49 Remember Penicillins Allergy Hives Verified 02/25/19 16:49 Home Meds: Home Meds Multivitamin [Multi-Day Vitamins] 1 tab PO DAILY 10/16/17 [History] carBAMazepine [Carbamazepine] 200 mg PO BID 10/16/17 [History] diphenhydrAMINE HCl [Benadryl] 25 mg PO BEDTIME 10/16/17 [History] Melatonin 5 mg PO DAILY 10/05/18 [History] Past Medical History - Past Health History Medical/Surgical History: Denies Medical/Surgical History HEENT History: Reports: Hard of Hearing, Impaired Vision, None 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 Cardiovascular History: Reports: None Respiratory History: Reports: None Gastrointestinal History: Reports: GI Bleed, PUD Genitourinary History: Reports: None Other Genitourinary History: increased frequency Musculoskeletal History: Reports: None Neurological History: Reports: Seizure Other Neuro History: alcohol seizures Psychiatric History: Reports: Addiction, Anxiety Endocrine/Metabolic History: Reports: None Hematologic History: Reports: None Immunologic History: Reports: None Oncologic (Cancer) History: Reports: None Dermatologic History: Reports: Cellulitis - Infectious Disease History Infectious Disease History: Reports: MRSA - Past Surgical History Head Surgeries/Procedures: Reports: None Musculoskeletal Surgical History: Reports: Arthroscopic Knee, Shoulder Surgery Social & Family History - Family History Family Medical History: Noncontributory - Caffeine Use Caffeine Use: Reports: Coffee, Soda - Living Situation & Occupation Living situation: Reports: , with Family Occupation: Unemployed ED ROS GENERAL - Review of Systems Review Of Systems: Comprehensive ROS is negative, except as noted in HPI. ED EXAM, GI/ABD - Physical Exam Exam: See Below Exam Limited By: No Limitations General Appearance: Alert, WD/WN, No Apparent Distress Eyes: Bilateral: Normal Appearance Ears: Normal External Exam, Normal Canal, Hearing Grossly Normal, Normal TMs Nose: Normal Inspection, Normal Mucosa, No Blood Throat/Mouth: Normal Inspection, Normal Lips, Normal Teeth, Normal Gums, Normal Oropharynx, Normal Voice, No Airway Compromise Head: Atraumatic, Normocephalic Neck: Normal Inspection, Supple, Non-Tender, Full Range of Motion Respiratory/Chest: No Respiratory Distress, Lungs Clear, Normal Breath Sounds, No Accessory Muscle Use, Chest Non-Tender Cardiovascular: Normal Peripheral Pulses, Regular Rate, Rhythm, No Edema, No Gallop, No JVD, No Murmur, No Rub GI/Abdominal Exam: Normal Bowel Sounds, Soft, Non-Tender, No Organomegaly, No Distention, No Abnormal Bruit, No Mass, Pelvis Stable, Other (epigastric pain) (Male) Exam: Deferred Rectal (Males) Exam: Deferred Back Exam: Normal Inspection, Full Range of Motion, NT Extremities: Normal Inspection, Normal Range of Motion, Non-Tender, Normal Capillary Refill, No Pedal Edema Neurological: Alert, Oriented, CN II-XII Intact, Normal Cognition, Normal Gait, Normal Reflexes, No Motor/Sensory Deficits, Other (generalized tremor consistent with suspected alcohol withdrawal.) Psychiatric: Normal Affect, Normal Mood Skin Exam: Warm, Dry, Intact, Normal Color, No Rash Course - Vital Signs Last Recorded V/S: Last Vital Signs Temp 97.2 F 02/25/19 16:43 Pulse 124 H 02/25/19 16:43 Resp 18 02/25/19 16:43 BP 142/94 H 02/25/19 16:43 Pulse Ox 98 02/25/19 16:43 - Orders/Labs/Meds Orders: Active Orders 24 hr Category Date Time Status Peripheral IV Care [RC] . DIRECTED Care 02/25/19 17:22 Active DRUG SCREEN URINE BIORAD [URCHEM] Stat Lab 02/25/19 17:21 Ordered UA RFX SANDY AND CULT IF INDIC [URIN] Stat Lab 02/25/19 17:21 Ordered Sodium Chloride 0.9% [Saline Flush] Med 02/25/19 17:21 Active 10 ml FLUSH ASDIRECTED PRN Peripheral IV Insertion Adult [OM.PC] Stat Oth 02/25/19 17:21 Ordered Medication Orders Sodium Chloride (Saline Flush) 10 ml FLUSH ASDIRECTED PRN PRN Reason: Keep Vein Open Labs: Laboratory Tests 02/25/19 02/25/19 02/25/19 Range/Units 17:30 17:30 17:30 WBC 6.4 (5.0-10.0) 10^3/uL RBC 4.78 (4.6-6.2) 10^6/uL Hgb 15.1 D (14.0-18.0) g/dL Hct 42.0 (40.0-54.0) % MCV 87.9 D (80-100) fL MCH 31.6 (27.0-34.0) pg MCHC 36.0 H (33.0-35.0) g/dL Plt Count 276 (150-450) 10^3/uL Neut % (Auto) 74.6 (42.2-75.2) % Lymph % (Auto) 18.7 L (20.5-50.1) % [place] % (Auto) 5.7 (2-8) % Eos % (Auto) 0.5 L (1.0-3.0) % Baso % (Auto) 0.5 (0.0-1.0) % PT 10.0 (9.0-12.0) SEC INR 1.0 (0.9-1.2) APTT 25.2 (22.0-34.0) SEC Sodium 136 (135-145) mmol/L Potassium 3.6 (3.6-5.0) mmol/L Chloride 99 L (101-111) mmol/L Carbon Dioxide 23.0 (21.0-31.0) mmol/L Anion Gap 17.6 BUN 16 (7-18) mg/dL Creatinine 0.8 (0.6-1.3) mg/dL Est Cr Clr Drug Dosing 114.15 mL/min Estimated GFR (MDRD) > 60 BUN/Creatinine Ratio 20.00 Glucose 105 (74-105) mg/dL Calcium 8.6 (8.4-10.2) mg/dl Total Bilirubin 0.7 (0.2-1.0) mg/dL AST 35 (10-42) IU/L ALT 50 (10-60) IU/L Alkaline Phosphatase 83 (42-121) IU/L Total Protein 6.8 (6.7-8.2) g/dl Albumin 3.9 (3.2-5.5) g/dl Globulin 2.9 Albumin/Globulin Ratio 1.34 Amylase 34 (28-100) U/L Lipase 26 (22-51) U/L Ethyl Alcohol < 5 mg/dL Meds: Medications Generic Name Dose Route Start Last Admin Trade Name Freq PRN Reason Stop Dose Admin Sodium Chloride 10 ml 02/25/19 17:21 Saline Flush FLUSH ASDIRECTED PRN Keep Vein Open Discontinued Medications Generic Name Dose Route Start Last Admin Trade Name Freq PRN Reason Stop Dose Admin Folic Acid Confirm 02/25/19 17:29 Folic Acid Administered 02/25/19 17:30 Dose 50 mg .ROUTE .STK-MED ONE Multivitamins/Minerals 10 ml/ 1,011.2 mls @ 999 mls/hr 02/25/19 17:22 18:06 Thiamine HCl 100 mg/ Folic IV 02/25/19 18:22 999 mls/hr Acid 1 mg/ Lactated Ringer's .BOLUS ONE Administration Lorazepam 2 mg 02/25/19 17:22 02/25/19 18:09 Ativan IVPUSH 02/25/19 17:23 2 mg ONETIME ONE Administration Lorazepam 1 mg 02/25/19 19:17 Ativan IVPUSH 02/25/19 19:18 ONETIME ONE Octreotide Acetate 50 mcg 02/25/19 17:23 02/25/19 18:09 Sandostatin IVPUSH 02/25/19 17:24 50 mcg ONETIME ONE Administration Ondansetron HCl 4 mg 02/25/19 17:22 02/25/19 18:06 Zofran IV 02/25/19 17:23 4 mg ONETIME ONE Administration Ondansetron HCl 4 mg 02/25/19 19:17 Zofran IV 02/25/19 19:18 ONETIME ONE Pantoprazole Sodium 80 mg 02/25/19 17:23 02/25/19 18:10 Protonix Iv IVPUSH 02/25/19 17:24 80 mg .BOLUS ONE Administration - Re-Assessments/Exams Free Text/Narrative Re-Assessment/Exam: 02/25/19 19:21 Pt refuses admission or transfer. Departure - Departure Time of Disposition: 19:21 Disposition: Home, Self-Care 01 Condition: Fair Clinical Impression: Alcohol abuse Alcohol withdrawal syndrome Qualifiers: Complication of substance-induced condition: uncomplicated Qualified Code(s): F10.230 - Alcohol dependence with withdrawal, uncomplicated - Discharge Information *PRESCRIPTION DRUG MONITORING PROGRAM REVIEWED*: No *COPY OF PRESCRIPTION DRUG MONITORING REPORT IN PATIENT DIPTI: No Instructions: Alcohol Withdrawal Syndrome, Alcohol Use Disorder Forms: ED Department Discharge Additional Instructions: Rx: Zofran 4mg Rx: Lorazepam 1mg Abstain from alcohol consumption. Return to ER if worse at any time. Sepsis Event Note - Evaluation Sepsis Screening Result: No Definite Risk - Focused Exam Vital Signs: Vital Signs Temp Pulse Resp BP Pulse Ox 02/25/19 16:43 97.2 F 124 H 18 142/94 H 98 Date Exam was Performed: 02/25/19 Time Exam was Performed: 19:20 - My Orders Last 24 Hours: My Active Orders 02/25/19 17:21 DRUG SCREEN URINE BIORAD [URCHEM] Stat UA RFX SANDY AND CULT IF INDIC [URIN] Stat Sodium Chloride 0.9% [Saline Flush] 10 ml FLUSH ASDIRECTED PRN Peripheral IV Insertion Adult [OM.PC] Stat 02/25/19 17:22 Peripheral IV Care [RC] . DIRECTED - Assessment/Plan Last 24 Hours: My Active Orders 02/25/19 17:21 DRUG SCREEN URINE BIORAD [URCHEM] Stat UA RFX SANDY AND CULT IF INDIC [URIN] Stat Sodium Chloride 0.9% [Saline Flush] 10 ml FLUSH ASDIRECTED PRN Peripheral IV Insertion Adult [OM.PC] Stat 02/25/19 17:22 Peripheral IV Care [RC] . DIRECTED I have read and agree with the documentation that has been completed regarding this visit. By signing this record, I attest that the documentation was completed in my physical presence and is an accurate record of the encounter.
== END 2019-02-25 19:30 | disposition home or self-care (01) ==
LOC: DL.ED 16:31
DX: F10.230 Alcohol dependence with withdrawal, uncomplicated (principal); Y90.0 Blood alcohol level of less than 20 mg/100 ml; Z88.8 Allergy status to other drugs, medicaments and biological substances; Z88.0 Allergy status to penicillin; Z79.899 Other long term (current) drug therapy
CPT/HCPCS: 36415; 80053; 80320; 82150; 83690; 85025; 85610; 85730; 96365; 96375; 99284; A9270; C9113; J2060; J2354; J2405; J3411; J7120; G0480; J3490

== ENCOUNTER 2019-02-27 21:34 | Emergency (ER) | payer MEDICAID ==
[2019-02-27] MEDS ORDERED: LORazepam 1 MG Tab PO ONE (21:35)
[2019-02-27 21:40] VITALS: BP 135/82; PULSE 77
[2019-02-27] MEDS ORDERED: MVI, Adult with Vitamin K 10 ML, Folic Acid 1 MG, Thiamine 100 MG in Lactated Ringers 1... IV ONE ×4 (21:49)
[2019-02-27] MEDS ORDERED: LORazepam 2 MG/ML Syringe IVPUSH ONE (22:19)
[2019-02-27] MEDS ORDERED: carBAMazepine 200 MG Tab PO ONE (22:20)
--- NOTE | 2019-02-27 22:31 | EDM.PDOC ---
ED HPI GENERAL MEDICAL PROBLEM - General Chief Complaint: Behavioral/Psych Stated Complaint: GENERAL, AMBULANCE Time Seen by Provider: 02/27/19 21:45 Source of Information: Reports: Patient History Limitations: Reports: No Limitations - History of Present Illness INITIAL COMMENTS - FREE TEXT/NARRATIVE: ED via [facility] with report of anxiety, having seizure at home, seeing things and withdrawing from alcohol Last drink 4-5 days prior, "a lot" of homemade vodka and whisky. Hx of withdrwal seizures in past. Underlying seizure disorder. Out of seizure medications.. Denied drug use. Has not been sleeping. InED on 02/25 and given Rx for 18 Lorazepam and has been out today. Left Upper Abdomen Pain Score (Numeric/FACES): 7 - Related Data Allergies Allergy/AdvReac Type Severity Reaction Status Date / Time ertapenem Allergy Rash Verified 02/27/19 21:34 fluoxetine Allergy Cannot Verified 02/27/19 21:34 Remember Penicillins Allergy Hives Verified 02/27/19 21:34 Home Meds: Home Meds Multivitamin [Multi-Day Vitamins] 1 tab PO DAILY 10/16/17 [History] carBAMazepine [Carbamazepine] 200 mg PO BID 10/16/17 [History] diphenhydrAMINE HCl [Benadryl] 25 mg PO BEDTIME 10/16/17 [History] CIWAA - CIWAA CIWAA Nausea And Vomitin - No Nausea and No Vomiting CIWAA Tremor: 0 - No Tremor CIWAA Paroxysmal Sweats: 0 - No Sweat Visible CIWAA Anxiety: 1 - Mildly Anxious CIWAA Agitation: 4 - Moderately Fidgety and Restless CIWAA Tactile Disturbances: 2 - Mild Itching, Pins and [place], Burning or Numbness CIWAA Auditory Disturbances: 1 - Very Mild Harshness or Ability to Frighten CIWAA Visual Disturbances: 2 - Mild Sensitivity CIWAA Headache, Fullness in Head: 0 - Not Present CIWAA Orientation And Clouding Of Sensorium: 0 - Oriented and Can do Serial Additions CIWAA Scale Score: 10 Past Medical History - Past Health History Medical/Surgical History: Denies Medical/Surgical History HEENT History: Reports: Hard of Hearing, Impaired Vision, None 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 Cardiovascular History: Reports: None Respiratory History: Reports: None Gastrointestinal History: Reports: GI Bleed, PUD Genitourinary History: Reports: None Other Genitourinary History: increased frequency Musculoskeletal History: Reports: None Neurological History: Reports: Seizure Other Neuro History: alcohol seizures Psychiatric History: Reports: Addiction, Anxiety Endocrine/Metabolic History: Reports: None Hematologic History: Reports: None Immunologic History: Reports: None Oncologic (Cancer) History: Reports: None Dermatologic History: Reports: Cellulitis - Infectious Disease History Infectious Disease History: Reports: MRSA - Past Surgical History Head Surgeries/Procedures: Reports: None Musculoskeletal Surgical History: Reports: Arthroscopic Knee, Shoulder Surgery Social & Family History - Family History Family Medical History: Noncontributory - Tobacco Use Smoking Status *Q: Current Every Day Smoker Years of Tobacco use: 20 Packs/Tins Daily: 1 - Caffeine Use Caffeine Use: Reports: Energy Drinks, Soda - Recreational Drug Use Recreational Drug Use: No - Living Situation & Occupation Living situation: Reports: , with Family Occupation: Unemployed ED ROS GENERAL - Review of Systems Review Of Systems: Comprehensive ROS is negative, except as noted in HPI. - Physical Exam Exam: See Below Exam Limited By: No Limitations General Appearance: Alert, Anxious Eye Exam: Bilateral Eye: EOMI Ears: Normal External Exam Nose: Normal Inspection, Normal Mucosa Head Exam: Atraumatic, Normocephalic Neck: Normal Inspection, Supple, Full Range of Motion Respiratory/Chest: Lungs Clear, Normal Breath Sounds Cardiovascular: Normal Peripheral Pulses, Regular Rate, Rhythm GI/Abdominal: Normal Bowel Sounds, Soft, Non-Tender Neuro Exam (Abbreviated): Alert, Oriented, Normal Cognition, No Motor/Sensory Deficits Back Exam: Full Range of Motion Psychiatric: Anxious (at times, light dozing when staff absent from room, when staff present report seeing thing and moves head with appearance of following object but does not appear startled.) Skin Exam: Warm, Dry, Intact, Normal Color Course - Vital Signs Last Recorded V/S: Last Vital Signs Temp 98 F 02/27/19 21:36 Pulse 77 02/27/19 21:36 Resp 16 02/27/19 21:36 BP 135/82 02/27/19 21:36 Pulse Ox 96 02/27/19 21:36 - Orders/Labs/Meds Labs: Laboratory Tests 02/27/19 02/27/19 02/27/19 Range/Units 21:49 22:06 22:06 WBC (5.0-10.0) 10^3/uL RBC (4.6-6.2) 10^6/uL Hgb (14.0-18.0) g/dL Hct (40.0-54.0) % MCV (80-100) fL MCH (27.0-34.0) pg MCHC (33.0-35.0) g/dL Plt Count (150-450) 10^3/uL Neut % (Auto) (42.2-75.2) % Lymph % (Auto) (20.5-50.1) % [place] % (Auto) (2-8) % Eos % (Auto) (1.0-3.0) % Baso % (Auto) (0.0-1.0) % Sodium (135-145) mmol/L Potassium (3.6-5.0) mmol/L Chloride (101-111) mmol/L Carbon Dioxide (21.0-31.0) mmol/L Anion Gap BUN (7-18) mg/dL Creatinine (0.6-1.3) mg/dL Est Cr Clr Drug Dosing mL/min Estimated GFR (MDRD) BUN/Creatinine Ratio Glucose (74-105) mg/dL Calcium (8.4-10.2) mg/dl Total Bilirubin (0.2-1.0) mg/dL AST (10-42) IU/L ALT (10-60) IU/L Alkaline Phosphatase (42-121) IU/L Ammonia (11-35) umol/L Total Protein (6.7-8.2) g/dl Albumin (3.2-5.5) g/dl Globulin Albumin/Globulin Ratio Amylase (28-100) U/L Lipase (22-51) U/L Urine Color Cancelled Yellow Urine Appearance Cancelled Slightly cloudy Urine pH Cancelled 7.0 Ur Specific [place] Cancelled 1.020 Urine Protein Cancelled Negative Urine Glucose (UA) Cancelled Negative Urine Ketones Cancelled Negative Urine Occult Blood Cancelled Trace-intact H Urine Nitrite Cancelled Negative Urine Bilirubin Cancelled Negative Urine Urobilinogen Cancelled 0.2 Ur Leukocyte Esterase Cancelled Negative Urine RBC Cancelled 0-5 Urine WBC Cancelled Not seen Ur Epithelial Cells Cancelled Rare Calcium Phosphate Cryst Cancelled Calcium Oxalate Crystal Cancelled Uric Acid Crystals Cancelled Triple Phos Crystals Cancelled Other Crystals Cancelled Amorphous Sediment Cancelled Few Urine Bacteria Cancelled Rare Hyaline Casts Cancelled Granular Casts Cancelled Fine Granular Casts Cancelled Coarse Granular Casts Cancelled Urine Mucus Cancelled Few H Urine Other Cancelled Urine Trichomonas Cancelled Urine Yeast Cancelled Urinalysis Comment Cancelled Urine Opiates Screen Negative (NEGATIVE) Ur Oxycodone Screen Positive H (NEGATIVE) Urine Methadone Screen Negative (NEGATIVE) Ur Barbiturates Screen Negative (NEGATIVE) U Tricyclic Antidepress Negative (NEGATIVE) Ur Phencyclidine Scrn Negative (NEGATIVE) Ur Amphetamine Screen Negative (NEGATIVE) U Methamphetamines Scrn Negative (NEGATIVE) Urine MDMA Screen Negative (NEGATIVE) U Benzodiazepines Scrn Positive H (NEGATIVE) Urine Cocaine Screen Negative (NEGATIVE) U Marijuana (THC) Screen Negative (NEGATIVE) Ethyl Alcohol mg/dL 02/27/19 02/27/19 02/27/19 Range/Units 22:11 22:11 22:11 WBC 5.7 (5.0-10.0) 10^3/uL RBC 4.26 L (4.6-6.2) 10^6/uL Hgb 13.3 L D (14.0-18.0) g/dL Hct 38.9 L (40.0-54.0) % MCV 91.3 D (80-100) fL MCH 31.2 (27.0-34.0) pg MCHC 34.2 (33.0-35.0) g/dL Plt Count 221 (150-450) 10^3/uL Neut % (Auto) 70.5 (42.2-75.2) % Lymph % (Auto) 20.9 (20.5-50.1) % [place] % (Auto) 6.7 (2-8) % Eos % (Auto) 1.4 (1.0-3.0) % Baso % (Auto) 0.5 (0.0-1.0) % Sodium 135 (135-145) mmol/L Potassium 3.8 (3.6-5.0) mmol/L Chloride 102 (101-111) mmol/L Carbon Dioxide 23.0 (21.0-31.0) mmol/L Anion Gap 13.8 BUN 22 H (7-18) mg/dL Creatinine 0.8 (0.6-1.3) mg/dL Est Cr Clr Drug Dosing 116.01 mL/min Estimated GFR (MDRD) > 60 BUN/Creatinine Ratio 27.50 Glucose 98 (74-105) mg/dL Calcium 8.1 L (8.4-10.2) mg/dl Total Bilirubin 0.4 (0.2-1.0) mg/dL AST 30 (10-42) IU/L ALT 43 (10-60) IU/L Alkaline Phosphatase 78 (42-121) IU/L Ammonia 29 (11-35) umol/L Total Protein 6.2 L (6.7-8.2) g/dl Albumin 3.6 (3.2-5.5) g/dl Globulin 2.6 Albumin/Globulin Ratio 1.38 Amylase 40 (28-100) U/L Lipase 34 (22-51) U/L Urine Color Urine Appearance Urine pH Ur Specific [place] Urine Protein Urine Glucose (UA) Urine Ketones Urine Occult Blood Urine Nitrite Urine Bilirubin Urine Urobilinogen Ur Leukocyte Esterase Urine RBC Urine WBC Ur Epithelial Cells Calcium Phosphate Cryst Calcium Oxalate Crystal Uric Acid Crystals Triple Phos Crystals Other Crystals Amorphous Sediment Urine Bacteria Hyaline Casts Granular Casts Fine Granular Casts Coarse Granular Casts Urine Mucus Urine Other Urine Trichomonas Urine Yeast Urinalysis Comment Urine Opiates Screen (NEGATIVE) Ur Oxycodone Screen (NEGATIVE) Urine Methadone Screen (NEGATIVE) Ur Barbiturates Screen (NEGATIVE) U Tricyclic Antidepress (NEGATIVE) Ur Phencyclidine Scrn (NEGATIVE) Ur Amphetamine Screen (NEGATIVE) U Methamphetamines Scrn (NEGATIVE) Urine MDMA Screen (NEGATIVE) U Benzodiazepines Scrn (NEGATIVE) Urine Cocaine Screen (NEGATIVE) U Marijuana (THC) Screen (NEGATIVE) Ethyl Alcohol < 5 mg/dL Meds: Medications Discontinued Medications Generic Name Dose Route Start Last Admin Trade Name Freq PRN Reason Stop Dose Admin Carbamazepine 200 mg 02/27/19 22:20 02/27/19 22:28 Tegretol Tab PO 02/27/19 22:21 200 mg ONETIME ONE Administration Famotidine 20 mg 02/27/19 22:55 02/27/19 23:09 Pepcid IVPUSH 02/27/19 22:56 20 mg ONETIME ONE Administration Multivitamins/Minerals 10 ml/ 1,011.2 mls @ 999 mls/hr 02/27/19 21:49 21:54 Folic Acid 1 mg/ Thiamine HCl IV 02/27/19 22:49 999 mls/hr 100 mg/ Lactated Ringer's ONETIME ONE Administration Lorazepam 1 mg 02/27/19 22:19 02/27/19 22:28 Ativan IVPUSH 02/27/19 22:20 1 mg ONETIME ONE Administration Lorazepam Confirm 02/27/19 23:56 Ativan Administered 02/27/19 23:57 Dose 2 mg .ROUTE .STK-MED ONE Departure - Departure Time of Disposition: 00:05 Disposition: Home, Self-Care 01 Condition: Good Clinical Impression: Hallucinations, Non compliance w medication regimen Alcohol withdrawal Qualifiers: Complication of substance-induced condition: with perceptual disturbance Qualified Code(s): F10.232 - Alcohol dependence with withdrawal with perceptual disturbance Alcoholic gastritis Qualifiers: Chronicity: acute Gastritis bleeding: without bleeding Qualified Code(s): K29.20 - Alcoholic gastritis without bleeding - Discharge Information *PRESCRIPTION DRUG MONITORING PROGRAM REVIEWED*: Yes *COPY OF PRESCRIPTION DRUG MONITORING REPORT IN PATIENT DIPTI: No Instructions: Gastritis, Adult, [place], Alcohol Withdrawal Syndrome Referrals: PCP,Unobtain [Primary Care Provider] - Forms: ED Department Discharge Additional Instructions: stop drinking alcohol take seizure medication as prescribed get medication refilled bland diet avoid smoking caffeine and spicy food ativan 1mg one every 6 hours as needed #2 Sepsis Event Note - Evaluation Sepsis Screening Result: No Definite Risk - Focused Exam Date Exam was Performed: 03/01/19 Time Exam was Performed: 05:31
[2019-02-27 22:38] LABS: ANION GAP 13.8; CHLORIDE,CL 102 mmol/L (101-111); SODIUM,NA 135 mmol/L (135-145)
[2019-02-27] MEDS ORDERED: Famotidine 20 MG/2 ML SDV IVPUSH ONE (22:55)
[2019-02-27] MEDS ORDERED: LORazepam 1 MG Tab ONE (23:56)
== END 2019-02-28 00:06 | disposition home or self-care (01) ==
LOC: DL.ED 21:34
DX: F10.232 Alcohol dependence with withdrawal with perceptual disturbance (principal); K29.20 Alcoholic gastritis without bleeding; R44.3 Hallucinations, unspecified; Z91.14 Patient's other noncompliance with medication regimen; G40.909 Epilepsy, unspecified, not intractable, without status epilepticus; F41.9 Anxiety disorder, unspecified; F17.210 Nicotine dependence, cigarettes, uncomplicated; Z88.0 Allergy status to penicillin; Z88.8 Allergy status to other drugs, medicaments and biological substances
CPT/HCPCS: 36415; 80053; 80305; 80320; 81001; 82140; 82150; 83690; 85025; 96365; 96375; 99285; A9270; J2060; J3411; J3490; J7120; G0480

== ENCOUNTER 2019-04-01 02:15 | Emergency (ER) | payer MEDICAID ==
[~2019-04-01 02:15] MED LIST: Sodium Chloride 0.9% 10 ML Syringe FLUSH PRN
[2019-04-01] MEDS ORDERED: Lactated Ringers 1,000 ML IV ONE (02:24)
[2019-04-01] MEDS ORDERED: Pantoprazole 40 MG Vial IVPUSH ONE (02:24)
[2019-04-01] MEDS ORDERED: Octreotide 100 MCG/ML SDV IVPUSH ONE (02:24)
[2019-04-01] MEDS ORDERED: Octreotide 100 MCG in Sodium Chloride 0.9% 99 ML IV ONE (02:29)
[2019-04-01] MEDS ORDERED: Octreotide 100 MCG in Sodium Chloride 0.9% 99 ML IV SCH (02:30)
[2019-04-01] MEDS ORDERED: LORazepam 2 MG/ML SDV IVPUSH ONE (02:30)
--- NOTE | 2019-04-01 02:32 | EDM.PDOC ---
ED HPI GENERAL MEDICAL PROBLEM - General Chief Complaint: Gastrointestinal Problem Stated Complaint: AMBULANCE Time Seen by Provider: 04/01/19 02:20 Source of Information: Reports: Patient, EMS, EMS Notes Reviewed, RN, RN Notes Reviewed History Limitations: Reports: No Limitations - History of Present Illness INITIAL COMMENTS - FREE TEXT/NARRATIVE: patient to ER per SLA S with complaint of vomiting coffee ground emesis since the afternoon of 03/31/19. States he also has had very dark tarry stools also beginning on 03/31/19. He states he's only had 1 bowel movement, but "a couple" emesis. Patient states he has been drinking straight whiskey since Saturday. States last drink was Saturday morning. Patient states he has history of esophageal varices as well as alcohol withdrawal. Patient states he has had seizures with alcohol withdrawal in the past. Patient is on antiseizure medication, which he states he took at 7:00 Saturday morning. Patient admits to auditory and visual hallucinations since last evening, headache, sweats, tremor. Patient states he feels very anxious. Patient complains of abdominal pain which he rates an 8/10. Onset: Today, Sudden Abdomen Pain Score (Numeric/FACES): 8 - Related Data Allergies Allergy/AdvReac Type Severity Reaction Status Date / Time ertapenem Allergy Rash Verified 02/27/19 21:34 fluoxetine Allergy Cannot Verified 02/27/19 21:34 Remember Penicillins Allergy Hives Verified 02/27/19 21:34 Home Meds: Home Meds Multivitamin [Multi-Day Vitamins] 1 tab PO DAILY 10/16/17 [History] carBAMazepine [Carbamazepine] 200 mg PO BID 10/16/17 [History] diphenhydrAMINE HCl [Benadryl] 25 mg PO BEDTIME 10/16/17 [History] Past Medical History - Past Health History Medical/Surgical History: Denies Medical/Surgical History HEENT History: Reports: Hard of Hearing, Impaired Vision, None 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 Cardiovascular History: Reports: None Respiratory History: Reports: None Gastrointestinal History: Reports: GI Bleed, PUD Genitourinary History: Reports: None Other Genitourinary History: increased frequency Musculoskeletal History: Reports: None Neurological History: Reports: Seizure Other Neuro History: alcohol seizures Psychiatric History: Reports: Addiction, Anxiety Endocrine/Metabolic History: Reports: None Hematologic History: Reports: None Immunologic History: Reports: None Oncologic (Cancer) History: Reports: None Dermatologic History: Reports: Cellulitis - Infectious Disease History Infectious Disease History: Reports: MRSA - Past Surgical History Head Surgeries/Procedures: Reports: None Musculoskeletal Surgical History: Reports: Arthroscopic Knee, Shoulder Surgery Social & Family History - Family History Family Medical History: Noncontributory - Caffeine Use Caffeine Use: Reports: Energy Drinks, Soda - Living Situation & Occupation Living situation: Reports: , with Family Occupation: Unemployed ED ROS GENERAL - Review of Systems Review Of Systems: Comprehensive ROS is negative, except as noted in HPI. ED EXAM, GI/ABD - Physical Exam Exam: See Below Exam Limited By: No Limitations General Appearance: Alert, WD/WN, Anxious, Moderate Distress Eyes: Bilateral: Normal Appearance, EOMI Ears: Normal External Exam, Hearing Grossly Normal Nose: Normal Inspection Throat/Mouth: Normal Voice, No Airway Compromise. No: Normal Teeth Head: Atraumatic, Normocephalic Neck: Normal Inspection, Supple, Non-Tender, Full Range of Motion Respiratory/Chest: No Respiratory Distress, Lungs Clear, Normal Breath Sounds, No Accessory Muscle Use, Chest Non-Tender Cardiovascular: Normal Peripheral Pulses, Regular Rate, Rhythm, No Edema, No Gallop, No JVD, No Murmur, No Rub GI/Abdominal Exam: Normal Bowel Sounds, Soft, No Organomegaly, No Distention, No Abnormal Bruit, No Mass, Pelvis Stable, Tender (Male) Exam: Deferred Rectal (Males) Exam: Black Stool, Heme + Stool Back Exam: Normal Inspection, Full Range of Motion, NT Extremities: Normal Inspection, Normal Range of Motion, Non-Tender, Normal Capillary Refill, No Pedal Edema Neurological: Alert, Oriented, CN II-XII Intact, Normal Cognition, Normal Gait, Normal Reflexes, No Motor/Sensory Deficits Psychiatric: Anxious Skin Exam: Warm, Dry, Intact, Normal Color, No Rash Lymphatic: No Adenopathy Course - Vital Signs Last Recorded V/S: Last Vital Signs Temp 99.4 F 04/01/19 02:29 Pulse 133 H 04/01/19 02:29 Resp 20 04/01/19 02:29 BP 154/105 H 04/01/19 02:29 Pulse Ox 97 04/01/19 02:29 - Orders/Labs/Meds Orders: Active Orders 24 hr Category Date Time Status EKG Documentation Completion [RC] STAT Care 04/01/19 02:10 Active Peripheral IV Care [RC] . DIRECTED Care 04/01/19 02:12 Active Peripheral IV Insertion Adult [OM.PC] Stat Oth 04/01/19 02:10 Ordered Labs: Laboratory Tests 04/01/19 04/01/19 04/01/19 Range/Units 02:35 02:35 02:35 WBC 8.7 (5.0-10.0) 10^3/uL RBC 4.28 L (4.6-6.2) 10^6/uL Hgb 13.9 L (14.0-18.0) g/dL Hct 38.8 L (40.0-54.0) % MCV 90.7 (80-100) fL MCH 32.5 (27.0-34.0) pg MCHC 35.8 H (33.0-35.0) g/dL Plt Count 300 D (150-450) 10^3/uL Neut % (Auto) 62.1 (42.2-75.2) % Lymph % (Auto) 28.6 (20.5-50.1) % [place] % (Auto) 8.8 H (2-8) % Eos % (Auto) 0.2 L (1.0-3.0) % Baso % (Auto) 0.3 (0.0-1.0) % Sodium 137 (135-145) mmol/L Potassium 3.3 L (3.6-5.0) mmol/L Chloride 102 (101-111) mmol/L Carbon Dioxide 19.0 L (21.0-31.0) mmol/L Anion Gap 19.3 BUN 20 H (7-18) mg/dL Creatinine 0.7 (0.6-1.3) mg/dL Est Cr Clr Drug Dosing 130.46 mL/min Estimated GFR (MDRD) > 60 BUN/Creatinine Ratio 28.57 Glucose 117 H (74-105) mg/dL Calcium 8.1 L (8.4-10.2) mg/dl Total Bilirubin 0.5 (0.2-1.0) mg/dL AST 41 (10-42) IU/L ALT 72 H (10-60) IU/L Alkaline Phosphatase 72 (42-121) IU/L Total Protein 5.9 L (6.7-8.2) g/dl Albumin 3.2 (3.2-5.5) g/dl Globulin 2.7 Albumin/Globulin Ratio 1.19 Ethyl Alcohol 98 mg/dL Blood Type O POSITIVE Gel Antibody Screen Negative Crossmatch See Detail Meds: Medications Discontinued Medications Generic Name Dose Route Start Last Admin Trade Name Freq PRN Reason Stop Dose Admin Lactated Ringer's 1,000 mls @ 999 mls/hr 04/01/19 02:24 04/01/19 02:38 Ringers, Lactated IV 04/01/19 03:24 999 mls/hr .BOLUS ONE Administration Octreotide Acetate 100 mcg/ 100 mls @ 50 mls/hr 04/01/19 02:30 Sodium Chloride IV Q10H DAYANARA Octreotide Acetate 100 mcg/ 100 mls @ 50 mls/hr 04/01/19 02:29 04/01/19 02:42 Sodium Chloride IV 04/01/19 04:28 50 mls/hr ONETIME ONE Administration Sodium Chloride 1,000 mls @ 150 mls/hr 04/01/19 03:21 04/01/19 03:23 Normal Saline IV 04/01/19 10:00 150 mls/hr .BOLUS ONE Administration Lorazepam 2 mg 04/01/19 02:30 04/01/19 02:38 Ativan IVPUSH 04/01/19 02:31 2 mg ONETIME ONE Administration Octreotide Acetate 100 mcg 04/01/19 02:24 04/01/19 02:39 Sandostatin IVPUSH 04/01/19 02:25 100 mcg ONETIME ONE Administration Pantoprazole Sodium 80 mg 04/01/19 02:24 04/01/19 02:38 Protonix Iv IVPUSH 04/01/19 02:25 80 mg .BOLUS ONE Administration Sodium Chloride 10 ml 04/01/19 02:11 04/01/19 02:39 Saline Flush FLUSH 10 ml ASDIRECTED PRN Administration Keep Vein Open - Re-Assessments/Exams Free Text/Narrative Re-Assessment/Exam: 04/01/19 04:53 Discussed patient case with Dr. Gonzalez who agreed to accept the patient for transfer to [facility]. Departure - Departure Time of Disposition: 03:14 Disposition: DC/Tfer to Acute Hospital 02 Condition: Fair, Serious Clinical Impression: Alcohol abuse, Alcohol withdrawal delirium, Auditory hallucinations, Visual hallucinations GI bleed Qualifiers: GI bleed type/associated pathology: melena Qualified Code(s): K92.1 - Melena - Discharge Information *PRESCRIPTION DRUG MONITORING PROGRAM REVIEWED*: No *COPY OF PRESCRIPTION DRUG MONITORING REPORT IN PATIENT DIPTI: No Referrals: Shanique Alvares PA-C [Primary Care Provider] - Forms: ED Department Discharge, Interfacility Transfer EMTALA Sepsis Event Note - Focused Exam Vital Signs: Vital Signs Temp Pulse Resp BP Pulse Ox 04/01/19 02:29 99.4 F 133 H 20 154/105 H 97 Date Exam was Performed: 04/01/19 Time Exam was Performed: 04:53 - My Orders Last 24 Hours: My Active Orders 04/01/19 02:10 EKG Documentation Completion [RC] STAT Peripheral IV Insertion Adult [OM.PC] Stat 04/01/19 02:12 Peripheral IV Care [RC] . DIRECTED - Assessment/Plan Last 24 Hours: My Active Orders 04/01/19 02:10 EKG Documentation Completion [RC] STAT Peripheral IV Insertion Adult [OM.PC] Stat 04/01/19 02:12 Peripheral IV Care [RC] . DIRECTED CIWAA - CIWAA CIWAA Nausea And Vomitin - Constant Nausea, Frequent Dry Heaves and Vomiting CIWAA Tremor: 4 - Moderate, with Patient's Arms Extended CIWAA Paroxysmal Sweats: 3 CIWAA Anxiety: 6 CIWAA Agitation: 6 CIWAA Tactile Disturbances: 2 - Mild Itching, Pins and [place], Burning or Numbness CIWAA Auditory Disturbances: 1 - Very Mild Harshness or Ability to Frighten CIWAA Visual Disturbances: 1 - Very Mild Sensitivity CIWAA Headache, Fullness in Head: 5 - Severe CIWAA Orientation And Clouding Of Sensorium: 1 - Cannot do Serial Additions or is Uncertain About Date CIWAA Scale Score: 36
[2019-04-01 02:36] VITALS: BP 154/105; PULSE 133
[2019-04-01 03:01] LABS: ANION GAP 19.3; CHLORIDE,CL 102 mmol/L (101-111); SODIUM,NA 137 mmol/L (135-145)
[2019-04-01] MEDS ORDERED: Sodium Chloride 0.9% 1,000 ML IV ONE (03:21)
== END 2019-04-01 03:50 ==
LOC: DL.ED 02:15
DX: F10.231 Alcohol dependence with withdrawal delirium (principal); K92.1 Melena; R44.0 Auditory hallucinations; R44.1 Visual hallucinations; G40.909 Epilepsy, unspecified, not intractable, without status epilepticus; Z88.8 Allergy status to other drugs, medicaments and biological substances; Z88.0 Allergy status to penicillin; Z79.899 Other long term (current) drug therapy; Y90.4 Blood alcohol level of 80-99 mg/100 ml
CPT/HCPCS: 36415; 80053; 80320; 82272; 85025; 86850; 86900; 86901; 86920; 86922; 93005; 96365; 96375; 96376; 99285; C9113; J2060; J2354; J7030; J7050; J7120; G0480

== ENCOUNTER 2019-05-02 15:54 | Emergency (ER) | payer MEDICAID ==
[2019-05-02] MEDS ORDERED: LORazepam 1 MG Tab PO ONE (15:55)
[2019-05-02] MEDS ORDERED: LORazepam 2 MG/ML SDV IVPUSH ONE (16:03)
[2019-05-02] MEDS ORDERED: MVI, Adult with Vitamin K 10 ML, Folic Acid 1 MG, Thiamine 100 MG in Lactated Ringers 1... IV ONE ×4 (16:11)
[2019-05-02 16:13] VITALS: BP 143/76; PULSE 97
[2019-05-02] MEDS ORDERED: Ondansetron 4 MG/2 ML SDV IVPUSH ONE (16:14)
[2019-05-02] MEDS ORDERED: Pantoprazole 80 MG in Sodium Chloride 0.9% 100 ML IV ONE (16:14)
[2019-05-02 16:56] LABS: ANION GAP 13.5; CHLORIDE,CL 104 mmol/L (101-111); SODIUM,NA 137 mmol/L (135-145)
[2019-05-02] MEDS ORDERED: LORazepam 1 MG Tab ONE (18:43)
--- NOTE | 2019-05-07 20:51 | EDM.PDOCBH ---
Scribed by Ivonne Canchola 05/02/19 [id number] for Tere Conner PA-C ED HPI GENERAL MEDICAL PROBLEM - General Chief Complaint: Drug or Alcohol Abuse Stated Complaint: AMBULANCE Time Seen by Provider: 05/02/19 16:55 Source of Information: Reports: Patient, RN, RN Notes Reviewed History Limitations: Reports: No Limitations - History of Present Illness INITIAL COMMENTS - FREE TEXT/NARRATIVE: Patient presents to ER by [facility]. Patient states he started drinking on Saturday A.M. and continued through Saturday. He now complains of epigastric pain, coffee ground emesis and the shakes. Denies other drug use. Onset: Today Duration: Getting Worse Location: Reports: Generalized Quality: Reports: Other (shaking) Severity: Moderate Improves with: Reports: None Worsens with: Reports: None Associated Symptoms: Reports: No Other Symptoms Generalized Pain Score (Numeric/FACES): 8 - Related Data Allergies Allergy/AdvReac Type Severity Reaction Status Date / Time ertapenem Allergy Rash Verified 02/27/19 21:34 fluoxetine Allergy Cannot Verified 02/27/19 21:34 Remember Penicillins Allergy Hives Verified 02/27/19 21:34 Home Meds: Home Meds Multivitamin [Multi-Day Vitamins] 1 tab PO DAILY 10/16/17 [History] carBAMazepine [Carbamazepine] 200 mg PO BID 10/16/17 [History] diphenhydrAMINE HCl [Benadryl] 25 mg PO BEDTIME 10/16/17 [History] Past Medical History - Past Health History Medical/Surgical History: Denies Medical/Surgical History HEENT History: Reports: Hard of Hearing, Impaired Vision, None 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 Cardiovascular History: Reports: None Respiratory History: Reports: None Gastrointestinal History: Reports: GI Bleed, PUD Other Gastrointestinal History: Esophageal Varaces Genitourinary History: Reports: None Other Genitourinary History: increased frequency Musculoskeletal History: Reports: None Neurological History: Reports: Seizure Other Neuro History: alcohol seizures Psychiatric History: Reports: Addiction, Anxiety Endocrine/Metabolic History: Reports: None Hematologic History: Reports: None Immunologic History: Reports: None Oncologic (Cancer) History: Reports: None Dermatologic History: Reports: Cellulitis - Infectious Disease History Infectious Disease History: Reports: MRSA - Past Surgical History Head Surgeries/Procedures: Reports: None Musculoskeletal Surgical History: Reports: Arthroscopic Knee, Shoulder Surgery Social & Family History - Family History Family Medical History: Noncontributory - Tobacco Use Smoking Status *Q: Current Every Day Smoker Years of Tobacco use: 20 Packs/Tins Daily: 0.5 - Caffeine Use Caffeine Use: Reports: Coffee, Energy Drinks - Alcohol Use Date of Last Drink: 05/01/19 Time of Last Drink: 09:00 - Recreational Drug Use Recreational Drug Use: No - Living Situation & Occupation Living situation: Reports: , with Family Occupation: Unemployed ED ROS GENERAL - Review of Systems Review Of Systems: Comprehensive ROS is negative, except as noted in HPI. ED EXAM, BEHAVIORAL HEALTH - Physical Exam Exam: See Below Exam Limited By: No Limitations General Appearance: Alert, Anxious Eye Exam: Bilateral Eye: EOMI Ears: Normal External Exam Nose: Normal Inspection Throat/Mouth: Normal Inspection Head: Atraumatic, Normocephalic Neck: Normal Inspection, Full Range of Motion Respiratory/Chest: No Respiratory Distress, Lungs Clear, Normal Breath Sounds Cardiovascular: Normal Peripheral Pulses, Regular Rate, Rhythm GI/Abdominal: Normal Bowel Sounds, Soft, Tender (Epigastric) Extremities: Normal Inspection Neurological: Alert, Normal Cognition, Normal Reflexes, Oriented x 3 Psychiatric: Restless Skin Exam: Warm, Dry, Intact, Normal color COURSE, BEHAVIORAL HEALTH COMP - Course Vital Signs: Last Vital Signs Temp 97.2 F 05/02/19 16:03 Pulse 97 05/02/19 16:03 Resp 16 05/02/19 16:03 BP 143/76 H 05/02/19 16:03 Pulse Ox 100 05/02/19 16:03 Orders, Labs, Meds: Laboratory Tests 05/02/19 05/02/19 05/02/19 Range/Units 16:28 16:28 18:13 WBC 6.1 (5.0-10.0) 10^3/uL RBC 4.25 L (4.6-6.2) 10^6/uL Hgb 12.5 L (14.0-18.0) g/dL Hct 37.1 L (40.0-54.0) % MCV 87.3 D (80-100) fL MCH 29.4 (27.0-34.0) pg MCHC 33.7 (33.0-35.0) g/dL Plt Count 341 (150-450) 10^3/uL Neut % (Auto) 76.8 H (42.2-75.2) % Lymph % (Auto) 16.1 L (20.5-50.1) % [place] % (Auto) 6.6 (2-8) % Eos % (Auto) 0.2 L (1.0-3.0) % Baso % (Auto) 0.3 (0.0-1.0) % Sodium 137 (135-145) mmol/L Potassium 3.5 L (3.6-5.0) mmol/L Chloride 104 (101-111) mmol/L Carbon Dioxide 23.0 (21.0-31.0) mmol/L Anion Gap 13.5 BUN 12 (7-18) mg/dL Creatinine 0.7 (0.6-1.3) mg/dL Est Cr Clr Drug Dosing 130.46 mL/min Estimated GFR (MDRD) > 60 BUN/Creatinine Ratio 17.14 Glucose 106 H (74-105) mg/dL Calcium 8.8 (8.4-10.2) mg/dl Total Bilirubin 0.5 (0.2-1.0) mg/dL AST 37 (10-42) IU/L ALT 38 (10-60) IU/L Alkaline Phosphatase 102 (42-121) IU/L Total Protein 6.5 L (6.7-8.2) g/dl Albumin 3.8 (3.2-5.5) g/dl Globulin 2.7 Albumin/Globulin Ratio 1.41 Urine Color Yellow (YELLOW) Urine Appearance Clear (CLEAR) Urine pH 7.5 (5.0-9.0) Ur Specific [place] 1.020 (1.005-1.030) Urine Protein Negative (NEGATIVE) Urine Glucose (UA) Negative (NEGATIVE) Urine Ketones Negative (NEGATIVE) Urine Occult Blood Trace-intact H (NEGATIVE) Urine Nitrite Negative (NEGATIVE) Urine Bilirubin Negative (NEGATIVE) Urine Urobilinogen 0.2 (0.2-1.0) mg/dL Ur Leukocyte Esterase Negative (NEGATIVE) Urine RBC 0-5 /HPF Urine WBC 0-5 (0-5/HPF) /HPF Ur Epithelial Cells Rare (NOT SEEN) /HPF Urine Bacteria Rare (0-FEW/HPF) /HPF Urine Opiates Screen (NEGATIVE) Ur Oxycodone Screen (NEGATIVE) Urine Methadone Screen (NEGATIVE) Ur Barbiturates Screen (NEGATIVE) U Tricyclic Antidepress (NEGATIVE) Ur Phencyclidine Scrn (NEGATIVE) Ur Amphetamine Screen (NEGATIVE) U Methamphetamines Scrn (NEGATIVE) Urine MDMA Screen (NEGATIVE) U Benzodiazepines Scrn (NEGATIVE) Urine Cocaine Screen (NEGATIVE) U Marijuana (THC) Screen (NEGATIVE) Ethyl Alcohol < 5 mg/dL 05/02/19 Range/Units 18:13 WBC (5.0-10.0) 10^3/uL RBC (4.6-6.2) 10^6/uL Hgb (14.0-18.0) g/dL Hct (40.0-54.0) % MCV (80-100) fL MCH (27.0-34.0) pg MCHC (33.0-35.0) g/dL Plt Count (150-450) 10^3/uL Neut % (Auto) (42.2-75.2) % Lymph % (Auto) (20.5-50.1) % [place] % (Auto) (2-8) % Eos % (Auto) (1.0-3.0) % Baso % (Auto) (0.0-1.0) % Sodium (135-145) mmol/L Potassium (3.6-5.0) mmol/L Chloride (101-111) mmol/L Carbon Dioxide (21.0-31.0) mmol/L Anion Gap BUN (7-18) mg/dL Creatinine (0.6-1.3) mg/dL Est Cr Clr Drug Dosing mL/min Estimated GFR (MDRD) BUN/Creatinine Ratio Glucose (74-105) mg/dL Calcium (8.4-10.2) mg/dl Total Bilirubin (0.2-1.0) mg/dL AST (10-42) IU/L ALT (10-60) IU/L Alkaline Phosphatase (42-121) IU/L Total Protein (6.7-8.2) g/dl Albumin (3.2-5.5) g/dl Globulin Albumin/Globulin Ratio Urine Color (YELLOW) Urine Appearance (CLEAR) Urine pH (5.0-9.0) Ur Specific [place] (1.005-1.030) Urine Protein (NEGATIVE) Urine Glucose (UA) (NEGATIVE) Urine Ketones (NEGATIVE) Urine Occult Blood (NEGATIVE) Urine Nitrite (NEGATIVE) Urine Bilirubin (NEGATIVE) Urine Urobilinogen (0.2-1.0) mg/dL Ur Leukocyte Esterase (NEGATIVE) Urine RBC /HPF Urine WBC (0-5/HPF) /HPF Ur Epithelial Cells (NOT SEEN) /HPF Urine Bacteria (0-FEW/HPF) /HPF Urine Opiates Screen Negative (NEGATIVE) Ur Oxycodone Screen Negative (NEGATIVE) Urine Methadone Screen Negative (NEGATIVE) Ur Barbiturates Screen Negative (NEGATIVE) U Tricyclic Antidepress Positive H (NEGATIVE) Ur Phencyclidine Scrn Negative (NEGATIVE) Ur Amphetamine Screen Negative (NEGATIVE) U Methamphetamines Scrn Negative (NEGATIVE) Urine MDMA Screen Negative (NEGATIVE) U Benzodiazepines Scrn Positive H (NEGATIVE) Urine Cocaine Screen Negative (NEGATIVE) U Marijuana (THC) Screen Negative (NEGATIVE) Ethyl Alcohol mg/dL Medications Discontinued Medications Generic Name Dose Route Start Last Admin Trade Name Freq PRN Reason Stop Dose Admin Multivitamins/Minerals 10 ml/ 1,011.2 mls @ 999 mls/hr 05/02/19 16:11 16:39 Folic Acid 1 mg/ Thiamine HCl IV 05/02/19 17:11 999 mls/hr 100 mg/ Lactated Ringer's ONETIME ONE Administration Pantoprazole Sodium 80 mg/ 100 mls @ 200 mls/hr 05/02/19 16:14 05/02/19 16:42 Sodium Chloride IV 05/02/19 16:43 200 mls/hr ONETIME ONE Administration Lorazepam 2 mg 05/02/19 16:03 05/02/19 16:10 Ativan IVPUSH 05/02/19 16:04 2 mg ONETIME ONE Administration Lorazepam Confirm 05/02/19 18:43 Ativan Administered 05/02/19 18:44 Dose 2 mg .ROUTE .STK-MED ONE Lorazepam 2 mg 05/02/19 15:55 Ativan PO 05/02/19 15:56 .STK-MED ONE Ondansetron HCl 4 mg 05/02/19 16:14 05/02/19 16:40 Zofran IVPUSH 05/02/19 16:15 4 mg ONETIME ONE Administration Departure - Departure Time of Disposition: 18:16 Disposition: Home, Self-Care 01 Condition: Good Clinical Impression: Alcohol abuse Alcohol withdrawal syndrome Qualifiers: Complication of substance-induced condition: with perceptual disturbance Qualified Code(s): F10.232 - Alcohol dependence with withdrawal with perceptual disturbance - Discharge Information *PRESCRIPTION DRUG MONITORING PROGRAM REVIEWED*: No *COPY OF PRESCRIPTION DRUG MONITORING REPORT IN PATIENT DIPTI: No Instructions: Alcohol Use Disorder Forms: ED Department Discharge Additional Instructions: stop drinking light bland diet avoid caffeine avoid spicy foods increase fluids Sepsis Event Note - Evaluation Sepsis Screening Result: No Definite Risk - Focused Exam Date Exam was Performed: 05/07/19 Time Exam was Performed: 20:51 I have read and agree with the documentation that has been completed regarding this visit. By signing this record, I attest that the documentation was completed in my physical presence and is an accurate record of the encounter.
== END 2019-05-02 18:34 | disposition home or self-care (01) ==
LOC: DL.ED 15:54
DX: F10.232 Alcohol dependence with withdrawal with perceptual disturbance (principal); Y90.0 Blood alcohol level of less than 20 mg/100 ml; F17.210 Nicotine dependence, cigarettes, uncomplicated; Z88.8 Allergy status to other drugs, medicaments and biological substances; Z88.0 Allergy status to penicillin; Z79.899 Other long term (current) drug therapy
CPT/HCPCS: 36415; 80053; 80305; 80307; 81001; 85025; 96365; 96375; 99284; A9270; C9113; J2060; J2405; J3411; J7050; J7120; J3490

== ENCOUNTER 2019-05-18 14:29 | Observation (INO) | payer MEDICAID ==
[~2019-05-18 14:29] MED LIST changes: +MVI, Adult with Vitamin K 10 ML, Folic Acid 1 MG, Thiamine 100 MG in Lactated Ringers 1... IV ONE; +Ondansetron 4 MG/2 ML SDV IVPUSH ONE; -Sodium Chloride 0.9% 10 ML Syringe FLUSH PRN
--- NOTE | 2019-05-18 14:29 | EDM.PDOCBH ---
ED HPI GENERAL MEDICAL PROBLEM - General Chief Complaint: Drug or Alcohol Abuse Stated Complaint: ALCOHOL WITHDRAWAL Time Seen by Provider: 05/18/19 14:15 Source of Information: Reports: Patient, Provider (Patient was sent to the ED from [facility]) History Limitations: Reports: No Limitations - History of Present Illness INITIAL COMMENTS - FREE TEXT/NARRATIVE: This 48 yo male patient was brought to the ED by [facility] due to alcohol withdrawals. The patient was sent by ambulance from the [facility] due to withdrawal symptoms. The patient reports he has been drinking vodka for the 5 days up to the time he passed out yesterday morning at about 0600. The patient reports he has had the shakes and frequent vomiting since that time. The patient reports he has been seen previous times with similar symptoms due to acute alcohol withdrawal. The patient also has a history of esophageal varices and stomach ulcers. The patient reports he has not been throwing up any blood. The patient denies any drug use. The patient was given 2 mg of IM Ativan while at the [facility] prior to transport by ambulance. 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(s) (Ativan (2 mg) IV while at the [facility]) - Related Data Allergies Allergy/AdvReac Type Severity Reaction Status Date / Time ertapenem Allergy Rash Verified 02/27/19 21:34 fluoxetine Allergy Cannot Verified 02/27/19 21:34 Remember Penicillins Allergy Hives Verified 02/27/19 21:34 Home Meds: Home Meds Multivitamin [Multi-Day Vitamins] 1 tab PO DAILY 10/16/17 [History] carBAMazepine [Carbamazepine] 200 mg PO BID 10/16/17 [History] diphenhydrAMINE HCl [Benadryl] 25 mg PO BEDTIME 10/16/17 [History] Past Medical History - Past Health History Medical/Surgical History: Denies Medical/Surgical History HEENT History: Reports: Hard of Hearing, Impaired Vision, None 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 Cardiovascular History: Reports: None Respiratory History: Reports: None Gastrointestinal History: Reports: GI Bleed, PUD Other Gastrointestinal History: Esophageal Varaces Genitourinary History: Reports: None Other Genitourinary History: increased frequency Musculoskeletal History: Reports: None Neurological History: Reports: Seizure Other Neuro History: alcohol seizures Psychiatric History: Reports: Addiction, Anxiety Endocrine/Metabolic History: Reports: None Hematologic History: Reports: None Immunologic History: Reports: None Oncologic (Cancer) History: Reports: None Dermatologic History: Reports: Cellulitis - Infectious Disease History Infectious Disease History: Reports: MRSA - Past Surgical History Head Surgeries/Procedures: Reports: None Musculoskeletal Surgical History: Reports: Arthroscopic Knee, Shoulder Surgery Social & Family History - Family History Family Medical History: Noncontributory - Caffeine Use Caffeine Use: Reports: Coffee, Energy Drinks - Living Situation & Occupation Living situation: Reports: , with Family Occupation: Unemployed ED ROS GENERAL - Review of Systems Review Of Systems: Comprehensive ROS is negative, except as noted in HPI. ED EXAM, BEHAVIORAL HEALTH - Physical Exam Exam: See Below Exam Limited By: No Limitations General Appearance: Alert, WD/WN, Moderate Distress Eye Exam: Bilateral Eye: EOMI, Normal Inspection, PERRL Ears: Normal External Exam, Normal Canal, Hearing Grossly Normal, Normal TMs Nose: Normal Inspection, Normal Mucosa, No Blood Throat/Mouth: Normal Inspection, Normal Lips, Normal Teeth, Normal Gums, Normal Oropharynx, Normal Voice, No Airway Compromise Head: Atraumatic, Normocephalic Neck: Normal Inspection, Supple, Non-Tender, Full Range of Motion Respiratory/Chest: No Respiratory Distress, Lungs Clear, Normal Breath Sounds, No Accessory Muscle Use, Chest Non-Tender Cardiovascular: Normal Peripheral Pulses, Regular Rate, Rhythm, No Edema, No Gallop, No JVD, No Murmur, No Rub GI/Abdominal: Normal Bowel Sounds, Soft, Non-Tender, No Organomegaly, No Distention, No Abnormal Bruit, No Mass (Male) Exam: Deferred Rectal (Males) Exam: Deferred Back Exam: Normal Inspection, Full Range of Motion, NT Extremities: Normal Range of Motion, Non-Tender, No Pedal Edema, Normal Capillary Refill, Other (Tremers ) Neurological: Alert, Normal Mood/Affect, CN II-XII Intact, Normal Cognition, Oriented x 3 Psychiatric: Alert, Normal Affect, Normal Cognition, Normal Mood, Oriented Skin Exam: Warm, Dry, Intact, Normal color, No rash COURSE, BEHAVIORAL HEALTH COMP - Course Vital Signs: Last Vital Signs Temp 36.7 C 05/18/19 14:29 Pulse 87 05/18/19 14:29 Resp 16 05/18/19 14:29 BP 155/94 H 05/18/19 14:29 Pulse Ox 99 05/18/19 14:29 Orders, Labs, Meds: Active Orders 24 hr Category Date Time Status Admission Diagnosis [ADT] Urgent ADT 05/18/19 15:12 Ordered Admission Status [Patient Status] [ADT] Routine ADT 05/18/19 15:12 Ordered DRUG SCREEN URINE BIORAD [URCHEM] Stat Lab 05/18/19 13:56 Ordered UA RFX SANDY AND CULT IF INDIC [URIN] Urgent Lab 05/18/19 13:56 Ordered Laboratory Tests 05/18/19 05/18/19 05/18/19 Range/Units 14:15 14:15 14:15 WBC 7.3 (5.0-10.0) 10^3/uL RBC 4.58 L (4.6-6.2) 10^6/uL Hgb 13.2 L (14.0-18.0) g/dL Hct 38.1 L (40.0-54.0) % MCV 83.2 D (80-100) fL MCH 28.8 (27.0-34.0) pg MCHC 34.6 (33.0-35.0) g/dL Plt Count 291 (150-450) 10^3/uL Neut % (Auto) 74.0 (42.2-75.2) % Lymph % (Auto) 17.4 L (20.5-50.1) % [place] % (Auto) 7.1 (2-8) % Eos % (Auto) 1.0 (1.0-3.0) % Baso % (Auto) 0.5 (0.0-1.0) % Sodium (136-145) mmol/L Potassium (3.5-5.1) mmol/L Chloride (98-107) mmol/L Carbon Dioxide (21-32) mmol/L Anion Gap (7-13) mEq/L BUN (7-18) mg/dL Creatinine (0.70-1.30) mg/dL Est Cr Clr Drug Dosing mL/min Estimated GFR (MDRD) BUN/Creatinine Ratio (No establ ref range) Glucose (74-99) mg/dL Calcium (8.5-10.1) mg/dL Magnesium 1.6 L (1.8-2.4) mg/dL Total Bilirubin (0.2-1.0) mg/dL AST (15-37) U/L ALT (16-63) U/L Alkaline Phosphatase (46-116) U/L Total Protein (6.4-8.2) g/dL Albumin (3.4-5.0) g/dL Globulin Albumin/Globulin Ratio Salicylates < 2.8 L (2.8-20(Therapeutic)) mg/dL Acetaminophen 0 L (10-30 (Therapeutic)) ug/mL Ethyl Alcohol < 3 (0) mg/dL 05/18/19 Range/Units 14:15 WBC (5.0-10.0) 10^3/uL RBC (4.6-6.2) 10^6/uL Hgb (14.0-18.0) g/dL Hct (40.0-54.0) % MCV (80-100) fL MCH (27.0-34.0) pg MCHC (33.0-35.0) g/dL Plt Count (150-450) 10^3/uL Neut % (Auto) (42.2-75.2) % Lymph % (Auto) (20.5-50.1) % [place] % (Auto) (2-8) % Eos % (Auto) (1.0-3.0) % Baso % (Auto) (0.0-1.0) % Sodium 140 (136-145) mmol/L Potassium 3.6 (3.5-5.1) mmol/L Chloride 100 (98-107) mmol/L Carbon Dioxide 26 (21-32) mmol/L Anion Gap 17.6 H (7-13) mEq/L BUN 11 (7-18) mg/dL Creatinine 0.82 (0.70-1.30) mg/dL Est Cr Clr Drug Dosing 107.74 mL/min Estimated GFR (MDRD) > 60 BUN/Creatinine Ratio 13.4 (No establ ref range) Glucose 103 H (74-99) mg/dL Calcium 8.3 L (8.5-10.1) mg/dL Magnesium (1.8-2.4) mg/dL Total Bilirubin 0.3 (0.2-1.0) mg/dL AST 31 (15-37) U/L ALT 62 (16-63) U/L Alkaline Phosphatase 116 (46-116) U/L Total Protein 6.9 (6.4-8.2) g/dL Albumin 3.6 (3.4-5.0) g/dL Globulin 3.3 Albumin/Globulin Ratio 1.1 Salicylates (2.8-20(Therapeutic)) mg/dL Acetaminophen (10-30 (Therapeutic)) ug/mL Ethyl Alcohol (0) mg/dL Medications Discontinued Medications Generic Name Dose Route Start Last Admin Trade Name Freq PRN Reason Stop Dose Admin Multivitamins/Minerals 10 ml/ 1,011.2 mls @ 999 mls/hr 05/18/19 13:57 14:28 Folic Acid 1 mg/ Thiamine HCl IV 05/18/19 14:57 999 mls/hr 100 mg/ Lactated Ringer's ONETIME ONE Administration Ondansetron HCl 4 mg 05/18/19 14:24 05/18/19 14:36 Zofran IVPUSH 05/18/19 14:25 4 mg ONETIME ONE Administration Departure - Departure Time of Disposition: 15:17 Disposition: Admitted As Inpatient 67 Condition: Fair Clinical Impression: Alcohol withdrawal syndrome Qualifiers: Complication of substance-induced condition: with perceptual disturbance Qualified Code(s): F10.232 - Alcohol dependence with withdrawal with perceptual disturbance - Discharge Information Care Plan Goals: Discussed the patient's history, examination, lab results and treatments with Dr. Holder. Dr. Holder accepted the patient for continued evaluation and further management as an inpatient at [facility]. Sepsis Event Note - Focused Exam Vital Signs: Vital Signs Temp Pulse Resp BP Pulse Ox 05/18/19 14:29 36.7 C 87 16 155/94 H 99 Date Exam was Performed: 05/18/19 Time Exam was Performed: 15:17 - My Orders Last 24 Hours: My Active Orders 05/18/19 13:56 DRUG SCREEN URINE BIORAD [URCHEM] Stat UA RFX SANDY AND CULT IF INDIC [URIN] Urgent 05/18/19 15:12 Admission Diagnosis [ADT] Urgent Admission Status [Patient Status] [ADT] Routine - Assessment/Plan Last 24 Hours: My Active Orders 05/18/19 13:56 DRUG SCREEN URINE BIORAD [URCHEM] Stat UA RFX SANDY AND CULT IF INDIC [URIN] Urgent 05/18/19 15:12 Admission Diagnosis [ADT] Urgent Admission Status [Patient Status] [ADT] Routine
[2019-05-18 14:42] LABS: ANION GAP 17.6 mEq/L (7-13); CHLORIDE,CL 100 mmol/L (98-107); SODIUM,NA 140 mmol/L (136-145)
[2019-05-18 14:43] LABS: ACETAMINOPHEN 0 ug/mL (10-30 (Therapeutic))
[2019-05-18] MEDS ORDERED: LORazepam 1 MG Tab PO PRN (16:11)
[2019-05-18] MEDS ORDERED: Ibuprofen 400 MG Tab PO PRN (16:14)
[2019-05-18] MEDS ORDERED: Acetaminophen 325 MG Tab PO PRN (16:14)
[2019-05-18] MEDS ORDERED: Ondansetron 4 MG Tab.DIS PO PRN (16:14)
[2019-05-18] MEDS ORDERED: Ondansetron 4 MG/2 ML SDV IVPUSH PRN (16:14)
[2019-05-18] MEDS ORDERED: Zolpidem 5 MG Tab PO PRN (16:14)
[2019-05-18] MEDS ORDERED: Ketorolac 30 MG/ML SDV IM PRN (16:14)
[2019-05-18] MEDS ORDERED: NS + KCl 20mEq/L 1,000 ML IV SCH (16:15)
--- NOTE | 2019-05-18 16:23 | PCM.HP ---
H&P History of Present Illness - General Date of Service: 05/18/19 Admit Problem/Dx: Admission Diagnosis/Problem Admission Diagnosis/Problem Alcohol withdrawal delirium Source of Information: Patient, Provider - History of Present Illness Initial Comments - Free Text/Narative: 48-year-old gentleman with a history of alcohol addiction, alcohol abuse. He says he has been in treatment multiple times last one was 5 years ago. He denies drug use but was tested positive for amphetamine He went to [facility] with complaints of alcohol withdrawal symptoms. He says he has been drinking heavily with friends, has been drinking vodka. Last drink on Saturday morning On the day of admission his complaining of seeing things, hearing voices, shaking. He was given 2 mg IM Ativan at [facility]. - Related Data Allergies/Adverse Reactions: Allergies Allergy/AdvReac Type Severity Reaction Status Date / Time ertapenem Allergy Rash Verified 02/27/19 21:34 fluoxetine Allergy Cannot Verified 02/27/19 21:34 Remember Penicillins Allergy Hives Verified 02/27/19 21:34 Home Medications: Home Meds Multivitamin [Multi-Day Vitamins] 1 tab PO DAILY 10/16/17 [History] carBAMazepine [Carbamazepine] 200 mg PO BID 10/16/17 [History] diphenhydrAMINE HCl [Benadryl] 25 mg PO BEDTIME 10/16/17 [History] Past Medical History - Past Health History Medical/Surgical History: Denies Medical/Surgical History HEENT History: Reports: Hard of Hearing, Impaired Vision, None 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 Cardiovascular History: Reports: None Respiratory History: Reports: None Gastrointestinal History: Reports: GI Bleed, PUD Other Gastrointestinal History: Esophageal Varaces Genitourinary History: Reports: None Other Genitourinary History: increased frequency Musculoskeletal History: Reports: None Neurological History: Reports: Seizure Other Neuro History: alcohol seizures Psychiatric History: Reports: Addiction, Anxiety Endocrine/Metabolic History: Reports: None Hematologic History: Reports: None Immunologic History: Reports: None Oncologic (Cancer) History: Reports: None Dermatologic History: Reports: Cellulitis - Infectious Disease History Infectious Disease History: Reports: None - Past Surgical History Head Surgeries/Procedures: Reports: None Musculoskeletal Surgical History: Reports: Arthroscopic Knee, Shoulder Surgery Social & Family History - Family History Family Medical History: Noncontributory - Tobacco Use Smoking Status *Q: Current Every Day Smoker Years of Tobacco use: 30 Packs/Tins Daily: 0.5 Used Tobacco, but Quit: No Second Hand Smoke Exposure: No - Caffeine Use Caffeine Use: Reports: Coffee, Energy Drinks - Alcohol Use Days Per Week of Alcohol Use: 7 Number of Drinks Per Day: 12 Total Drinks Per Week: 84 - Recreational Drug Use Recreational Drug Use: No - Living Situation & Occupation Living situation: Reports: , with Family Occupation: Unemployed H&P Review of Systems - Review of Systems: Review Of Systems: See Below General: Denies: Fever Pulmonary: Denies: Shortness of Breath, Wheezing Cardiovascular: Denies: Chest Pain Gastrointestinal: Reports: Nausea. Denies: Abdominal Pain Genitourinary: Denies: Dysuria Neurological: Reports: Confusion, Tremors, Other (Hallucination) Exam - Exam Exam: See Below - Vital Signs Vital Signs: Last Vital Signs Temp 98.4 F 05/18/19 15:39 Pulse 93 05/18/19 15:39 Resp 20 05/18/19 15:39 BP 164/95 H 05/18/19 15:39 Pulse Ox 100 05/18/19 15:39 Weight: 200 lb 6.4 oz - Exam General: Alert, Oriented HEENT: EOMI Neck: Supple Lungs: Clear to Auscultation, Normal Respiratory Effort Cardiovascular: Regular Rate, Regular Rhythm GI/Abdominal Exam: Normal Bowel Sounds, Soft, Non-Tender Extremities: No Pedal Edema Skin: Warm, Dry Neuro Extensive - Mental Status: Alert, Oriented x3, Normal Mood/Affect - Patient Data Lab Results Last 24 hrs: Laboratory Results - last 24 hr 05/18/19 05/18/19 05/18/19 Range/Units 14:15 14:15 14:15 WBC 7.3 (5.0-10.0) 10^3/uL RBC 4.58 L (4.6-6.2) 10^6/uL Hgb 13.2 L (14.0-18.0) g/dL Hct 38.1 L (40.0-54.0) % MCV 83.2 D (80-100) fL MCH 28.8 (27.0-34.0) pg MCHC 34.6 (33.0-35.0) g/dL Plt Count 291 (150-450) 10^3/uL Neut % (Auto) 74.0 (42.2-75.2) % Lymph % (Auto) 17.4 L (20.5-50.1) % [place] % (Auto) 7.1 (2-8) % Eos % (Auto) 1.0 (1.0-3.0) % Baso % (Auto) 0.5 (0.0-1.0) % Sodium (136-145) mmol/L Potassium (3.5-5.1) mmol/L Chloride (98-107) mmol/L Carbon Dioxide (21-32) mmol/L Anion Gap (7-13) mEq/L BUN (7-18) mg/dL Creatinine (0.70-1.30) mg/dL Est Cr Clr Drug Dosing mL/min Estimated GFR (MDRD) BUN/Creatinine Ratio (No establ ref range) Glucose (74-99) mg/dL Calcium (8.5-10.1) mg/dL Magnesium 1.6 L (1.8-2.4) mg/dL Total Bilirubin (0.2-1.0) mg/dL AST (15-37) U/L ALT (16-63) U/L Alkaline Phosphatase (46-116) U/L Total Protein (6.4-8.2) g/dL Albumin (3.4-5.0) g/dL Globulin Albumin/Globulin Ratio Urine Color (YELLOW) Urine Appearance (CLEAR) Urine pH (5.0-9.0) Ur Specific [place] (1.005-1.030) Urine Protein (NEGATIVE) Urine Glucose (UA) (NEGATIVE) Urine Ketones (NEGATIVE) Urine Occult Blood (NEGATIVE) Urine Nitrite (NEGATIVE) Urine Bilirubin (NEGATIVE) Urine Urobilinogen (0.2-1.0) mg/dL Ur Leukocyte Esterase (NEGATIVE) Urine RBC /HPF Urine WBC (0-5/HPF) /HPF Ur Epithelial Cells (NOT SEEN) /HPF Amorphous Sediment (NOT SEEN) /HPF Urine Bacteria (0-FEW/HPF) /HPF Urine Mucus (NOT SEEN) /LPF Salicylates < 2.8 L (2.8-20(Therapeutic)) mg/dL Urine Opiates Screen (NEGATIVE) Ur Oxycodone Screen (NEGATIVE) Urine Methadone Screen (NEGATIVE) Acetaminophen 0 L (10-30 (Therapeutic)) ug/mL Ur Barbiturates Screen (NEGATIVE) U Tricyclic Antidepress (NEGATIVE) Ur Phencyclidine Scrn (NEGATIVE) Ur Amphetamine Screen (NEGATIVE) U Methamphetamines Scrn (NEGATIVE) Urine MDMA Screen (NEGATIVE) U Benzodiazepines Scrn (NEGATIVE) Urine Cocaine Screen (NEGATIVE) U Marijuana (THC) Screen (NEGATIVE) Ethyl Alcohol < 3 (0) mg/dL 05/18/19 05/18/19 05/18/19 Range/Units 14:15 15:44 15:44 WBC (5.0-10.0) 10^3/uL RBC (4.6-6.2) 10^6/uL Hgb (14.0-18.0) g/dL Hct (40.0-54.0) % MCV (80-100) fL MCH (27.0-34.0) pg MCHC (33.0-35.0) g/dL Plt Count (150-450) 10^3/uL Neut % (Auto) (42.2-75.2) % Lymph % (Auto) (20.5-50.1) % [place] % (Auto) (2-8) % Eos % (Auto) (1.0-3.0) % Baso % (Auto) (0.0-1.0) % Sodium 140 (136-145) mmol/L Potassium 3.6 (3.5-5.1) mmol/L Chloride 100 (98-107) mmol/L Carbon Dioxide 26 (21-32) mmol/L Anion Gap 17.6 H (7-13) mEq/L BUN 11 (7-18) mg/dL Creatinine 0.82 (0.70-1.30) mg/dL Est Cr Clr Drug Dosing 107.74 mL/min Estimated GFR (MDRD) > 60 BUN/Creatinine Ratio 13.4 (No establ ref range) Glucose 103 H (74-99) mg/dL Calcium 8.3 L (8.5-10.1) mg/dL Magnesium (1.8-2.4) mg/dL Total Bilirubin 0.3 (0.2-1.0) mg/dL AST 31 (15-37) U/L ALT 62 (16-63) U/L Alkaline Phosphatase 116 (46-116) U/L Total Protein 6.9 (6.4-8.2) g/dL Albumin 3.6 (3.4-5.0) g/dL Globulin 3.3 Albumin/Globulin Ratio 1.1 Urine Color Yellow (YELLOW) Urine Appearance Slightly cloudy (CLEAR) Urine pH 8.5 (5.0-9.0) Ur Specific [place] 1.020 (1.005-1.030) Urine Protein Trace H (NEGATIVE) Urine Glucose (UA) Negative (NEGATIVE) Urine Ketones Negative (NEGATIVE) Urine Occult Blood Negative (NEGATIVE) Urine Nitrite Negative (NEGATIVE) Urine Bilirubin Negative (NEGATIVE) Urine Urobilinogen 0.2 (0.2-1.0) mg/dL Ur Leukocyte Esterase Negative (NEGATIVE) Urine RBC 0-5 /HPF Urine WBC 0-5 (0-5/HPF) /HPF Ur Epithelial Cells Rare (NOT SEEN) /HPF Amorphous Sediment Moderate (NOT SEEN) /HPF Urine Bacteria Rare (0-FEW/HPF) /HPF Urine Mucus Few H (NOT SEEN) /LPF Salicylates (2.8-20(Therapeutic)) mg/dL Urine Opiates Screen Negative (NEGATIVE) Ur Oxycodone Screen Negative (NEGATIVE) Urine Methadone Screen Negative (NEGATIVE) Acetaminophen (10-30 (Therapeutic)) ug/mL Ur Barbiturates Screen Negative (NEGATIVE) U Tricyclic Antidepress Negative (NEGATIVE) Ur Phencyclidine Scrn Negative (NEGATIVE) Ur Amphetamine Screen Negative (NEGATIVE) U Methamphetamines Scrn Positive H (NEGATIVE) Urine MDMA Screen Negative (NEGATIVE) U Benzodiazepines Scrn Positive H (NEGATIVE) Urine Cocaine Screen Negative (NEGATIVE) U Marijuana (THC) Screen Negative (NEGATIVE) Ethyl Alcohol (0) mg/dL Result Diagrams: 05/18/19 14:15 05/18/19 14:15 - Problem List (1) Alcohol abuse SNOMED Code(s): 71939457 ICD Code: F10.10 - ALCOHOL ABUSE, UNCOMPLICATED Status: Acute Current Visit: No (2) History of seizure disorder SNOMED Code(s): 678244039 ICD Code: Z86.69 - PERSONAL HISTORY OF DIS OF THE NERVOUS SYS AND SENSE ORGANS Status: Acute Current Visit: No (3) Vomiting SNOMED Code(s): 758663435 ICD Code: R11.10 - VOMITING, UNSPECIFIED Status: Acute Current Visit: No Qualifiers: Vomiting type: unspecified Nausea presence: with nausea Qualified Code(s) : R11.2 - Nausea with vomiting, unspecified Problem List Initiated/Reviewed/Updated: Yes Orders Last 24hrs: Active Orders 24 hr Category Date Time Status Admission Diagnosis [ADT] Urgent ADT 05/18/19 15:12 Ordered Admission Status [Patient Status] [ADT] Routine ADT 05/18/19 15:12 Active Antiembolic Devices [RC] PER UNIT ROUTINE Care 05/18/19 16:15 Ordered Oxygen Therapy [RC] PRN Care 05/18/19 16:14 Ordered Up With Assistance [RC] ASDIRECTED Care 05/18/19 16:14 Ordered VTE/DVT Education [RC] PER UNIT ROUTINE Care 05/18/19 16:14 Ordered Vital Signs [RC] Q4H Care 05/18/19 16:14 Ordered Regular Diet [DIET] Diet 05/18/19 Dinner Ordered BASIC METABOLIC PANEL,BMP [CHEM] AM Lab 05/19/19 05:11 Ordered CBC W/O DIFF,HEMOGRAM [HEME] AM Lab 05/19/19 05:11 Ordered MAGNESIUM [CHEM] AM Lab 05/19/19 05:11 Ordered PHOSPHORUS [CHEM] AM Lab 05/19/19 05:11 Ordered Acetaminophen [Tylenol] Med 05/18/19 16:14 Ordered 650 mg PO Q4H PRN Folic Acid Med 05/18/19 21:00 Ordered 1 mg PO BEDTIME Heparin Sodium Med 05/18/19 22:00 Ordered 5,000 units SUBCUT Q8HR Ibuprofen [Motrin] Med 05/18/19 16:14 Ordered 400 mg PO Q6H PRN Ketorolac [Toradol] Med 05/18/19 16:14 Ordered 30 mg IM Q6H PRN LORazepam [Ativan] Med 05/18/19 16:11 Ordered 1 mg PO Q1H PRN LORazepam [Ativan] Med 05/18/19 16:10 Ordered See Protocol IVPUSH Q1H PRN Multivitamins,Therapeutic [Thera] Med 05/18/19 21:00 Ordered 1 each PO BEDTIME Ondansetron [Zofran ODT] Med 05/18/19 16:14 Ordered 4 mg PO Q6H PRN Ondansetron [Zofran] Med 05/18/19 16:14 Ordered 4 mg IVPUSH Q4H PRN Sodium Chloride 0.9% with KCl 20 mEq @ 150 mL/Hr (1000 Med 05/18/19 16:15 Ordered mL) NS + KCl 20mEq/L [Normal Saline with 20 mEq KCl] 1,000 ml IV ASDIRECTED Thiamine [Vitamin B-1] Med 05/18/19 21:00 Ordered 100 mg PO BEDTIME Zolpidem [Ambien] Med 05/18/19 16:14 Ordered 5 mg PO BEDTIME PRN carBAMazepine [TEGretol Tab] Med 05/18/19 21:00 Ordered 200 mg PO BID Antiembolic Hose [OM.PC] Per Unit Routine Oth 05/18/19 16:14 Ordered Seizure Precautions [OM.PC] Routine Oth 05/18/19 16:13 Ordered Resuscitation Status Routine Resus Stat 05/18/19 16:14 Ordered Medication Orders Acetaminophen (Tylenol) 650 mg PO Q4H PRN PRN Reason: Pain (Mild 1-3)/fever Carbamazepine (Tegretol Tab) 200 mg PO BID DAYANARA Folic Acid (Folic Acid) 1 mg PO BEDTIME DAYANARA Heparin Sodium (Porcine) (Heparin Sodium) 5,000 units SUBCUT Q8HR DAYANARA Potassium Chloride/Sodium Chloride (Normal Saline With 20 Meq Kcl) 1,000 mls @ 150 mls/hr IV ASDIRECTED DAYANARA Ibuprofen (Motrin) 400 mg PO Q6H PRN PRN Reason: Pain (moderate 4-6) Ketorolac Tromethamine (Toradol) 30 mg IM Q6H PRN PRN Reason: Pain (severe 7-10) Lorazepam (Ativan) 0 mg IVPUSH Q1H PRN; Protocol PRN Reason: ciwa protocol Lorazepam (Ativan) 1 mg PO Q1H PRN PRN Reason: ciwa protocol Multivitamins (Thera) 1 each PO BEDTIME DAYANARA Ondansetron HCl (Zofran Odt) 4 mg PO Q6H PRN PRN Reason: nausea, able to take PO Ondansetron HCl (Zofran) 4 mg IVPUSH Q4H PRN PRN Reason: Nausea/Vomiting Thiamine HCl (Vitamin B-1) 100 mg PO BEDTIME DAYANARA Zolpidem Tartrate (Ambien) 5 mg PO BEDTIME PRN PRN Reason: Sleep Assessment/Plan Comment:: Presented with history of severe alcohol abuse, last alcohol intake on Saturday morning. He was complaining that he is shaking, has hallucinations. The patient was given 2 mg IM Ativan prior to presentation to the ER. 1. Chronic Alcohol addiction. Consult Social Work and evaluate for alcohol treatment programs. 2. Chronic alcohol use. Supplement thiamine, folate and multivitamin. 3. High Risk for alcohol withdrawal. Frequent evaluations and titration of Ativan per the [facility] protocol 4. Nausea, vomiting Likely secondary to all chronic gastritis Will give PPI 5. History of seizure disorder Continue carbamazepine 6. Deep venous thrombosis (DVT) prophylaxis will be with subcutaneous heparin.
[2019-05-18] MEDS: LORazepam 2 MG/ML SDV IVPUSH PRN ×2 (17:00→21:24)
[2019-05-18] MEDS ORDERED: Thiamine 100 MG Tab PO SCH (21:00)
[2019-05-18] MEDS ORDERED: Folic Acid 1 MG Tab PO SCH (21:00)
[2019-05-18] MEDS ORDERED: Pantoprazole 40 MG Tab.CR PO SCH (21:00)
[2019-05-18] MEDS ORDERED: Multivitamins,Therapeutic Tab PO SCH (21:00)
[2019-05-18] MEDS: carBAMazepine 200 MG Tab PO SCH (21:03)
[2019-05-18] MEDS: Heparin Sodium 5,000 Units/ML Vial SUBCUT SCH (21:06)
[2019-05-19] MEDS: Heparin Sodium 5,000 Units/ML Vial SUBCUT SCH (05:32)
[2019-05-19 06:55] LABS: ANION GAP 13.5 mEq/L (7-13); CHLORIDE,CL 104 mmol/L (98-107); SODIUM,NA 141 mmol/L (136-145)
[2019-05-19 07:50] VITALS: BP 149/91; PULSE 73
[2019-05-19] MEDS: LORazepam 2 MG/ML SDV IVPUSH PRN (08:57)
[2019-05-19] MEDS: carBAMazepine 200 MG Tab PO SCH (08:57)
--- NOTE | 2019-05-19 10:04 | PCM.DCSUM1 ---
Discharge Summary - Hospital Course Free Text/Narrative:: 48-year-old with a history of alcohol abuse, seizure disorder. The patient Presented with history of heavy alcohol use. He was complaining of anxiety and tremors. The patient had mild symptoms only during the night, has been able to eat well. The patient We'll be discharged with oral Ativan for outpatient follow-up. Diagnosis: Stroke: No - Discharge Data Discharge Date: 05/19/19 Discharge Disposition: Home, Self-Care 01 Condition: Good - Referral to Home Health Primary Care Physician: Shanique Alvares PA-C - Discharge Diagnosis/Problem(s) (1) Alcohol abuse SNOMED Code(s): 18664270 ICD Code: F10.10 - ALCOHOL ABUSE, UNCOMPLICATED Status: Acute Current Visit: No (2) History of seizure disorder SNOMED Code(s): 926799800 ICD Code: Z86.69 - PERSONAL HISTORY OF DIS OF THE NERVOUS SYS AND SENSE ORGANS Status: Acute Current Visit: No (3) Vomiting SNOMED Code(s): 339825604 ICD Code: R11.10 - VOMITING, UNSPECIFIED Status: Acute Current Visit: No Qualifiers: Vomiting type: unspecified Nausea presence: with nausea Qualified Code(s) : R11.2 - Nausea with vomiting, unspecified - Patient Instructions Diet: Heart Healthy Diet Activity: As Tolerated - Discharge Plan *PRESCRIPTION DRUG MONITORING PROGRAM REVIEWED*: Not Applicable *COPY OF PRESCRIPTION DRUG MONITORING REPORT IN PATIENT DIPTI: Not Applicable Prescriptions/Med Rec: Folic Acid 1 mg PO BEDTIME #14 tablet LORazepam [Ativan] 1 mg PO Q4H PRN #7 tablet PRN Reason: tremors, anxiety Multivitamin [Multi-Day Vitamins] 1 tab PO DAILY #30 tablet Thiamine [Vitamin B-1] 100 mg PO BEDTIME #14 tablet Home Medications: Home Meds carBAMazepine [Carbamazepine] 200 mg PO BID 10/16/17 [History] Folic Acid 1 mg PO BEDTIME #14 tablet 05/19/19 [Rx] LORazepam [Ativan] 1 mg PO Q4H PRN #7 tablet 05/19/19 [Rx] Multivitamin [Multi-Day Vitamins] 1 tab PO DAILY #30 tablet 05/19/19 [Rx] Thiamine [Vitamin B-1] 100 mg PO BEDTIME #14 tablet 05/19/19 [Rx] Referrals: PCP,Unobtain [Ordering Only Provider] - (in 2-3 days) - Discharge Summary/Plan Comment DC Time >30 min.: No - General Info Date of Service: 05/19/19 Admission Dx/Problem (Free Text: Admission Diagnosis/Problem Admission Diagnosis/Problem Alcohol withdrawal delirium Functional Status: Reports: Pain Controlled, Tolerating Diet - Review of Systems General: Denies: Fever Pulmonary: Denies: Shortness of Breath Cardiovascular: Denies: Chest Pain, Edema Gastrointestinal: Denies: Abdominal Pain Psychiatric: Reports: Anxiety - Patient Data Vitals - Most Recent: Last Vital Signs Temp 97.5 F 05/19/19 07:49 Pulse 73 05/19/19 07:49 Resp 18 05/19/19 07:49 BP 149/91 H 05/19/19 07:49 Pulse Ox 96 05/19/19 07:49 Weight - Most Recent: 200 lb 6.4 oz I&O - Last 24 hours: Intake & Output 05/18/19 05/19/19 05/19/19 22:59 06:59 14:59 Intake Total 0 550 Balance 0 550 Lab Results - Last 24 hrs: Laboratory Results - last 24 hr 05/18/19 05/18/19 05/18/19 Range/Units 14:15 14:15 14:15 WBC 7.3 (5.0-10.0) 10^3/uL RBC 4.58 L (4.6-6.2) 10^6/uL Hgb 13.2 L (14.0-18.0) g/dL Hct 38.1 L (40.0-54.0) % MCV 83.2 D (80-100) fL MCH 28.8 (27.0-34.0) pg MCHC 34.6 (33.0-35.0) g/dL Plt Count 291 (150-450) 10^3/uL Neut % (Auto) 74.0 (42.2-75.2) % Lymph % (Auto) 17.4 L (20.5-50.1) % [place] % (Auto) 7.1 (2-8) % Eos % (Auto) 1.0 (1.0-3.0) % Baso % (Auto) 0.5 (0.0-1.0) % Sodium (136-145) mmol/L Potassium (3.5-5.1) mmol/L Chloride (98-107) mmol/L Carbon Dioxide (21-32) mmol/L Anion Gap (7-13) mEq/L BUN (7-18) mg/dL Creatinine (0.70-1.30) mg/dL Est Cr Clr Drug Dosing mL/min Estimated GFR (MDRD) BUN/Creatinine Ratio (No establ ref range) Glucose (74-99) mg/dL Calcium (8.5-10.1) mg/dL Phosphorus (2.6-4.7) mg/dL Magnesium 1.6 L (1.8-2.4) mg/dL Total Bilirubin (0.2-1.0) mg/dL AST (15-37) U/L ALT (16-63) U/L Alkaline Phosphatase (46-116) U/L Total Protein (6.4-8.2) g/dL Albumin (3.4-5.0) g/dL Globulin Albumin/Globulin Ratio Urine Color (YELLOW) Urine Appearance (CLEAR) Urine pH (5.0-9.0) Ur Specific [place] (1.005-1.030) Urine Protein (NEGATIVE) Urine Glucose (UA) (NEGATIVE) Urine Ketones (NEGATIVE) Urine Occult Blood (NEGATIVE) Urine Nitrite (NEGATIVE) Urine Bilirubin (NEGATIVE) Urine Urobilinogen (0.2-1.0) mg/dL Ur Leukocyte Esterase (NEGATIVE) Urine RBC /HPF Urine WBC (0-5/HPF) /HPF Ur Epithelial Cells (NOT SEEN) /HPF Amorphous Sediment (NOT SEEN) /HPF Urine Bacteria (0-FEW/HPF) /HPF Urine Mucus (NOT SEEN) /LPF Salicylates < 2.8 L (2.8-20(Therapeutic)) mg/dL Urine Opiates Screen (NEGATIVE) Ur Oxycodone Screen (NEGATIVE) Urine Methadone Screen (NEGATIVE) Acetaminophen 0 L (10-30 (Therapeutic)) ug/mL Ur Barbiturates Screen (NEGATIVE) U Tricyclic Antidepress (NEGATIVE) Ur Phencyclidine Scrn (NEGATIVE) Ur Amphetamine Screen (NEGATIVE) U Methamphetamines Scrn (NEGATIVE) Urine MDMA Screen (NEGATIVE) U Benzodiazepines Scrn (NEGATIVE) Urine Cocaine Screen (NEGATIVE) U Marijuana (THC) Screen (NEGATIVE) Ethyl Alcohol < 3 (0) mg/dL 05/18/19 05/18/19 05/18/19 Range/Units 14:15 15:44 15:44 WBC (5.0-10.0) 10^3/uL RBC (4.6-6.2) 10^6/uL Hgb (14.0-18.0) g/dL Hct (40.0-54.0) % MCV (80-100) fL MCH (27.0-34.0) pg MCHC (33.0-35.0) g/dL Plt Count (150-450) 10^3/uL Neut % (Auto) (42.2-75.2) % Lymph % (Auto) (20.5-50.1) % [place] % (Auto) (2-8) % Eos % (Auto) (1.0-3.0) % Baso % (Auto) (0.0-1.0) % Sodium 140 (136-145) mmol/L Potassium 3.6 (3.5-5.1) mmol/L Chloride 100 (98-107) mmol/L Carbon Dioxide 26 (21-32) mmol/L Anion Gap 17.6 H (7-13) mEq/L BUN 11 (7-18) mg/dL Creatinine 0.82 (0.70-1.30) mg/dL Est Cr Clr Drug Dosing 107.74 mL/min Estimated GFR (MDRD) > 60 BUN/Creatinine Ratio 13.4 (No establ ref range) Glucose 103 H (74-99) mg/dL Calcium 8.3 L (8.5-10.1) mg/dL Phosphorus (2.6-4.7) mg/dL Magnesium (1.8-2.4) mg/dL Total Bilirubin 0.3 (0.2-1.0) mg/dL AST 31 (15-37) U/L ALT 62 (16-63) U/L Alkaline Phosphatase 116 (46-116) U/L Total Protein 6.9 (6.4-8.2) g/dL Albumin 3.6 (3.4-5.0) g/dL Globulin 3.3 Albumin/Globulin Ratio 1.1 Urine Color Yellow (YELLOW) Urine Appearance Slightly cloudy (CLEAR) Urine pH 8.5 (5.0-9.0) Ur Specific [place] 1.020 (1.005-1.030) Urine Protein Trace H (NEGATIVE) Urine Glucose (UA) Negative (NEGATIVE) Urine Ketones Negative (NEGATIVE) Urine Occult Blood Negative (NEGATIVE) Urine Nitrite Negative (NEGATIVE) Urine Bilirubin Negative (NEGATIVE) Urine Urobilinogen 0.2 (0.2-1.0) mg/dL Ur Leukocyte Esterase Negative (NEGATIVE) Urine RBC 0-5 /HPF Urine WBC 0-5 (0-5/HPF) /HPF Ur Epithelial Cells Rare (NOT SEEN) /HPF Amorphous Sediment Moderate (NOT SEEN) /HPF Urine Bacteria Rare (0-FEW/HPF) /HPF Urine Mucus Few H (NOT SEEN) /LPF Salicylates (2.8-20(Therapeutic)) mg/dL Urine Opiates Screen Negative (NEGATIVE) Ur Oxycodone Screen Negative (NEGATIVE) Urine Methadone Screen Negative (NEGATIVE) Acetaminophen (10-30 (Therapeutic)) ug/mL Ur Barbiturates Screen Negative (NEGATIVE) U Tricyclic Antidepress Negative (NEGATIVE) Ur Phencyclidine Scrn Negative (NEGATIVE) Ur Amphetamine Screen Negative (NEGATIVE) U Methamphetamines Scrn Positive H (NEGATIVE) Urine MDMA Screen Negative (NEGATIVE) U Benzodiazepines Scrn Positive H (NEGATIVE) Urine Cocaine Screen Negative (NEGATIVE) U Marijuana (THC) Screen Negative (NEGATIVE) Ethyl Alcohol (0) mg/dL 05/19/19 05/19/19 Range/Units 06:05 06:05 WBC 5.3 (5.0-10.0) 10^3/uL RBC 4.23 L (4.6-6.2) 10^6/uL Hgb 12.2 L (14.0-18.0) g/dL Hct 36.1 L (40.0-54.0) % MCV 85.3 (80-100) fL MCH 28.8 (27.0-34.0) pg MCHC 33.8 (33.0-35.0) g/dL Plt Count 242 (150-450) 10^3/uL Neut % (Auto) (42.2-75.2) % Lymph % (Auto) (20.5-50.1) % [place] % (Auto) (2-8) % Eos % (Auto) (1.0-3.0) % Baso % (Auto) (0.0-1.0) % Sodium 141 (136-145) mmol/L Potassium 3.5 (3.5-5.1) mmol/L Chloride 104 (98-107) mmol/L Carbon Dioxide 27 (21-32) mmol/L Anion Gap 13.5 H (7-13) mEq/L BUN 12 (7-18) mg/dL Creatinine 0.67 L (0.70-1.30) mg/dL Est Cr Clr Drug Dosing 136.30 mL/min Estimated GFR (MDRD) > 60 BUN/Creatinine Ratio (No establ ref range) Glucose 97 (74-99) mg/dL Calcium 7.8 L (8.5-10.1) mg/dL Phosphorus 4.1 (2.6-4.7) mg/dL Magnesium 2.0 (1.8-2.4) mg/dL Total Bilirubin (0.2-1.0) mg/dL AST (15-37) U/L ALT (16-63) U/L Alkaline Phosphatase (46-116) U/L Total Protein (6.4-8.2) g/dL Albumin (3.4-5.0) g/dL Globulin Albumin/Globulin Ratio Urine Color (YELLOW) Urine Appearance (CLEAR) Urine pH (5.0-9.0) Ur Specific [place] (1.005-1.030) Urine Protein (NEGATIVE) Urine Glucose (UA) (NEGATIVE) Urine Ketones (NEGATIVE) Urine Occult Blood (NEGATIVE) Urine Nitrite (NEGATIVE) Urine Bilirubin (NEGATIVE) Urine Urobilinogen (0.2-1.0) mg/dL Ur Leukocyte Esterase (NEGATIVE) Urine RBC /HPF Urine WBC (0-5/HPF) /HPF Ur Epithelial Cells (NOT SEEN) /HPF Amorphous Sediment (NOT SEEN) /HPF Urine Bacteria (0-FEW/HPF) /HPF Urine Mucus (NOT SEEN) /LPF Salicylates (2.8-20(Therapeutic)) mg/dL Urine Opiates Screen (NEGATIVE) Ur Oxycodone Screen (NEGATIVE) Urine Methadone Screen (NEGATIVE) Acetaminophen (10-30 (Therapeutic)) ug/mL Ur Barbiturates Screen (NEGATIVE) U Tricyclic Antidepress (NEGATIVE) Ur Phencyclidine Scrn (NEGATIVE) Ur Amphetamine Screen (NEGATIVE) U Methamphetamines Scrn (NEGATIVE) Urine MDMA Screen (NEGATIVE) U Benzodiazepines Scrn (NEGATIVE) Urine Cocaine Screen (NEGATIVE) U Marijuana (THC) Screen (NEGATIVE) Ethyl Alcohol (0) mg/dL Med Orders - Current: Current Medications Acetaminophen (Tylenol) 650 mg PO Q4H PRN PRN Reason: Pain (Mild 1-3)/fever Carbamazepine (Tegretol Tab) 200 mg PO BID [facility] Last Admin: 05/19/19 08:57 Dose: 200 mg Folic Acid (Folic Acid) 1 mg PO BEDTIME [facility] Last Admin: 05/18/19 21:03 Dose: 1 mg Heparin Sodium (Porcine) (Heparin Sodium) 5,000 units SUBCUT Q8HR [facility] Last Admin: 05/19/19 05:32 Dose: Not Given Potassium Chloride/Sodium Chloride (Normal Saline With 20 Meq Kcl) 1,000 mls @ 150 mls/hr IV ASDIRECTED [facility] Last Admin: 05/19/19 04:49 Dose: 150 mls/hr Ibuprofen (Motrin) 400 mg PO Q6H PRN PRN Reason: Pain (moderate 4-6) Ketorolac Tromethamine (Toradol) 30 mg IM Q6H PRN PRN Reason: Pain (severe 7-10) Lorazepam (Ativan) 0 mg IVPUSH Q1H PRN; Protocol PRN Reason: [facility] protocol Last Admin: 05/19/19 08:57 Dose: 1 mg Lorazepam (Ativan) 1 mg PO Q1H PRN PRN Reason: [facility] Multivitamins (Thera) 1 each PO BEDTIME [facility] Last Admin: 05/18/19 21:03 Dose: 1 each Ondansetron HCl (Zofran Odt) 4 mg PO Q6H PRN PRN Reason: nausea, able to take PO Ondansetron HCl (Zofran) 4 mg IVPUSH Q4H PRN PRN Reason: Nausea/Vomiting Pantoprazole Sodium (Protonix) 40 mg PO BEDTIME [facility] Last Admin: 05/18/19 21:03 Dose: 40 mg Thiamine HCl (Vitamin B-1) 100 mg PO BEDTIME [facility] Last Admin: 05/18/19 21:02 Dose: 100 mg Zolpidem Tartrate (Ambien) 5 mg PO BEDTIME PRN PRN Reason: Sleep Discontinued Medications Multivitamins/Minerals 10 ml/Folic Acid 1 mg/ Thiamine HCl 100 mg/ Lactated Ringer's 1,011.2 mls @ 999 mls/hr IV ONETIME ONE Stop: 05/18/19 14:57 Last Admin: 05/18/19 14:28 Dose: 999 mls/hr Ondansetron HCl (Zofran) 4 mg IVPUSH ONETIME ONE Stop: 05/18/19 14:25 Last Admin: 05/18/19 14:36 Dose: 4 mg - Exam General: Reports: Alert, Oriented Neck: Reports: Supple Lungs: Reports: Clear to Auscultation, Normal Respiratory Effort Cardiovascular: Reports: Regular Rate, Regular Rhythm GI/Abdominal Exam: Normal Bowel Sounds, Soft, Non-Tender Extremities: No Pedal Edema Skin: Reports: Warm, Dry Neurological: Reports: No New Focal Deficit, Other (no tremor)
== END 2019-05-19 10:27 | disposition home or self-care (01) ==
LOC: DL.ED 14:29 → DL.MS 15:12
PROVIDERS: ADMIT Internal Medicine; ATTEND Internal Medicine
DX: F10.232 Alcohol dependence with withdrawal with perceptual disturbance (principal); R11.2 Nausea with vomiting, unspecified; G40.909 Epilepsy, unspecified, not intractable, without status epilepticus; F41.9 Anxiety disorder, unspecified; F17.210 Nicotine dependence, cigarettes, uncomplicated; Z88.0 Allergy status to penicillin; Z88.1 Allergy status to other antibiotic agents; Z88.8 Allergy status to other drugs, medicaments and biological substances; Y90.0 Blood alcohol level of less than 20 mg/100 ml; Z79.899 Other long term (current) drug therapy
CPT/HCPCS: 36415; 80048; 80053; 80305; 80307; 81001; 83735; 84100; 85025; 85027; 96365; 96375; 99285; A9270; J1644; J2060; J2405; J3411; J3480; J7120; 96361; 96372; 96376; G0378; J3490

== ENCOUNTER 2019-10-12 10:28 | Inpatient (IN) | payer MEDICAID ==
--- NOTE | 2019-10-12 11:09 | EDM.PDOCBH ---
ED HPI GENERAL MEDICAL PROBLEM - General Chief Complaint: Drug or Alcohol Abuse Stated Complaint: ALCOHOL WITHDRAWALS Time Seen by Provider: 10/12/19 10:50 Source of Information: Reports: Patient History Limitations: Reports: No Limitations - History of Present Illness INITIAL COMMENTS - FREE TEXT/NARRATIVE: This 48 yo male patient was sent to the ED from the [facility] by [facility] due to alcohol withdrawals. The patient reports his last drink was yesterday at about 0800, but the patient reports he had been drinking for the past 5 days. The patient reports he woke up this morning shaking due to alcohol withdrawals. The patient reports he is ready to quit drinking alcohol due to the of a family member from drinking. The patient reports increased paraspinal lower back pain due to the shaking. The patient denies any additional drug use. Onset: Today Duration: Constant Location: Reports: Generalized Quality: Reports: Other Severity: Moderate Improves with: Reports: None Worsens with: Reports: None Context: Reports: Other Associated Symptoms: Reports: Weakness Back Pain Score (Numeric/FACES): 5 - Related Data Allergies Allergy/AdvReac Type Severity Reaction Status Date / Time ertapenem Allergy Rash Verified 10/12/19 10:43 fluoxetine Allergy Cannot Verified 10/12/19 10:43 Remember Penicillins Allergy Hives Verified 10/12/19 10:43 Home Meds: Home Meds carBAMazepine [Carbamazepine] 200 mg PO BID 10/16/17 [History] Folic Acid 1 mg PO BEDTIME #14 tablet 05/19/19 [Rx] LORazepam [Ativan] 1 mg PO Q4H PRN #7 tablet 05/19/19 [Rx] Multivitamin [Multi-Day Vitamins] 1 tab PO DAILY #30 tablet 05/19/19 [Rx] Thiamine [Vitamin B-1] 100 mg PO BEDTIME #14 tablet 05/19/19 [Rx] Past Medical History - Past Health History Medical/Surgical History: Denies Medical/Surgical History HEENT History: Reports: Hard of Hearing, Impaired Vision, None 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 Cardiovascular History: Reports: None Respiratory History: Reports: None Gastrointestinal History: Reports: GI Bleed, PUD Other Gastrointestinal History: Esophageal Varaces Genitourinary History: Reports: None Other Genitourinary History: increased frequency Musculoskeletal History: Reports: None Neurological History: Reports: Seizure Other Neuro History: alcohol seizures Psychiatric History: Reports: Addiction, Anxiety Endocrine/Metabolic History: Reports: None Hematologic History: Reports: None Immunologic History: Reports: None Oncologic (Cancer) History: Reports: None Dermatologic History: Reports: Cellulitis - Infectious Disease History Infectious Disease History: Reports: None - Past Surgical History Head Surgeries/Procedures: Reports: None Musculoskeletal Surgical History: Reports: Arthroscopic Knee, Shoulder Surgery Social & Family History - Family History Family Medical History: Noncontributory - Caffeine Use Caffeine Use: Reports: Coffee, Energy Drinks - Living Situation & Occupation Living situation: Reports: , with Family Occupation: Unemployed ED ROS GENERAL - Review of Systems Review Of Systems: Comprehensive ROS is negative, except as noted in HPI. ED EXAM, BEHAVIORAL HEALTH - Physical Exam Exam: See Below Exam Limited By: No Limitations General Appearance: Alert, WD/WN, Moderate Distress Eye Exam: Bilateral Eye: EOMI, Normal Inspection, PERRL Ears: Normal External Exam, Normal Canal, Hearing Grossly Normal, Normal TMs Nose: Normal Inspection, Normal Mucosa, No Blood Throat/Mouth: Normal Inspection, Normal Lips, Normal Teeth, Normal Gums, Normal Oropharynx, Normal Voice, No Airway Compromise Head: Atraumatic, Normocephalic Neck: Normal Inspection, Supple, Non-Tender, Full Range of Motion Respiratory/Chest: No Respiratory Distress, Lungs Clear, Normal Breath Sounds, No Accessory Muscle Use, Chest Non-Tender Cardiovascular: Normal Peripheral Pulses, Regular Rate, Rhythm, No Edema, No Gallop, No JVD, No Murmur, No Rub GI/Abdominal: Normal Bowel Sounds, Soft, Non-Tender, No Organomegaly, No Distention, No Abnormal Bruit, No Mass (Male) Exam: Deferred Rectal (Males) Exam: Deferred Back Exam: Paraspinal Tenderness Extremities: Normal Inspection, Normal Range of Motion, Non-Tender, Normal Capillary Refill, No Pedal Edema Neurological: Alert, Normal Mood/Affect, CN II-XII Intact, Normal Cognition, Normal Gait, Normal Reflexes, No Motor/Sensory Deficits, Oriented x 3 Psychiatric: Alert, Normal Affect, Normal Cognition, Normal Mood, Oriented Skin Exam: Warm, Dry, Intact, Normal color, No rash COURSE, BEHAVIORAL HEALTH COMP - Course Vital Signs: Last Vital Signs Temp 36.8 C 10/12/19 10:37 Pulse 81 08/17/20 10:37 Resp 18 10/12/19 10:37 BP 138/88 10/12/19 10:37 Pulse Ox 98 10/12/19 10:37 Orders, Labs, Meds: Active Orders 24 hr Category Date Time Status UA W/MICROSCOPIC [URIN] Urgent Lab 10/12/19 11:25 Results Laboratory Tests 10/12/19 10/12/19 Range/Units 11:25 11:25 Urine Color Dark yellow (YELLOW) Urine Appearance Clear (CLEAR) Urine pH 8.5 (5.0-9.0) Ur Specific [place] 1.020 (1.005-1.030) Urine Protein 30 H (NEGATIVE) Urine Glucose (UA) Negative (NEGATIVE) Urine Ketones 15 H (NEGATIVE) Urine Occult Blood Negative (NEGATIVE) Urine Nitrite Negative (NEGATIVE) Urine Bilirubin Negative (NEGATIVE) Urine Urobilinogen 0.2 (0.2-1.0) mg/dL Ur Leukocyte Esterase Negative (NEGATIVE) Urine Opiates Screen Negative (NEGATIVE) Ur Oxycodone Screen Negative (NEGATIVE) Urine Methadone Screen Negative (NEGATIVE) Ur Barbiturates Screen Negative (NEGATIVE) U Tricyclic Antidepress Negative (NEGATIVE) Ur Phencyclidine Scrn Negative (NEGATIVE) Ur Amphetamine Screen Negative (NEGATIVE) U Methamphetamines Scrn Positive H (NEGATIVE) Urine MDMA Screen Negative (NEGATIVE) U Benzodiazepines Scrn Positive H (NEGATIVE) Urine Cocaine Screen Negative (NEGATIVE) U Marijuana (THC) Screen Negative (NEGATIVE) Departure - Departure Time of Disposition: 11:54 Disposition: Admitted As Inpatient 67 Condition: Fair Clinical Impression: Alcohol withdrawal Qualifiers: Complication of substance-induced condition: with perceptual disturbance Qualified Code(s): F10.232 - Alcohol dependence with withdrawal with perceptual disturbance - Discharge Information *PRESCRIPTION DRUG MONITORING PROGRAM REVIEWED*: Not Applicable *COPY OF PRESCRIPTION DRUG MONITORING REPORT IN PATIENT DIPTI: Not Applicable Care Plan Goals: Discussed the patient's history, examination, lab results and treatments with the Dr. Oneal. Dr. Oneal accepted the patient for continued evaluation and management as an inpatient at [facility]. Sepsis Event Note (ED) - Evaluation Sepsis Screening Result: No Definite Risk - Focused Exam Vital Signs: Vital Signs Temp Pulse Resp BP Pulse Ox 10/12/19 10:37 36.8 C 81 18 138/88 98 - My Orders Last 24 Hours: My Active Orders 10/12/19 11:25 UA W/MICROSCOPIC [URIN] Urgent - Assessment/Plan Last 24 Hours: My Active Orders 10/12/19 11:25 UA W/MICROSCOPIC [URIN] Urgent
[2019-10-12] MEDS ORDERED: LORazepam 2 MG/ML SDV IVPUSH PRN (12:29)
[2019-10-12] MEDS ORDERED: Docusate Sodium 100 MG Cap PO PRN (12:32)
[2019-10-12] MEDS: LORazepam 1 MG Tab PO PRN ×3 (12:46→20:43)
[2019-10-12 13:33] LABS: ANION GAP 12.3 mEq/L (7-13); CHLORIDE,CL 102 mmol/L (98-107); SODIUM,NA 140 mmol/L (136-145)
[2019-10-12] MEDS ORDERED: Potassium Chloride 10 MEQ Tab.ER PO ONE (13:44)
[2019-10-12] MEDS: Sodium Chloride 0.9% 1,000 ML IV SCH (16:38)
--- NOTE | 2019-10-12 17:22 | HP ---
CHIEF COMPLAINT: Alcohol withdrawals. HISTORY OF PRESENT ILLNESS: The patient is a 48-year-old male who was admitted through the emergency room because the patient was brought in by [facility] ambulance due to alcohol withdrawals. The patient mentioned that he has been drinking steadily for the last 5 days and quit drinking about 8 o'clock yesterday morning, and this morning he woke up having shakes due to alcohol withdrawal and he is also complaining of flank pain bilaterally. The patient denies though any fever, headache, chest pain, shortness of breath, abdominal pain, nor any other complaints. Because of the patient's history of seizure from alcohol withdrawal, the patient was then admitted for further evaluation and management. PAST MEDICAL HISTORY: Remarkable for seizures, anxiety, esophageal varices, and alcohol abuse. FAMILY HISTORY: Noncontributory. SOCIAL HISTORY: The patient is . Smokes about a pack per day and drinks alcohol regularly. He denies any illicit drug use. HOME MEDICATIONS: Carbamazepine 200 mg p.o. b.i.d., folic acid 1 mg at bedtime, lorazepam p.r.n., multivitamins, and thiamine. REVIEW OF SYSTEMS: As in HPI. The rest of the review of systems is negative. ALLERGIES: Ertapenem, fluoxetine, and penicillin. PHYSICAL EXAMINATION: General: The patient is alert and oriented. He is complaining of being shaky. Vital Signs: Blood pressure is 138/88, pulse of 81, respirations 18, temperature of 98.3, saturation is 98% on room air. SHEENT: Normocephalic. There are pink palpebral conjunctivae. Sclerae anicteric. No JVD. No lymphadenopathy. Neck: Supple. Heart: Regular rate and rhythm. Normal S1 and S2. No gallops. No rubs. Lungs: Equal bilaterally. No crackles. No wheezing. Abdomen: Soft, nontender. Bowel sounds positive. Examination of the L-spine area is negative for any significant reproducible tenderness. Extremities: Negative for any pedal edema. No calf tenderness or gross deformities. Neurologic: Negative for any lateralizing signs. LABORATORY WORKUP: Urinalysis: Has 13 mg/dL of protein, 15 ketones, and many mucus. Otherwise, unremarkable. Urine tox screen is positive for methamphetamine and positive for benzodiazepine. ADMITTING DIAGNOSES: 1. Alcohol withdrawal. 2. Alcohol abuse. 3. History of seizures. 4. Tobacco habituation. 5. Previous COVID positive (September 18, 2019). TREATMENT PLAN: The patient is going to be admitted to acute care. He will initially be admitted to isolation and SARS COVID-19 test will be done, and he will be on DT protocol, and he will also be placed on nicotine patch for his tobacco habituation. IV fluids will be started and he will be on DT protocol and the rest of the management as necessary. The patient is full code. [facility] /[id number]
[2019-10-12] MEDS: Multivitamins, Therapeutic with Minerals Tab PO SCH (20:42)
[2019-10-12] MEDS: Folic Acid 1 MG Tab PO SCH (20:42)
[2019-10-12] MEDS: Acetaminophen 325 MG Tab PO PRN (20:43)
[2019-10-12] MEDS: Thiamine 100 MG Tab PO SCH (20:43)
[2019-10-13] MEDS: Sodium Chloride 0.9% 1,000 ML IV SCH ×3 (00:50→16:39)
[2019-10-13] MEDS: LORazepam 1 MG Tab PO PRN ×2 (00:51→05:12)
[2019-10-13] MEDS: Ondansetron 4 MG Tab.DIS PO PRN (05:12)
[2019-10-13 06:54] LABS: ANION GAP 12.5 mEq/L (7-13); CHLORIDE,CL 106 mmol/L (98-107); SODIUM,NA 141 mmol/L (136-145)
[2019-10-13] MEDS: Enoxaparin 40 MG/0.4 ML Syringe SUBCUT SCH ×2 (09:02→09:05)
[2019-10-13] MEDS: Nicotine 21 MG/24 Hr Patch TRDERM SCH (09:02)
[2019-10-13] MEDS: Acetaminophen 325 MG Tab PO PRN (09:47)
[2019-10-13] MEDS: LORazepam 2 MG/ML SDV IVPUSH PRN ×4 (09:48→18:42)
--- NOTE | 2019-10-13 10:23 | PN ---
DATE: 10/13/2019 SUBJECTIVE: The patient still is having some withdrawal symptoms from alcohol, but otherwise no other significant complaints. He has been getting the lorazepam p.r.n. LABORATORY WORKUP: This morning, Chem-6 is unremarkable and potassium now is within normal limits and magnesium level is 1.7, which is still slightly low, but better than yesterday. OBJECTIVE: Vital Signs: Blood pressure is 122/79, pulse of 79, respirations 20, temperature of 97.9, saturation is 99% on room air. Heart: Regular rate and rhythm. Normal S1 and S2. No gallops. No rubs. Lungs: Equal bilaterally. No crackles. No wheezing. Abdomen: Soft, nontender. Bowel sounds positive. Extremities: Negative for any pedal edema. No calf tenderness. MEDICATIONS: Reviewed. PLAN: We will continue with his present management. We will also continue with the IV fluids. [facility] /[id number]
[2019-10-13] MEDS: LORazepam 0.5 MG Tab PO PRN ×5 (13:14→22:44)
[2019-10-13] MEDS ORDERED: carBAMazepine 200 MG Tab PO SCH (15:30)
[2019-10-13] MEDS: Acetaminophen/oxyCODONE 325-5 MG Tab PO PRN (16:29)
[2019-10-13] MEDS ORDERED: carBAMazepine 200 MG Tab PO ONE (18:50)
[2019-10-13] MEDS: Multivitamins, Therapeutic with Minerals Tab PO SCH (20:42)
[2019-10-13] MEDS: Thiamine 100 MG Tab PO SCH (20:42)
[2019-10-13] MEDS: Folic Acid 1 MG Tab PO SCH (20:42)
[2019-10-13] MEDS: diphenhydrAMINE 50 MG Cap PO PRN (20:42)
[2019-10-13] MEDS ORDERED: Haloperidol Lactate 5 MG/ML SDV IVPUSH ONE (22:51)
[2019-10-14] MEDS ORDERED: Haloperidol Lactate 5 MG/ML SDV IVPUSH ONE ×2 (01:42→22:24)
[2019-10-14] MEDS: Ondansetron 4 MG Tab.DIS PO PRN ×2 (01:53→22:35)
[2019-10-14] MEDS: LORazepam 2 MG/ML SDV IVPUSH PRN ×4 (01:53→22:33)
[2019-10-14] MEDS: Acetaminophen/oxyCODONE 325-5 MG Tab PO PRN ×4 (01:54→22:35)
[2019-10-14] MEDS ORDERED: Remove Patch (Nicotine) TRDERM SCH (09:00)
--- NOTE | 2019-10-14 09:58 | PN ---
DATE: 10/14/2019 SUBJECTIVE: The patient last night was still having some agitation and the patient received a total dose of 2 mg IV of Haldol, and this is on top of his lorazepam for his alcohol withdrawal. This morning, the patient is sleeping and the patient looks comfortable. OBJECTIVE: Vital Signs: Blood pressure is 129/86, pulse 73, respirations 20, temperature of 98.4, saturation is 98%. Heart: Regular rate and rhythm. Normal S1 and S2. No gallops. No rubs. Lungs: Equal bilaterally. No crackles. No wheezing. Abdomen: Soft, nontender. Bowel sounds positive. PLAN: We will continue with his present management, and the patient's Benadryl and carbamazepine were restarted yesterday. [facility] /[id number]
[2019-10-14] MEDS: Enoxaparin 40 MG/0.4 ML Syringe SUBCUT SCH (10:12)
[2019-10-14] MEDS: carBAMazepine 200 MG Tab PO SCH ×2 (11:47→20:34)
[2019-10-14] MEDS: LORazepam 0.5 MG Tab PO PRN ×6 (11:47→23:41)
[2019-10-14] MEDS: Nicotine 21 MG/24 Hr Patch TRDERM SCH (14:09)
[2019-10-14] MEDS ORDERED: Loperamide 2 MG Cap PO PRN (14:45)
[2019-10-14] MEDS: Multivitamins, Therapeutic with Minerals Tab PO SCH (20:33)
[2019-10-14] MEDS: Folic Acid 1 MG Tab PO SCH (20:33)
[2019-10-14] MEDS: Thiamine 100 MG Tab PO SCH (20:34)
[2019-10-14] MEDS: diphenhydrAMINE 50 MG Cap PO PRN (21:38)
[2019-10-15] MEDS ORDERED: Haloperidol Lactate 5 MG/ML SDV IVPUSH ONE (00:23)
[2019-10-15] MEDS: LORazepam 2 MG/ML SDV IVPUSH PRN (00:30)
[2019-10-15 00:35] VITALS: BP 130/69; PULSE 85
--- NOTE | 2019-10-20 02:07 | DISCH ---
FINAL DIAGNOSES: 1. Alcohol withdrawal. 2. Alcohol abuse. 3. History of seizure. 4. Tobacco habituation. BRIEF HISTORY OF PRESENT ILLNESS: Please see H and P. PERTINENT LABS, X-RAY, AND OTHER TESTS: See H and P. HOSPITAL COURSE: The patient was admitted to acute care. He was placed initially on isolation because of his previous exposure and positive result to [id number] and repeat COVID-19 testing came back negative and so the patient was placed on the regular floor. The patient was placed on DT protocol. He was also given nicotine patch for his tobacco habituation, and the patient did well during the hospitalization and patient decided to sign out AMA. [facility] /[id number]
== END 2019-10-15 01:30 | disposition left against medical advice (07) | DRG 894 ==
LOC: DL.ED 10:28 → DL.MS 11:56
PROVIDERS: ADMIT Internal Medicine; ATTEND Internal Medicine
DX: F10.232 Alcohol dependence with withdrawal with perceptual disturbance (principal); H54.7 Unspecified visual loss; H91.90 Unspecified hearing loss, unspecified ear; Z87.11 Personal history of peptic ulcer disease; I85.00 Esophageal varices without bleeding; F41.9 Anxiety disorder, unspecified; Z88.0 Allergy status to penicillin; Z88.8 Allergy status to other drugs, medicaments and biological substances; Z79.899 Other long term (current) drug therapy; Z09 Encounter for follow-up examination after completed treatment for conditions other than malignant neoplasm; Z86.19 Personal history of other infectious and parasitic diseases
CPT/HCPCS: 36415; 80048; 80053; 80305-QW; 81001; 83735; 85025; 99284; 99285; A9270-GY; J1630; J1650; J2060; J7030; Q0163; U0002

== ENCOUNTER 2019-11-14 05:15 | Emergency (ER) | payer MEDICAID ==
[2019-11-14] MEDS ORDERED: Ondansetron 4 MG/2 ML SDV IVPUSH ONE (05:30)
[2019-11-14] MEDS ORDERED: Sodium Chloride 0.9% 1,000 ML IV SCH (05:30)
[2019-11-14] MEDS ORDERED: Pantoprazole 40 MG Vial IVPUSH ONE (05:37)
--- NOTE | 2019-11-14 05:42 | EDM.PDOC ---
ED HPI GENERAL MEDICAL PROBLEM - General Chief Complaint: Abdominal Pain Stated Complaint: AMBULANCE Time Seen by Provider: 11/14/19 05:41 Source of Information: Reports: Patient History Limitations: Reports: No Limitations - History of Present Illness INITIAL COMMENTS - FREE TEXT/NARRATIVE: last drink yesterday, woke up this AM vomited blood and also poop blood. Epigastric Pain Score (Numeric/FACES): 7 - Related Data Allergies Allergy/AdvReac Type Severity Reaction Status Date / Time ertapenem Allergy Rash Verified 10/12/19 10:43 fluoxetine Allergy Cannot Verified 10/12/19 10:43 Remember Penicillins Allergy Hives Verified 10/12/19 10:43 Home Meds: Home Meds carBAMazepine [Carbamazepine] 200 mg PO BID 10/16/17 [History] Multivitamin [Multi-Day Vitamins] 1 tab PO DAILY #30 tablet 05/19/19 [Rx] diphenhydrAMINE HCL [Diphenhydramine HCl] 50 mg PO BEDTIME PRN 10/12/19 [History] Past Medical History - Past Health History Medical/Surgical History: Denies Medical/Surgical History HEENT History: Reports: Hard of Hearing, Impaired Vision, None 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 Cardiovascular History: Reports: None Respiratory History: Reports: None Gastrointestinal History: Reports: GI Bleed, PUD Other Gastrointestinal History: Esophageal Varaces Genitourinary History: Reports: None Other Genitourinary History: increased frequency Musculoskeletal History: Reports: None Neurological History: Reports: Seizure Other Neuro History: alcohol seizures Psychiatric History: Reports: Addiction, Anxiety Endocrine/Metabolic History: Reports: None Hematologic History: Reports: None Immunologic History: Reports: None Oncologic (Cancer) History: Reports: None Dermatologic History: Reports: Cellulitis - Infectious Disease History Infectious Disease History: Reports: Other (See Below) Other Infectious Disease History: COVID 09-18-19 - Past Surgical History Head Surgeries/Procedures: Reports: None Musculoskeletal Surgical History: Reports: Arthroscopic Knee, Shoulder Surgery Social & Family History - Family History Family Medical History: Noncontributory - Tobacco Use Smoking Status *Q: Current Every Day Smoker Years of Tobacco use: 28 Packs/Tins Daily: 1 Second Hand Smoke Exposure: Yes - Caffeine Use Caffeine Use: Reports: Coffee, Energy Drinks - Alcohol Use Days Per Week of Alcohol Use: 7 Number of Drinks Per Day: 1 Total Drinks Per Week: 7 Date of Last Drink: 11/14/19 - Recreational Drug Use Recreational Drug Use: Yes Recreational Drug Use Frequency: Binges - Living Situation & Occupation Living situation: Reports: , with Family Occupation: Unemployed ED ROS GENERAL - Review of Systems Review Of Systems: Comprehensive ROS is negative, except as noted in HPI. ED EXAM, GI/ABD - Physical Exam Exam: See Below Exam Limited By: No Limitations General Appearance: Alert, WD/WN, Mild Distress, Other (discomfort). No: Active Emesis Ears: Hearing Grossly Normal Throat/Mouth: Normal Voice, No Airway Compromise Head: Atraumatic Neck: Non-Tender, Full Range of Motion Respiratory/Chest: No Respiratory Distress Cardiovascular: Regular Rate, Rhythm GI/Abdominal Exam: Tender, Other (epiG region). No: Distended, Guarding, Rigid, Rebound (Male) Exam: Deferred Rectal (Males) Exam: Black Stool Neurological: Alert, Oriented, Normal Cognition, Normal Gait, No Motor/Sensory Deficits Psychiatric: Flat Affect Skin Exam: Warm, Dry, Normal Color Lymphatic: No Adenopathy Course - Vital Signs Last Recorded V/S: Last Vital Signs Temp 36.9 C 11/14/19 05:23 Pulse 107 H 11/14/19 05:23 Resp 16 11/14/19 05:23 BP 123/80 11/14/19 05:23 Pulse Ox 100 11/14/19 05:23 - Orders/Labs/Meds Orders: Active Orders 24 hr Category Date Time Status DRUG SCREEN URINE BIORAD [URCHEM] Stat Lab 11/14/19 05:28 Ordered Octreotide [SandoSTATIN] Med 11/14/19 06:56 Once 50 mcg IVPUSH ONETIME ONE Sodium Chloride 0.9% [Normal Saline] 1,000 ml Med 11/14/19 05:30 Active IV ASDIRECTED cefTRIAXone [Rocephin] 1,000 mg Med 11/14/19 06:56 Ordered Sodium Chloride 0.9% [Normal Saline] 100 ml IV ONETIME ED Antiemetic Medication Reflex [OM.PC] Stat Oth 11/14/19 05:29 Ordered Medication Orders Sodium Chloride (Normal Saline) 1,000 mls @ 999 mls/hr IV ASDIRECTED DAYANARA Last Admin: 11/14/19 05:39 Dose: 999 mls/hr Documented by: SCHODAW Labs: Laboratory Tests 11/14/19 11/14/19 11/14/19 Range/Units 05:25 05:25 05:25 WBC 5.8 (5.0-10.0) 10^3/uL RBC 2.92 L (4.6-6.2) 10^6/uL Hgb 8.6 L D (14.0-18.0) g/dL Hct 26.0 L (40.0-54.0) % MCV 89.0 D (80-100) fL MCH 29.5 (27.0-34.0) pg MCHC 33.1 (33.0-35.0) g/dL Plt Count 285 (150-450) 10^3/uL Neut % (Auto) 66.9 (42.2-75.2) % Lymph % (Auto) 24.3 (20.5-50.1) % [place] % (Auto) 6.6 (2-8) % Eos % (Auto) 1.7 (1.0-3.0) % Baso % (Auto) 0.5 (0.0-1.0) % PT (9.0-12.0) SEC INR (0.9-1.2) Sodium 141 (136-145) mmol/L Potassium 3.9 (3.5-5.1) mmol/L Chloride 107 (98-107) mmol/L Carbon Dioxide 28 (21-32) mmol/L Anion Gap 9.9 (7-13) mEq/L BUN 23 H (7-18) mg/dL Creatinine 0.73 (0.70-1.30) mg/dL Est Cr Clr Drug Dosing 123.75 mL/min Estimated GFR (MDRD) > 60 BUN/Creatinine Ratio 31.5 (No establ ref range) Glucose 90 (74-99) mg/dL Lactic Acid 1.3 (0.4-2.0) mmol/L Calcium 7.7 L (8.5-10.1) mg/dL Total Bilirubin 0.1 L (0.2-1.0) mg/dL AST 15 (15-37) U/L ALT 28 (16-63) U/L Alkaline Phosphatase 81 (46-116) U/L Troponin I < 0.017 (0.000-0.056) ng/mL Total Protein 5.4 L (6.4-8.2) g/dL Albumin 2.6 L (3.4-5.0) g/dL Globulin 2.8 Albumin/Globulin Ratio 0.93 Amylase 34 (25-115) U/L Lipase 102 (73-393) U/L Ethyl Alcohol < 3 (0) mg/dL 11/14/19 Range/Units 05:25 WBC (5.0-10.0) 10^3/uL RBC (4.6-6.2) 10^6/uL Hgb (14.0-18.0) g/dL Hct (40.0-54.0) % MCV (80-100) fL MCH (27.0-34.0) pg MCHC (33.0-35.0) g/dL Plt Count (150-450) 10^3/uL Neut % (Auto) (42.2-75.2) % Lymph % (Auto) (20.5-50.1) % [place] % (Auto) (2-8) % Eos % (Auto) (1.0-3.0) % Baso % (Auto) (0.0-1.0) % PT 9.3 (9.0-12.0) SEC INR 1.0 (0.9-1.2) Sodium (136-145) mmol/L Potassium (3.5-5.1) mmol/L Chloride (98-107) mmol/L Carbon Dioxide (21-32) mmol/L Anion Gap (7-13) mEq/L BUN (7-18) mg/dL Creatinine (0.70-1.30) mg/dL Est Cr Clr Drug Dosing mL/min Estimated GFR (MDRD) BUN/Creatinine Ratio (No establ ref range) Glucose (74-99) mg/dL Lactic Acid (0.4-2.0) mmol/L Calcium (8.5-10.1) mg/dL Total Bilirubin (0.2-1.0) mg/dL AST (15-37) U/L ALT (16-63) U/L Alkaline Phosphatase (46-116) U/L Troponin I (0.000-0.056) ng/mL Total Protein (6.4-8.2) g/dL Albumin (3.4-5.0) g/dL Globulin Albumin/Globulin Ratio Amylase (25-115) U/L Lipase (73-393) U/L Ethyl Alcohol (0) mg/dL Meds: Medications Generic Name Dose Route Start Last Admin Trade Name Claudine PRN Reason Stop Dose Admin Sodium Chloride 1,000 mls @ 999 mls/hr 11/14/19 05:30 11/14/19 05:39 Normal Saline IV 999 mls/hr ASDIRECTED DAYANARA Administration Discontinued Medications Generic Name Dose Route Start Last Admin Trade Name Claudine PRN Reason Stop Dose Admin Ondansetron HCl 4 mg 11/14/19 05:30 11/14/19 05:39 Zofran IVPUSH 11/14/19 05:31 4 mg ONETIME ONE Administration Pantoprazole Sodium 80 mg 11/14/19 05:37 11/14/19 05:56 Protonix Iv IVPUSH 11/14/19 05:38 80 mg .BOLUS ONE Administration - Re-Assessments/Exams Free Text/Narrative Re-Assessment/Exam: 11/14/19 06:[address] Sommer @ [facility] who kindly accepted pt. Departure - Departure Time of Disposition: 07:00 Disposition: DC/Tfer to Acute Hospital 02 Condition: Fair Clinical Impression: Alcohol abuse, Upper GI bleed Abdominal pain Qualifiers: Abdominal location: epigastric Qualified Code(s): R10.13 - Epigastric pain Esophageal varices with bleeding Qualifiers: Esophageal varices type: unspecified type Qualified Code(s): I85.01 - Esophageal varices with bleeding - Discharge Information Forms: Interfacility Transfer [facility] Sepsis Event Note (ED) - Evaluation Sepsis Screening Result: No Definite Risk - Focused Exam Vital Signs: Vital Signs Temp Pulse Resp BP Pulse Ox 11/14/19 05:23 36.9 C 107 H 16 123/80 100 - My Orders Last 24 Hours: My Active Orders 11/14/19 05:28 DRUG SCREEN URINE BIORAD [URCHEM] Stat 11/14/19 05:29 ED Antiemetic Medication Reflex [OM.PC] Stat 11/14/19 05:30 Sodium Chloride 0.9% [Normal Saline] 1,000 ml IV ASDIRECTED 11/14/19 06:56 Octreotide [SandoSTATIN] 50 mcg IVPUSH ONETIME ONE cefTRIAXone [Rocephin] 1,000 mg Sodium Chloride 0.9% [Normal Saline] 100 ml IV ONETIME - Assessment/Plan Last 24 Hours: My Active Orders 11/14/19 05:28 DRUG SCREEN URINE BIORAD [URCHEM] Stat 11/14/19 05:29 ED Antiemetic Medication Reflex [OM.PC] Stat 11/14/19 05:30 Sodium Chloride 0.9% [Normal Saline] 1,000 ml IV ASDIRECTED 11/14/19 06:56 Octreotide [SandoSTATIN] 50 mcg IVPUSH ONETIME ONE cefTRIAXone [Rocephin] 1,000 mg Sodium Chloride 0.9% [Normal Saline] 100 ml IV ONETIME
[2019-11-14 06:00] LABS: ANION GAP 9.9 mEq/L (7-13); CHLORIDE,CL 107 mmol/L (98-107); SODIUM,NA 141 mmol/L (136-145)
[2019-11-14] MEDS ORDERED: Octreotide 100 MCG/ML SDV IVPUSH ONE (06:56)
[2019-11-14 14:40] VITALS: BP 128/71; PULSE 76
[2019-11-14] MEDS ORDERED: LORazepam 2 MG/ML SDV IVPUSH ONE (14:47)
[2019-11-14] MEDS ORDERED: Flumazenil 0.1 MG/ML 5 ML MDV IVPUSH PRN (14:47)
== END 2019-11-14 15:18 ==
LOC: DL.ED 05:15
DX: I85.01 Esophageal varices with bleeding (principal); K92.2 Gastrointestinal hemorrhage, unspecified; F17.210 Nicotine dependence, cigarettes, uncomplicated; R56.9 Unspecified convulsions; F10.10 Alcohol abuse, uncomplicated; Z88.8 Allergy status to other drugs, medicaments and biological substances; Z88.0 Allergy status to penicillin; Z79.899 Other long term (current) drug therapy
CPT/HCPCS: 36415; 80053; 80305; 80307; 82150; 82272; 83605; 83690; 84484; 85014; 85018; 85025; 85610; 87635; 96361; 96365; 96375; 99285; C9113; J0696; J2060; J2354; J2405; J7030; J7050; 99284; U0002

== ENCOUNTER 2020-12-18 18:30 | Emergency (ER) | payer MEDICAID ==
[2020-12-18] MEDS ORDERED: Lactated Ringers 1,000 ML IV ONE (18:40)
[2020-12-18] MEDS ORDERED: Ondansetron 4 MG/2 ML SDV IVPUSH ONE (18:40)
[2020-12-18] MEDS ORDERED: Pantoprazole 40 MG Vial IVPUSH ONE (18:46)
--- NOTE | 2020-12-18 18:47 | EDM.PDOC ---
<Tejinder Padilla - Last Filed: 12/18/20 18:41> ED HPI GENERAL MEDICAL PROBLEM - General Stated Complaint: AMBULANCE, ABDOMINAL AND NECK PAIN Time Seen by Provider: 12/18/20 18:35 Source of Information: Reports: Patient, EMS History Limitations: Reports: No Limitations - History of Present Illness INITIAL COMMENTS - FREE TEXT/NARRATIVE: This 50 yo male patient was brought to the ED by [facility] due to increased upper abdominal pain and chest pain. The patient reports his symptoms started yesterday, but have gotten worse today. The patient reports he has a history of stomach ulcers and ran out of his medications about 1 week ago. The patient reports he has been up in [place] drinking hard alcohol for the past 4 days at a wedding. The patient believes he may have seen some blood in his vomit earlier today. The patient reports his current pain is rated at a 8-9/10 at this time. Onset Date: 12/17/20 Duration: Constant Location: Reports: Chest, Abdomen Quality: Reports: Ache, Sharp, Stabbing Severity: Severe Improves with: Reports: None Worsens with: Reports: None Context: Reports: Other Associated Symptoms: Reports: Chest Pain, Nausea/Vomiting, Other - Related Data Allergies Allergy/AdvReac Type Severity Reaction Status Date / Time ertapenem Allergy Rash Verified 10/12/19 10:43 fluoxetine Allergy Cannot Verified 10/12/19 10:43 Remember Penicillins Allergy Hives Verified 10/12/19 10:43 Home Meds: Home Meds carBAMazepine [Carbamazepine] 200 mg PO BID 10/16/17 [History] Multivitamin [Multi-Day Vitamins] 1 tab PO DAILY #30 tablet 05/19/19 [Rx] diphenhydrAMINE HCL [Diphenhydramine HCl] 50 mg PO BEDTIME PRN 10/12/19 [History] Past Medical History - Past Health History Medical/Surgical History: Denies Medical/Surgical History HEENT History: Reports: Hard of Hearing, Impaired Vision, None 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 Cardiovascular History: Reports: None Respiratory History: Reports: None Gastrointestinal History: Reports: GI Bleed, PUD Other Gastrointestinal History: Esophageal Varaces Genitourinary History: Reports: None Other Genitourinary History: increased frequency Musculoskeletal History: Reports: None Neurological History: Reports: Seizure Other Neuro History: alcohol seizures Psychiatric History: Reports: Addiction, Anxiety Endocrine/Metabolic History: Reports: None Hematologic History: Reports: None Immunologic History: Reports: None Oncologic (Cancer) History: Reports: None Dermatologic History: Reports: Cellulitis - Infectious Disease History Infectious Disease History: Reports: Other (See Below) Other Infectious Disease History: COVID 09-18-19 - Past Surgical History Head Surgeries/Procedures: Reports: None Musculoskeletal Surgical History: Reports: Arthroscopic Knee, Shoulder Surgery Social & Family History - Family History Family Medical History: No Pertinent Family History - Caffeine Use Caffeine Use: Reports: Coffee, Energy Drinks - Living Situation & Occupation Living situation: Reports: , with Family Occupation: Unemployed ED ROS GENERAL - Review of Systems Review Of Systems: Comprehensive ROS is negative, except as noted in HPI. ED EXAM, GI/ABD - Physical Exam Exam: See Below Exam Limited By: No Limitations General Appearance: Alert, WD/WN, Moderate Distress Eyes: Bilateral: Normal Appearance, EOMI Ears: Normal External Exam, Normal Canal, Hearing Grossly Normal, Normal TMs Nose: Normal Inspection, Normal Mucosa, No Blood Throat/Mouth: Normal Inspection, Normal Lips, Normal Teeth, Normal Gums, Normal Oropharynx, Normal Voice, No Airway Compromise Head: Atraumatic, Normocephalic Neck: Normal Inspection, Other (Posterior neck pain (patient reports pain has been present for at least a month)) Respiratory/Chest: No Respiratory Distress, Lungs Clear, Normal Breath Sounds, No Accessory Muscle Use, Chest Non-Tender Cardiovascular: Normal Peripheral Pulses, Regular Rate, Rhythm, No Edema, No Gallop, No JVD, No Murmur, No Rub GI/Abdominal Exam: Tender (upper abdominal area) (Male) Exam: Deferred Rectal (Males) Exam: Deferred Back Exam: Normal Inspection, Full Range of Motion, NT Extremities: Normal Inspection, Normal Range of Motion, Non-Tender, Normal Capillary Refill, No Pedal Edema Neurological: Alert, Oriented, CN II-XII Intact, Normal Cognition, Normal Gait, No Motor/Sensory Deficits Psychiatric: Normal Affect, Normal Mood Skin Exam: Warm, Dry, Intact, Normal Color, No Rash Lymphatic: No Adenopathy #1 Interpretation EKG Date: 12/18/20 Time: 18:39 Rhythm: NSR Rate (Beats/Min): 79 [place]: Normal P-Wave: Present QRS: Normal ST-T: Normal QT: Normal Comparison: No Change Departure - Departure Disposition: Home, Self-Care 01 Clinical Impression: Methamphetamine abuse Alcoholic gastritis Qualifiers: Chronicity: acute Gastritis bleeding: without bleeding Qualified Code(s): K29.20 - Alcoholic gastritis without bleeding - Discharge Information Instructions: Gastritis, Adult, [id number], Nausea and Vomiting, Adult, [id number] Forms: ED Department Discharge Additional Instructions: refill ulcer medications bland diet no alcohol don't use meth rest follow up if sx worsen vomiting large amounts bright red blood dizziness <Tere Conner - Last Filed: 12/19/20 06:40> Course - Vital Signs Last Recorded V/S: Last Vital Signs Temp 97.8 F 12/18/20 19:06 Pulse 88 12/18/20 19:06 Resp 20 12/18/20 19:06 BP 152/87 H 12/18/20 19:06 Pulse Ox 97 12/18/20 19:06 - Orders/Labs/Meds Orders: Active Orders 24 hr Category Date Time Status CULTURE BLOOD [BC] Stat Lab 12/18/20 18:50 Received Labs: Laboratory Tests 12/18/20 12/18/20 12/18/20 Range/Units 18:50 18:50 18:50 WBC 7.7 (5.0-10.0) 10^3/uL RBC 4.59 L (4.6-6.2) 10^6/uL Hgb 14.3 D (14.0-18.0) g/dL Hct 41.6 (40.0-54.0) % MCV 90.6 (80-100) fL MCH 31.2 (27.0-34.0) pg MCHC 34.4 (33.0-35.0) g/dL Plt Count 281 (150-450) 10^3/uL Neut % (Auto) 78.6 H (42.2-75.2) % Lymph % (Auto) 14.0 L (20.5-50.1) % [place] % (Auto) 5.3 (2-8) % Eos % (Auto) 1.7 (1.0-3.0) % Baso % (Auto) 0.4 (0.0-1.0) % PT 10.2 (9.0-12.0) SEC INR 1.0 (0.9-1.2) D-Dimer, Quantitative 144 (0-400) ng/mL Sodium 143 (136-145) mmol/L Potassium 3.9 (3.5-5.1) mmol/L Chloride 107 (98-107) mmol/L Carbon Dioxide 27 (21-32) mmol/L Anion Gap 12.9 (7-13) mEq/L BUN 14 (7-18) mg/dL Creatinine 0.79 (0.70-1.30) mg/dL Est Cr Clr Drug Dosing 113.11 mL/min Estimated GFR (MDRD) > 60 BUN/Creatinine Ratio 17.7 (No establ ref range) Glucose 108 H (70-99) mg/dL Lactic Acid (0.4-2.0) mmol/L Calcium 8.4 L (8.5-10.1) mg/dL Magnesium 1.8 (1.8-2.4) mg/dL Total Bilirubin 0.3 (0.2-1.0) mg/dL AST 16 (15-37) U/L ALT 32 (16-63) U/L Alkaline Phosphatase 99 (46-116) U/L Ammonia (11-32) umol/L Troponin I High Sens 6 (<=76) pg/mL Total Protein 6.4 (6.4-8.2) g/dL Albumin 3.1 L (3.4-5.0) g/dL Globulin 3.3 Albumin/Globulin Ratio 0.94 Amylase 35 (25-115) U/L Lipase 132 (73-393) U/L Urine Color (YELLOW) Urine Appearance (CLEAR) Urine pH (5.0-9.0) Ur Specific [place] (1.005-1.030) Urine Protein (NEGATIVE) Urine Glucose (UA) (NEGATIVE) Urine Ketones (NEGATIVE) Urine Occult Blood (NEGATIVE) Urine Nitrite (NEGATIVE) Urine Bilirubin (NEGATIVE) Urine Urobilinogen (0.2-1.0) mg/dL Ur Leukocyte Esterase (NEGATIVE) Salicylates (2.8-20(Therapeutic)) mg/dL Urine Opiates Screen (NEGATIVE) Ur Oxycodone Screen (NEGATIVE) Urine Methadone Screen (NEGATIVE) Acetaminophen 0 L (10-30 (Therapeutic)) ug/mL Ur Barbiturates Screen (NEGATIVE) U Tricyclic Antidepress (NEGATIVE) Ur Phencyclidine Scrn (NEGATIVE) Ur Amphetamine Screen (NEGATIVE) U Methamphetamines Scrn (NEGATIVE) Urine MDMA Screen (NEGATIVE) U Benzodiazepines Scrn (NEGATIVE) Urine Cocaine Screen (NEGATIVE) U Marijuana (THC) Screen (NEGATIVE) Ethyl Alcohol 4 (0) mg/dL 12/18/20 12/18/20 12/18/20 Range/Units 18:50 18:50 18:50 WBC (5.0-10.0) 10^3/uL RBC (4.6-6.2) 10^6/uL Hgb (14.0-18.0) g/dL Hct (40.0-54.0) % MCV (80-100) fL MCH (27.0-34.0) pg MCHC (33.0-35.0) g/dL Plt Count (150-450) 10^3/uL Neut % (Auto) (42.2-75.2) % Lymph % (Auto) (20.5-50.1) % [place] % (Auto) (2-8) % Eos % (Auto) (1.0-3.0) % Baso % (Auto) (0.0-1.0) % PT (9.0-12.0) SEC INR (0.9-1.2) D-Dimer, Quantitative (0-400) ng/mL Sodium (136-145) mmol/L Potassium (3.5-5.1) mmol/L Chloride (98-107) mmol/L Carbon Dioxide (21-32) mmol/L Anion Gap (7-13) mEq/L BUN (7-18) mg/dL Creatinine (0.70-1.30) mg/dL Est Cr Clr Drug Dosing mL/min Estimated GFR (MDRD) BUN/Creatinine Ratio (No establ ref range) Glucose (70-99) mg/dL Lactic Acid 1.5 (0.4-2.0) mmol/L Calcium (8.5-10.1) mg/dL Magnesium (1.8-2.4) mg/dL Total Bilirubin (0.2-1.0) mg/dL AST (15-37) U/L ALT (16-63) U/L Alkaline Phosphatase (46-116) U/L Ammonia 20 (11-32) umol/L Troponin I High Sens (<=76) pg/mL Total Protein (6.4-8.2) g/dL Albumin (3.4-5.0) g/dL Globulin Albumin/Globulin Ratio Amylase (25-115) U/L Lipase (73-393) U/L Urine Color (YELLOW) Urine Appearance (CLEAR) Urine pH (5.0-9.0) Ur Specific [place] (1.005-1.030) Urine Protein (NEGATIVE) Urine Glucose (UA) (NEGATIVE) Urine Ketones (NEGATIVE) Urine Occult Blood (NEGATIVE) Urine Nitrite (NEGATIVE) Urine Bilirubin (NEGATIVE) Urine Urobilinogen (0.2-1.0) mg/dL Ur Leukocyte Esterase (NEGATIVE) Salicylates < 2.8 L (2.8-20(Therapeutic)) mg/dL Urine Opiates Screen (NEGATIVE) Ur Oxycodone Screen (NEGATIVE) Urine Methadone Screen (NEGATIVE) Acetaminophen (10-30 (Therapeutic)) ug/mL Ur Barbiturates Screen (NEGATIVE) U Tricyclic Antidepress (NEGATIVE) Ur Phencyclidine Scrn (NEGATIVE) Ur Amphetamine Screen (NEGATIVE) U Methamphetamines Scrn (NEGATIVE) Urine MDMA Screen (NEGATIVE) U Benzodiazepines Scrn (NEGATIVE) Urine Cocaine Screen (NEGATIVE) U Marijuana (THC) Screen (NEGATIVE) Ethyl Alcohol (0) mg/dL 12/18/20 12/18/20 Range/Units 19:37 19:37 WBC (5.0-10.0) 10^3/uL RBC (4.6-6.2) 10^6/uL Hgb (14.0-18.0) g/dL Hct (40.0-54.0) % MCV (80-100) fL MCH (27.0-34.0) pg MCHC (33.0-35.0) g/dL Plt Count (150-450) 10^3/uL Neut % (Auto) (42.2-75.2) % Lymph % (Auto) (20.5-50.1) % [place] % (Auto) (2-8) % Eos % (Auto) (1.0-3.0) % Baso % (Auto) (0.0-1.0) % PT (9.0-12.0) SEC INR (0.9-1.2) D-Dimer, Quantitative (0-400) ng/mL Sodium (136-145) mmol/L Potassium (3.5-5.1) mmol/L Chloride (98-107) mmol/L Carbon Dioxide (21-32) mmol/L Anion Gap (7-13) mEq/L BUN (7-18) mg/dL Creatinine (0.70-1.30) mg/dL Est Cr Clr Drug Dosing mL/min Estimated GFR (MDRD) BUN/Creatinine Ratio (No establ ref range) Glucose (70-99) mg/dL Lactic Acid (0.4-2.0) mmol/L Calcium (8.5-10.1) mg/dL Magnesium (1.8-2.4) mg/dL Total Bilirubin (0.2-1.0) mg/dL AST (15-37) U/L ALT (16-63) U/L Alkaline Phosphatase (46-116) U/L Ammonia (11-32) umol/L Troponin I High Sens (<=76) pg/mL Total Protein (6.4-8.2) g/dL Albumin (3.4-5.0) g/dL Globulin Albumin/Globulin Ratio Amylase (25-115) U/L Lipase (73-393) U/L Urine Color Yellow (YELLOW) Urine Appearance Clear (CLEAR) Urine pH 7.0 (5.0-9.0) Ur Specific [place] 1.025 (1.005-1.030) Urine Protein Negative (NEGATIVE) Urine Glucose (UA) Negative (NEGATIVE) Urine Ketones Negative (NEGATIVE) Urine Occult Blood Negative (NEGATIVE) Urine Nitrite Negative (NEGATIVE) Urine Bilirubin Negative (NEGATIVE) Urine Urobilinogen 0.2 (0.2-1.0) mg/dL Ur Leukocyte Esterase Negative (NEGATIVE) Salicylates (2.8-20(Therapeutic)) mg/dL Urine Opiates Screen Negative (NEGATIVE) Ur Oxycodone Screen Negative (NEGATIVE) Urine Methadone Screen Negative (NEGATIVE) Acetaminophen (10-30 (Therapeutic)) ug/mL Ur Barbiturates Screen Negative (NEGATIVE) U Tricyclic Antidepress Negative (NEGATIVE) Ur Phencyclidine Scrn Negative (NEGATIVE) Ur Amphetamine Screen Negative (NEGATIVE) U Methamphetamines Scrn Positive H (NEGATIVE) Urine MDMA Screen Negative (NEGATIVE) U Benzodiazepines Scrn Negative (NEGATIVE) Urine Cocaine Screen Negative (NEGATIVE) U Marijuana (THC) Screen Negative (NEGATIVE) Ethyl Alcohol (0) mg/dL Meds: Medications Discontinued Medications Generic Name Dose Route Start Last Admin Trade Name Claudine PRN Reason Stop Dose Admin Al Hydroxide/Mg Hydroxide 30 ml 12/18/20 19:29 12/18/20 19:37 Gi Cocktail Oral Solution 30 Ml PO 12/18/20 19:30 30 ml ONETIME ONE Administration Famotidine 20 mg 12/18/20 21:32 12/18/20 21:44 Famotidine 20 Mg/2 Ml Sdv IVPUSH 12/18/20 21:33 20 mg ONETIME ONE Administration Lactated Ringer's 1,000 mls @ 500 mls/hr 12/18/20 18:40 12/18/20 19:02 Ringers, Lactated IV 12/18/20 20:39 500 mls/hr .BOLUS ONE Administration Ondansetron HCl 4 mg 12/18/20 18:40 12/18/20 19:01 Ondansetron 4 Mg/2 Ml Sdv IVPUSH 12/18/20 18:41 4 mg ONETIME ONE Administration Pantoprazole Sodium 40 mg 12/18/20 18:46 12/18/20 19:02 Pantoprazole 40 Mg Vial IVPUSH 12/18/20 18:47 40 mg ONETIME ONE Administration Departure - Departure Time of Disposition: 21:33 Condition: Good - Discharge Information *PRESCRIPTION DRUG MONITORING PROGRAM REVIEWED*: No *COPY OF PRESCRIPTION DRUG MONITORING REPORT IN PATIENT DIPTI: No Sepsis Event Note (ED) - Focused Exam Vital Signs: Vital Signs Temp Pulse Resp BP Pulse Ox 12/18/20 19:06 97.8 F 88 20 152/87 H 97
[2020-12-18 19:10] VITALS: BP 152/87; PULSE 88
[2020-12-18 19:27] LABS: ANION GAP 12.9 mEq/L (7-13); CHLORIDE,CL 107 mmol/L (98-107); SODIUM,NA 143 mmol/L (136-145)
[2020-12-18 19:28] LABS: ACETAMINOPHEN 0 ug/mL (10-30 (Therapeutic))
[2020-12-18] MEDS ORDERED: GI Cocktail Oral Solution 30 ML PO ONE (19:29)
[2020-12-18 19:41] LABS: BARBITURATES,URINE NEGATIVE (NEGATIVE); BENZODIAZEPINE,URINE NEGATIVE (NEGATIVE); MDMA (ECSTASY), URINE NEGATIVE (NEGATIVE); METHADONE,URINE NEGATIVE (NEGATIVE); METHAMPHETAMINES,URINE POSITIVE (NEGATIVE); OPIATES,URINE NEGATIVE (NEGATIVE); OXYCODONE,URINE NEGATIVE (NEGATIVE); PHENCYCLIDINE,URINE NEGATIVE (NEGATIVE); TCA,URINE NEGATIVE (NEGATIVE)
[2020-12-18 19:42] LABS: AMPHETAMINES,URINE NEGATIVE (NEGATIVE)
[2020-12-18] MEDS ORDERED: Famotidine 20 MG/2 ML SDV IVPUSH ONE (21:32)
== END 2020-12-18 22:04 | disposition home or self-care (01) ==
LOC: DL.ED 18:30
DX: K29.20 Alcoholic gastritis without bleeding (principal); F15.10 Other stimulant abuse, uncomplicated; Z88.8 Allergy status to other drugs, medicaments and biological substances; Z88.0 Allergy status to penicillin
CPT/HCPCS: 36415; 80053; 80143; 80179; 80305; 80307; 81003; 82140; 82150; 83605; 83690; 83735; 84484; 85025; 85379; 85610; 87040; 93005; 96374; 96375; 99284; A9270; C9113; J2405; J3490; J7120

== ENCOUNTER 2021-04-25 13:39 | Inpatient (IN) | payer MEDICAID ==
[2021-04-25] MEDS ORDERED: LORazepam 2 MG/ML SDV IVPUSH ONE (14:08)
[2021-04-25] MEDS ORDERED: diphenhydrAMINE 50 MG/ML SDV IVPUSH ONE (14:08)
[2021-04-25] MEDS ORDERED: MVI, Adult with Vitamin K 10 ML, Thiamine 100 MG, Folic Acid 1 MG in Lactated Ringers 1... IV ONE ×4 (14:10)
[2021-04-25] MEDS: Sodium Chloride 0.9% 10 ML Syringe FLUSH PRN (14:20)
[2021-04-25 14:46] LABS: ANION GAP 15.8 mEq/L (7-13); CHLORIDE,CL 101 mmol/L (98-107); SODIUM,NA 139 mmol/L (136-145)
[2021-04-25] MEDS ORDERED: metroNIDAZOLE/Normal Saline 500 MG in Premix Bag 100 BAG IV ONE (15:04)
[2021-04-25 15:07] LABS: CORONAVIRUS COVID-19 NAA NEGATIVE (NEGATIVE); RESPIRATORY SYNCYTIAL VIR NAA NEGATIVE (NEGATIVE)
[2021-04-25] MEDS ORDERED: Ibuprofen 600 MG Tab PO PRN (15:39)
[2021-04-25] MEDS ORDERED: Albuterol/Ipratropium 3.0-0.5 MG/3 ML Neb Soln NEB PRN (15:39)
[2021-04-25] MEDS ORDERED: oxyCODONE 5 MG Tab PO PRN (15:39)
[2021-04-25] MEDS ORDERED: Polyethylene Glycol 3350 Powder 17 GM Packet PO PRN (15:39)
[2021-04-25] MEDS ORDERED: HYDROmorphone 0.5 MG/0.5 ML Syringe IVPUSH PRN (15:39)
[2021-04-25] MEDS ORDERED: Ondansetron 4 MG/2 ML SDV IVPUSH PRN (15:39)
[2021-04-25] MEDS ORDERED: cloNIDine 0.1 MG Tab PO PRN (15:49)
[2021-04-25] MEDS ORDERED: MVI, Adult with Vitamin K 10 ML, Folic Acid 1 MG, Thiamine 100 MG in Lactated Ringers 1... IV ONE ×4 (15:50)
[2021-04-25] MEDS ORDERED: Flumazenil 0.1 MG/ML 5 ML MDV IVPUSH PRN (15:52)
[2021-04-25] MEDS ORDERED: LORazepam 2 MG/ML SDV IVPUSH PRN (15:52)
[2021-04-25] MEDS ORDERED: Metoprolol Tartrate 5 MG/5 ML SDV IVPUSH PRN (15:52)
[2021-04-25 16:25] LABS: AMPHETAMINES,URINE NEGATIVE (NEGATIVE); BARBITURATES,URINE NEGATIVE (NEGATIVE); BENZODIAZEPINE,URINE POSITIVE (NEGATIVE); MDMA (ECSTASY), URINE NEGATIVE (NEGATIVE); METHADONE,URINE NEGATIVE (NEGATIVE); METHAMPHETAMINES,URINE POSITIVE (NEGATIVE); OPIATES,URINE NEGATIVE (NEGATIVE); OXYCODONE,URINE NEGATIVE (NEGATIVE); PHENCYCLIDINE,URINE NEGATIVE (NEGATIVE); TCA,URINE NEGATIVE (NEGATIVE)
[2021-04-25] MEDS: metroNIDAZOLE/Normal Saline 500 MG in Premix Bag 1 BAG IV SCH (17:04)
[2021-04-25] MEDS: Pantoprazole 40 MG Vial IVPUSH SCH (17:50)
[2021-04-25] MEDS: LORazepam 2 MG/ML SDV IVPUSH PRN ×2 (18:12→20:20)
[2021-04-25] MEDS: QUEtiapine 25 MG Tab PO SCH (20:21)
[2021-04-25] MEDS: Saccharomyces Boulardii (Probiotic) 250 MG Cap PO SCH (20:21)
[2021-04-26] MEDS: chlordiazePOXIDE 25 MG Cap PO SCH ×4 (00:16→20:13)
[2021-04-26] MEDS: metroNIDAZOLE/Normal Saline 500 MG in Premix Bag 1 BAG IV SCH ×3 (02:07→17:04)
[2021-04-26] MEDS: LORazepam 2 MG/ML SDV IVPUSH PRN ×4 (05:10→20:48)
[2021-04-26] MEDS: Pantoprazole 40 MG Vial IVPUSH SCH ×2 (05:22→16:59)
[2021-04-26 06:48] LABS: ANION GAP 16.3 mEq/L (7-13); CHLORIDE,CL 104 mmol/L (98-107); SODIUM,NA 142 mmol/L (136-145)
[2021-04-26] MEDS ORDERED: Potassium Chloride 10 MEQ Tab.ER PO ONE (07:32)
[2021-04-26] MEDS: Nicotine 21 MG/24 Hr Patch TRDERM SCH ×2 (08:17→08:21)
[2021-04-26] MEDS: QUEtiapine 25 MG Tab PO SCH ×2 (08:17→20:12)
[2021-04-26] MEDS: Saccharomyces Boulardii (Probiotic) 250 MG Cap PO SCH ×2 (08:17→20:13)
[2021-04-26] MEDS ORDERED: Folic Acid 1 MG Tab PO SCH (09:00)
[2021-04-26] MEDS ORDERED: Multivitamins with Iron/Calcium/Folic Acid/Minerals Tab PO SCH (09:00)
[2021-04-26 19:59] VITALS: BP 135/67
[2021-04-26] MEDS: Sodium Chloride 0.9% 10 ML Syringe FLUSH PRN (20:09)
[2021-04-26] MEDS ORDERED: Thiamine 100 MG Tab PO SCH (21:00)
[2021-04-26 22:11] VITALS: PULSE 90
== END 2021-04-26 23:15 | disposition left against medical advice (07) | DRG 603 ==
LOC: DL.ED 13:39 → DL.MS 15:26
PROVIDERS: ADMIT Internal Medicine; ATTEND Internal Medicine
DX: L03.113 Cellulitis of right upper limb (principal); F10.239 Alcohol dependence with withdrawal, unspecified; Z87.11 Personal history of peptic ulcer disease; F41.9 Anxiety disorder, unspecified; H54.7 Unspecified visual loss; H91.90 Unspecified hearing loss, unspecified ear; Z88.8 Allergy status to other drugs, medicaments and biological substances; Z88.0 Allergy status to penicillin; Z79.899 Other long term (current) drug therapy; Z86.16 Personal history of COVID-19; F17.210 Nicotine dependence, cigarettes, uncomplicated; R73.9 Hyperglycemia, unspecified; R74.01 Elevation of levels of liver transaminase levels; F19.10 Other psychoactive substance abuse, uncomplicated; R56.9 Unspecified convulsions; Z20.822 Contact with and (suspected) exposure to COVID-19
CPT/HCPCS: 0241U; 36415; 80053; 80305-QW; 80307; 81003; 83605; 83735; 85025; 85610; 85651; 85730; 86140; 87040; 87070; 87077; 87186; 87205; 96365; 96368; 96375; 99285-25; A9270-GY; C9113; J1200; J2060; J2405; J3370; J3411; J3490; J7050; J7120

== ENCOUNTER 2021-05-25 07:32 | Emergency (ER) | payer MEDICAID ==
[2021-05-25] MEDS ORDERED: Sodium Chloride 0.9% 10 ML Syringe FLUSH PRN (07:44)
[2021-05-25] MEDS ORDERED: MVI, Adult with Vitamin K 10 ML, Thiamine 100 MG, Folic Acid 1 MG in Lactated Ringers 1... IV ONE ×4 (07:45)
[2021-05-25] MEDS ORDERED: Pantoprazole 40 MG Vial IVPUSH ONE (07:45)
[2021-05-25] MEDS ORDERED: Ondansetron 4 MG/2 ML SDV IV ONE (07:45)
[2021-05-25] MEDS ORDERED: Octreotide 100 MCG/ML SDV IVPUSH ONE (07:47)
[2021-05-25] MEDS ORDERED: levETIRAcetam in NaCl (iso-os) 1,500 MG in Premix Bag 1 BAG IV ONE ×2 (07:48)
[2021-05-25 07:51] VITALS: BP 137/76; PULSE 123
[2021-05-25] MEDS ORDERED: Pantoprazole 40 MG in Sodium Chloride 0.9% 100 ML IV SCH (08:00)
[2021-05-25 08:28] LABS: ANION GAP 21.1 mEq/L (7-13); CHLORIDE,CL 104 mmol/L (98-107); SODIUM,NA 143 mmol/L (136-145)
[2021-05-25] MEDS ORDERED: Octreotide 100 MCG in Sodium Chloride 0.9% 99 ML IV SCH (08:30)
[2021-05-25] MEDS ORDERED: Sodium Chloride 0.9% with KCl 1,000 ML IV SCH (09:00)
[2021-05-25] MEDS ORDERED: Magnesium Sulfate/Water 2 GM in Premix Bag 2 BAG IV ONE (09:00)
[2021-05-25] MEDS ORDERED: Magnesium Sulfate/Water 50 ML ONE (09:11)
[2021-05-25] MEDS ORDERED: LORazepam 2 MG/ML SDV IVPUSH ONE (09:14)
== END 2021-05-25 10:06 ==
LOC: DL.ED 07:32
DX: G40.909 Epilepsy, unspecified, not intractable, without status epilepticus (principal); K29.21 Alcoholic gastritis with bleeding; F10.230 Alcohol dependence with withdrawal, uncomplicated; E87.6 Hypokalemia; E83.42 Hypomagnesemia; Z88.0 Allergy status to penicillin; Z88.8 Allergy status to other drugs, medicaments and biological substances; Z72.0 Tobacco use; Z91.09 Other allergy status, other than to drugs and biological substances; Y90.3 Blood alcohol level of 60-79 mg/100 ml
CPT/HCPCS: 36415; 80053; 80307; 82140; 82150; 82272; 83690; 83735; 84484; 85025; 85610; 93005; 93010; 96365; 96367; 96368; 96375; 96376; 99285; 99285-25; C9113; J1953; J2060; J2354-JA; J2405; J3411; J3475; J3480; J3490; J7120

== ENCOUNTER 2021-12-11 01:08 | Emergency (ER) | payer MEDICAID ==
[2021-12-11] MEDS ORDERED: VITAMIN K IV ONE ×4 (01:40)
[2021-12-11] MEDS ORDERED: FOLIC ACID IV ONE ×4 (01:40)
[2021-12-11] MEDS ORDERED: MVI IV ONE ×4 (01:40)
[2021-12-11] MEDS ORDERED: THIAMINE IV ONE ×4 (01:40)
[2021-12-11] MEDS ORDERED: Pantoprazole 40 MG Vial IV ONE (01:40)
[2021-12-11] MEDS ORDERED: [UNRECOGNIZED DRUG - OTHER] IV ONE ×4 (01:40)
[2021-12-11] MEDS ORDERED: Pantoprazole 40 MG in Sodium Chloride 0.9% 100 ML IV ONE (01:45)
[2021-12-11] MEDS ORDERED: GI Cocktail Oral Solution 30 ML PO ONE (02:05)
[2022-01-03 14:09] LABS: ANION GAP 14.9 mEq/L (7-13); CHLORIDE,CL 97 mmol/L (98-107); ESTIMATED GFR 68 mL/min (>=60); SODIUM,NA 137 mmol/L (136-145)
[2022-01-03 14:12] LABS: AMPHETAMINES,URINE NEGATIVE (NEGATIVE); BARBITURATES,URINE NEGATIVE (NEGATIVE); BENZODIAZEPINE,URINE NEGATIVE (NEGATIVE); MDMA (ECSTASY), URINE NEGATIVE (NEGATIVE); METHADONE,URINE NEGATIVE (NEGATIVE); METHAMPHETAMINES,URINE NEGATIVE (NEGATIVE); OPIATES,URINE NEGATIVE (NEGATIVE); OXYCODONE,URINE NEGATIVE (NEGATIVE); PHENCYCLIDINE,URINE NEGATIVE (NEGATIVE); TCA,URINE NEGATIVE (NEGATIVE)
== END 2021-12-11 05:30 ==
LOC: DL.ED 01:08
DX: K92.2 Gastrointestinal hemorrhage, unspecified (principal)
CPT/HCPCS: 96365; 96366; 96367; 96375; 96376; 99285-25

== ENCOUNTER 2022-06-17 14:39 | Emergency (ER) | payer MEDICAID ==
[2022-06-17 14:51] VITALS: BP 144/95; PULSE 84
[2022-06-17] MEDS ORDERED: Ketorolac 30 MG/ML SDV IM ONE (15:54)
== END 2022-06-17 16:03 | disposition home or self-care (01) ==
LOC: DL.ED 14:39
DX: S83.91XA Sprain of unspecified site of right knee, initial encounter (principal); Z88.0 Allergy status to penicillin; Z88.8 Allergy status to other drugs, medicaments and biological substances; Z72.0 Tobacco use; W22.09XA Striking against other stationary object, initial encounter
CPT/HCPCS: 73564; 73630; 96372; 99282; 99283; J1885

== ENCOUNTER 2022-07-28 22:21 | Emergency (ER) | payer MEDICAID ==
[2022-07-28] MEDS ORDERED: HYDROmorphone 1 MG/ML Syringe IVPUSH ONE (22:34)
[2022-07-28] MEDS ORDERED: Ondansetron 4 MG/2 ML SDV IVPUSH ONE (22:34)
[2022-07-28] MEDS ORDERED: Iopamidol 612 MG/ML 100 ML Bottle IVPUSH ONE (22:34)
[2022-07-29] MEDS ORDERED: Take Home: Acetaminophen/HYDROcodone 325-5 MG, 5 Tab Pack PO ONE (01:02)
[2022-07-29 01:44] VITALS: BP 123/76; PULSE 78
== END 2022-07-29 01:37 | disposition home or self-care (01) ==
LOC: DL.ED 22:21
DX: S42.021A Displaced fracture of shaft of right clavicle, initial encounter for closed fracture (principal); S40.211A Abrasion of right shoulder, initial encounter; M25.461 Effusion, right knee; Z88.0 Allergy status to penicillin; Z86.16 Personal history of COVID-19; Z88.8 Allergy status to other drugs, medicaments and biological substances; V18.0XXA Pedal cycle driver injured in noncollision transport accident in nontraffic accident, initial encounter
CPT/HCPCS: 71260; 73562-RT; 74177; 96374; 96375; 99283; 99285-25; A9270-GY; J1170; J2405; Q9967

== ENCOUNTER 2022-08-20 15:24 | Inpatient (IN) | payer MEDICAID ==
[2022-08-20] MEDS ORDERED: Pantoprazole 40 MG Vial IVPUSH ONE (16:20)
[2022-08-20] MEDS ORDERED: Sodium Chloride 0.9% 1,000 ML IV ONE (16:21)
[2022-08-20] MEDS ORDERED: Ondansetron 4 MG/2 ML SDV IVPUSH ONE (16:25)
[2022-08-20 16:28] LABS: BASOPHILS PERCENT AUTO 0.2 % (0.0-1.0); EOSINOPHILS PERCENT AUTO 0.3 % (1.0-3.0); HEMATOCRIT 37.7 % (40.0-54.0); HEMOGLOBIN 12.8 g/dL (14.0-18.0); LYMPHOCYTES PERCENT AUTO 15.1 % (20.5-50.1); MEAN CORPUSCULAR HEMOGLOBIN 31.2 pg (27.0-34.0); MONOCYTES PERCENT AUTO 6.2 % (2-8); NEUTROPHILS PERCENT AUTO 78.2 % (42.2-75.2); PLATELET COUNT,PLT 398 10^3/uL (150-450); WHITE BLOOD CELL COUNT,WBC 11.2 10^3/uL (5.0-10.0)
[2022-08-20 16:37] LABS: PROTHROMBIN TIME 10.4 SEC (9.0-12.0); PTT,PARTIAL THROMBOPLSTIN TIME 26.1 SEC (22.0-34.0)
[2022-08-20 16:39] LABS: A/G RATIO 0.94; ALANINE AMINOTRANSFERASE,ALT 23 U/L (16-63); ALBUMIN 3.1 g/dL (3.4-5.0); ALKALINE PHOSPHATASE 152 U/L (46-116); AMYLASE 26 U/L (25-115); ANION GAP 15.3 mEq/L (7-13); ASPARTATE AMNIOTRANSFERASE,AST 12 U/L (15-37); BILIRUBIN TOTAL 0.4 mg/dL (0.2-1.0); BLOOD UREA NITROGEN,BUN 47 mg/dL (7-18); C-REACTIVE PROTEIN 0.4 mg/dL (0.0-0.9); CALCIUM 8.6 mg/dL (8.5-10.1); CARBON DIOXIDE,CO2 22 mmol/L (21-32); CHLORIDE,CL 104 mmol/L (98-107); CREATININE 0.84 mg/dL (0.70-1.30); EST CRCL DRUG DOSING (CG) 105.21 mL/min; ESTIMATED GFR 106 mL/min (>=60); ETHANOL BLOOD MEDICAL < 3 mg/dL (0); GLUCOSE RANDOM 112 mg/dL (70-99); LIPASE 59 U/L (73-393); MAGNESIUM 1.8 mg/dL (1.8-2.4); POTASSIUM,K 4.3 mmol/L (3.5-5.1); PROTEIN TOTAL,TP 6.4 g/dL (6.4-8.2); SODIUM,NA 137 mmol/L (136-145)
[2022-08-20 16:43] LABS: LACTIC ACID 2.6 mmol/L (0.4-2.0)
[2022-08-20] MEDS: Octreotide 100 MCG in Sodium Chloride 0.9% 99 ML IV SCH ×2 (16:46→19:47)
[2022-08-20] MEDS ORDERED: Iopamidol 612 MG/ML 100 ML Bottle IVPUSH ONE (16:58)
[2022-08-20 18:15] LABS: APPEARANCE,URINE CLEAR (CLEAR); BILIRUBIN,URINE NEGATIVE (NEGATIVE); COLOR,URINE YELLOW (YELLOW); GLUCOSE,URINE NEGATIVE (NEGATIVE); KETONES,URINE 80 (NEGATIVE); LEUKOCYTE ESTERASE,URINE NEGATIVE (NEGATIVE); NITRITE,URINE NEGATIVE (NEGATIVE); OCCULT BLOOD,URINE TRACE-INTACT (NEGATIVE); PROTEIN,URINE NEGATIVE (NEGATIVE); UROBILINOGEN,URINE 0.2 mg/dL (0.2-1.0)
[2022-08-20 18:21] LABS: AMPHETAMINES,URINE POSITIVE (NEGATIVE); BARBITURATES,URINE NEGATIVE (NEGATIVE); BENZODIAZEPINE,URINE POSITIVE (NEGATIVE); MDMA (ECSTASY), URINE POSITIVE (NEGATIVE); METHADONE,URINE NEGATIVE (NEGATIVE); METHAMPHETAMINES,URINE POSITIVE (NEGATIVE); OPIATES,URINE NEGATIVE (NEGATIVE); OXYCODONE,URINE NEGATIVE (NEGATIVE); PHENCYCLIDINE,URINE NEGATIVE (NEGATIVE); TCA,URINE NEGATIVE (NEGATIVE)
[2022-08-20 18:24] LABS: BACTERIA,URINE RARE /HPF (0-FEW/HPF); EPITHELIAL CELLS,URINE RARE /HPF (NOT SEEN); MUCUS,URINE FEW /LPF (NOT SEEN); RBC,URINE 0-5 /HPF (0-5); WBC,URINE 0-5 /HPF (0-5/HPF)
[2022-08-20] MEDS ORDERED: Ciprofloxacin in D5W 400 MG in Premix Bag 1 BAG IV ONE ×2 (18:28)
[2022-08-20] MEDS ORDERED: Albuterol/Ipratropium 3.0-0.5 MG/3 ML Neb Soln NEB PRN (18:56)
[2022-08-20] MEDS ORDERED: Promethazine 25 MG/ML SDV IM PRN (18:56)
[2022-08-20] MEDS ORDERED: Sennosides/Docusate Sodium 50-8.6 MG Tab PO PRN (18:56)
[2022-08-20] MEDS ORDERED: oxyCODONE 5 MG Tab PO PRN (18:56)
[2022-08-20] MEDS ORDERED: Ondansetron 4 MG/2 ML SDV IVPUSH PRN (18:56)
[2022-08-20] MEDS ORDERED: hydrALAZINE 20 MG/ML SDV IVPUSH PRN (18:56)
[2022-08-20] MEDS ORDERED: HYDROmorphone 0.5 MG/0.5 ML Syringe IVPUSH PRN (18:56)
[2022-08-20] MEDS ORDERED: Magnesium Hydroxide 400 MG/5 ML Susp 30 ML Cup PO PRN (18:56)
[2022-08-20] MEDS ORDERED: Temazepam 15 MG Cap PO PRN (18:56)
[2022-08-20] MEDS ORDERED: Metoprolol Tartrate 5 MG/5 ML SDV IVPUSH PRN (18:56)
[2022-08-20] MEDS ORDERED: Acetaminophen 325 MG Tab PO PRN (18:56)
[2022-08-20] MEDS ORDERED: Polyethylene Glycol 3350 Powder 17 GM Packet PO PRN (18:56)
[2022-08-20] MEDS ORDERED: MVI, Adult with Vitamin K 10 ML, Folic Acid 1 MG, Thiamine 100 MG in Lactated Ringers 1... IV ONE ×4 (18:59)
[2022-08-20] MEDS ORDERED: LORazepam 0.5 MG Tab PO PRN (18:59)
[2022-08-20] MEDS ORDERED: Haloperidol Lactate 5 MG/ML SDV IM PRN (18:59)
[2022-08-20] MEDS ORDERED: cloNIDine 0.1 MG Tab PO PRN (18:59)
[2022-08-20] MEDS ORDERED: Thiamine 200 MG/2 ML MDV IVPUSH ONE (18:59)
[2022-08-20] MEDS: Pantoprazole 40 MG Vial IVPUSH SCH (20:28)
[2022-08-20] MEDS: LORazepam 2 MG/ML SDV IV PRN ×2 (20:28→23:38)
[2022-08-21] MEDS: LORazepam 2 MG/ML SDV IV PRN (01:52)
[2022-08-21 06:45] LABS: BASOPHILS PERCENT AUTO 0.2 % (0.0-1.0); EOSINOPHILS PERCENT AUTO 0.7 % (1.0-3.0); HEMATOCRIT 30.2 % (40.0-54.0); HEMOGLOBIN 10.5 g/dL (14.0-18.0); LYMPHOCYTES PERCENT AUTO 11.3 % (20.5-50.1); MEAN CORPUSCULAR HEMOGLOBIN 31.7 pg (27.0-34.0); MEAN CORPUSCULAR HGB CONC 34.8 g/dL (33.0-35.0); MEAN CORPUSCULAR VOLUME 91.2 fL (80-100); NEUTROPHILS PERCENT AUTO 81.8 % (42.2-75.2); PLATELET COUNT,PLT 295 10^3/uL (150-450); RED BLOOD CELL COUNT 3.31 10^6/uL (4.6-6.2); WHITE BLOOD CELL COUNT,WBC 10.6 10^3/uL (5.0-10.0)
[2022-08-21 07:04] LABS: ALBUMIN 2.6 g/dL (3.4-5.0); ANION GAP 11.6 mEq/L (7-13); BILIRUBIN TOTAL 0.4 mg/dL (0.2-1.0); BUN/CREATININE RATIO 34.4 (No establ ref range); CALCIUM 7.9 mg/dL (8.5-10.1); CREATININE 0.64 mg/dL (0.70-1.30); EST CRCL DRUG DOSING (CG) 138.09 mL/min; MAGNESIUM 1.7 mg/dL (1.8-2.4); POTASSIUM,K 3.6 mmol/L (3.5-5.1); PROTEIN TOTAL,TP 5.2 g/dL (6.4-8.2)
[2022-08-21] MEDS ORDERED: Saccharomyces Boulardii (Probiotic) 250 MG Cap PO SCH (09:00)
[2022-08-21] MEDS ORDERED: Ciprofloxacin in D5W 400 MG in Premix Bag 1 BAG IV SCH ×2 (09:00)
[2022-08-21] MEDS ORDERED: Nicotine 21 MG/24 Hr Patch TRDERM SCH (09:00)
[2022-08-21] MEDS ORDERED: carBAMazepine 200 MG Tab PO SCH (09:00)
[2022-08-21] MEDS: Pantoprazole 40 MG Vial IVPUSH SCH (09:04)
[2022-08-21] MEDS ORDERED: Magnesium Sulfate/Water 2 GM in Premix Bag 1 BAG IV ONE (10:00)
[2022-08-21 16:50] VITALS: BP 101/57; PULSE 80
[2022-08-21] MEDS ORDERED: Folic Acid 1 MG Tab PO SCH (21:00)
[2022-08-21] MEDS ORDERED: Multivitamin Tab PO SCH (21:00)
[2022-08-21] MEDS ORDERED: Thiamine 100 MG Tab PO SCH (21:00)
== END 2022-08-21 18:15 | disposition left against medical advice (07) | DRG 689 ==
LOC: DL.ED 15:24 → DL.MS 18:33
PROVIDERS: ADMIT Internal Medicine; ATTEND Internal Medicine
DX: N12 Tubulo-interstitial nephritis, not specified as acute or chronic (principal); G92.8 Other toxic encephalopathy; E87.20 Acidosis, unspecified; K62.5 Hemorrhage of anus and rectum; F15.129 Other stimulant abuse with intoxication, unspecified; D64.9 Anemia, unspecified; F41.9 Anxiety disorder, unspecified; R73.9 Hyperglycemia, unspecified; E83.42 Hypomagnesemia; R19.5 Other fecal abnormalities; K21.9 Gastro-esophageal reflux disease without esophagitis; H54.7 Unspecified visual loss; F10.20 Alcohol dependence, uncomplicated; Z87.11 Personal history of peptic ulcer disease; Z98.890 Other specified postprocedural states; Z86.16 Personal history of COVID-19; Z88.0 Allergy status to penicillin; Z88.8 Allergy status to other drugs, medicaments and biological substances; Z56.0 Unemployment, unspecified
CPT/HCPCS: 36415; 74177; 80053; 80305-QW; 80307; 81001; 82150; 82272; 83605; 83690; 83735; 85025; 85610; 85730; 86140; 86850; 86900; 86901; 87040; 96365; 96366; 96375; 99223; 99238; 99285; 99285-25; A9270-GY; C9113; J0744; J2060; J2354-JA; J2405; J3411; J3475; J3490; J7030; J7120; Q9967

== ENCOUNTER 2024-07-05 13:52 | Inpatient (IN) | payer MEDICAID, OTHER ==
[2024-07-05] MEDS ORDERED: Pantoprazole 40 MG in Sodium Chloride 0.9% 100 ML IV ONE (14:07)
[2024-07-05 14:16] LABS: BASOPHILS PERCENT AUTO 0.7 % (0.0-1.0); EOSINOPHILS PERCENT AUTO 1.6 % (1.0-3.0); HEMATOCRIT 44.6 % (40.0-54.0); HEMOGLOBIN 15.7 g/dL (14.0-18.0); MEAN CORPUSCULAR HEMOGLOBIN 31.6 pg (27.0-34.0); MEAN CORPUSCULAR HGB CONC 35.2 g/dL (33.0-35.0); MEAN CORPUSCULAR VOLUME 89.7 fL (80-100); MONOCYTES PERCENT AUTO 7.4 % (2-8); NEUTROPHILS PERCENT AUTO 58.3 % (42.2-75.2); PLATELET COUNT,PLT 255 10^3/uL (150-450); RED BLOOD CELL COUNT 4.97 10^6/uL (4.6-6.2); WHITE BLOOD CELL COUNT,WBC 5.8 10^3/uL (5.0-10.0)
[2024-07-05] MEDS: Sodium Chloride 0.9% 1,000 ML IV ONE (14:17)
[2024-07-05] MEDS: Pantoprazole 40 MG Vial IVPUSH ONE (14:17)
[2024-07-05 14:36] LABS: ALBUMIN 3.2 g/dL (3.4-5.0); ANION GAP 14.1 mEq/L (7-13); BILIRUBIN TOTAL 0.3 mg/dL (0.2-1.0); BUN/CREATININE RATIO 17.1 (No establ ref range); CREATININE 0.82 mg/dL (0.70-1.30); EST CRCL DRUG DOSING (CG) 101.95 mL/min; MAGNESIUM 1.6 mg/dL (1.8-2.4); POTASSIUM,K 3.1 mmol/L (3.5-5.1); PROTEIN TOTAL,TP 6.8 g/dL (6.4-8.2)
[2024-07-05 14:38] LABS: A/G RATIO 0.89
[2024-07-05] MEDS: LORazepam 2 MG/ML SDV IVPUSH ONE (14:52)
[2024-07-05] MEDS: MVI, Adult with Vitamin K 10 ML, Folic Acid 1 MG, Thiamine 100 MG in Lactated Ringers 1... IV ONE (14:58)
[2024-07-05] MEDS: Folic Acid 50 MG/10 ML MDV ONE (14:59)
[2024-07-05] MEDS: Thiamine 200 MG/2 ML MDV ONE (14:59)
[2024-07-05] MEDS: MVI, Adult with Vitamin K 10 ML SDV ONE (15:00)
[2024-07-05 15:40] LABS: APPEARANCE,URINE CLEAR (CLEAR); BILIRUBIN,URINE NEGATIVE (NEGATIVE); COLOR,URINE YELLOW (YELLOW); GLUCOSE,URINE NEGATIVE (NEGATIVE); KETONES,URINE 15 (NEGATIVE); LEUKOCYTE ESTERASE,URINE NEGATIVE (NEGATIVE); NITRITE,URINE NEGATIVE (NEGATIVE); OCCULT BLOOD,URINE MODERATE (NEGATIVE); PROTEIN,URINE TRACE (NEGATIVE)
[2024-07-05 15:42] LABS: AMPHETAMINES,URINE POSITIVE (NEGATIVE); BARBITURATES,URINE NEGATIVE (NEGATIVE); BENZODIAZEPINE,URINE POSITIVE (NEGATIVE); MDMA (ECSTASY), URINE NEGATIVE (NEGATIVE); METHADONE,URINE NEGATIVE (NEGATIVE); METHAMPHETAMINES,URINE POSITIVE (NEGATIVE); OPIATES,URINE NEGATIVE (NEGATIVE); OXYCODONE,URINE NEGATIVE (NEGATIVE); PHENCYCLIDINE,URINE NEGATIVE (NEGATIVE); TCA,URINE NEGATIVE (NEGATIVE)
[2024-07-05 15:48] LABS: BACTERIA,URINE RARE /HPF (0-FEW/HPF); EPITHELIAL CELLS,URINE FEW /HPF (NOT SEEN); MUCUS,URINE RARE /LPF (NOT SEEN); RBC,URINE 40-50 /HPF (0-5); WBC,URINE 0-5 /HPF (0-5/HPF)
[2024-07-05] MEDS: Magnesium Sulfate 2 GM/50 mL 2 GM in Premix Bag 1 BAG IV ONE ×2 (16:20→18:00)
[2024-07-05] MEDS ORDERED: Ondansetron 4 MG Tab.DIS PO PRN (16:24)
[2024-07-05] MEDS ORDERED: Acetaminophen 325 MG Tab PO PRN (16:24)
[2024-07-05] MEDS ORDERED: Lactated Ringers 1,000 ML IV SCH (16:30)
[2024-07-05] MEDS ORDERED: D5 1/2 NS w/ 40 mEq/L KCl 1,000 ML IV SCH (16:45)
[2024-07-05] MEDS ORDERED: Sodium Chloride 0.9% 10 ML Syringe FLUSH PRN (16:46)
[2024-07-05 17:15] LABS: PERCENT FE SATURATION 41.5 % (20.0-50.0)
[2024-07-05 17:23] LABS: HEMOGLOBIN A1C 5.9 % (<5.7)
[2024-07-05 17:25] LABS: FOLIC ACID 19.5 ng/mL (8.6-58.9); T4 FREE 0.9 ng/dL (0.76-1.46); TSH ULTRASENSITIVE 1.57 uIU/mL (0.36-3.74)
[2024-07-05] MEDS: Calcium Gluconate 1 GM in Sodium Chloride 0.9% 100 ML IV ONE (17:37)
[2024-07-05] MEDS: levETIRAcetam in NaCl (iso-os) 1,000 MG in Premix Bag 1 BAG IV ONE (17:45)
[2024-07-05] MEDS: Metoprolol Tartrate 5 MG/5 ML SDV IVPUSH SCH (17:46)
[2024-07-05] MEDS: Potassium Chloride 20 MEQ in Premix Bag 1 BAG IV ONE (19:34)
[2024-07-05] MEDS: chlordiazePOXIDE 25 MG Cap PO SCH (20:44)
[2024-07-05] MEDS: Sodium Chloride 0.9% 10 ML Syringe FLUSH SCH (22:23)
[2024-07-05] MEDS: Dextrose 5%-0.45% NaCl 1,000 ML IV SCH (22:27)
[2024-07-06] MEDS: Magnesium Sulf/Wat 4 GM/50 mL 4 GM in Premix Bag 1 BAG IV ONE (03:07)
[2024-07-06 06:42] LABS: BASOPHILS PERCENT AUTO 0.5 % (0.0-1.0); EOSINOPHILS PERCENT AUTO 2.5 % (1.0-3.0); HEMATOCRIT 42.3 % (40.0-54.0); HEMOGLOBIN 14.9 g/dL (14.0-18.0); LYMPHOCYTES PERCENT AUTO 25.9 % (20.5-50.1); MEAN CORPUSCULAR HEMOGLOBIN 31.8 pg (27.0-34.0); MEAN CORPUSCULAR HGB CONC 35.2 g/dL (33.0-35.0); MEAN CORPUSCULAR VOLUME 90.2 fL (80-100); MONOCYTES PERCENT AUTO 6.5 % (2-8); NEUTROPHILS PERCENT AUTO 64.6 % (42.2-75.2); PLATELET COUNT,PLT 229 10^3/uL (150-450); RED BLOOD CELL COUNT 4.69 10^6/uL (4.6-6.2); WHITE BLOOD CELL COUNT,WBC 6.5 10^3/uL (5.0-10.0)
[2024-07-06 06:59] LABS: A/G RATIO 0.84; ALBUMIN 2.6 g/dL (3.4-5.0); ANION GAP 12.1 mEq/L (7-13); BILIRUBIN DIRECT 0.2 mg/dL (0.0-0.2); BILIRUBIN INDIRECT 0.4; BILIRUBIN TOTAL 0.6 mg/dL (0.2-1.0); CREATININE 0.7 mg/dL (0.70-1.30); EST CRCL DRUG DOSING (CG) 135.49 mL/min; MAGNESIUM 2.1 mg/dL (1.8-2.4); PHOSPHORUS 3.6 mg/dL (2.6-4.7); POTASSIUM,K 3.1 mmol/L (3.5-5.1); PROTEIN TOTAL,TP 5.7 g/dL (6.4-8.2)
[2024-07-06] MEDS ORDERED: Pantoprazole 40 MG in Sodium Chloride 0.9% 100 ML IV SCH (09:00)
[2024-07-06] MEDS: carBAMazepine 200 MG Tab PO SCH (09:49)
[2024-07-06] MEDS: chlordiazePOXIDE 25 MG Cap PO SCH (09:49)
[2024-07-06] MEDS: Thiamine 200 MG/2 ML MDV IV SCH (09:53)
[2024-07-06] MEDS: Folic Acid 1 MG in Sodium Chloride 0.9% 50 ML IV SCH (10:16)
[2024-07-06] MEDS: LORazepam 2 MG/ML SDV IVPUSH PRN (10:18)
[2024-07-06] MEDS: Pantoprazole 40 MG Vial IV SCH (10:21)
[2024-07-06] MEDS: Pantoprazole 40 MG Vial ONE (10:21)
[2024-07-06] MEDS: Potassium Chloride 20 MEQ in Premix Bag 1 BAG IV ONE (11:40)
[2024-07-06] MEDS: Thiamine 100 MG in Sodium Chloride 0.9% 50 ML IV SCH (11:40)
[2024-07-07 05:25] LABS: BASOPHILS PERCENT AUTO 0.3 % (0.0-1.0); EOSINOPHILS PERCENT AUTO 1.9 % (1.0-3.0); HEMATOCRIT 41.1 % (40.0-54.0); HEMOGLOBIN 14.4 g/dL (14.0-18.0); LYMPHOCYTES PERCENT AUTO 18.3 % (20.5-50.1); MEAN CORPUSCULAR HEMOGLOBIN 31.4 pg (27.0-34.0); MEAN CORPUSCULAR VOLUME 89.7 fL (80-100); MONOCYTES PERCENT AUTO 5.1 % (2-8); NEUTROPHILS PERCENT AUTO 74.4 % (42.2-75.2); PLATELET COUNT,PLT 203 10^3/uL (150-450); RED BLOOD CELL COUNT 4.58 10^6/uL (4.6-6.2); WHITE BLOOD CELL COUNT,WBC 7.5 10^3/uL (5.0-10.0)
[2024-07-07 05:38] LABS: ANION GAP 12.9 mEq/L (7-13); CALCIUM 8.2 mg/dL (8.5-10.1); CREATININE 0.68 mg/dL (0.70-1.30); EST CRCL DRUG DOSING (CG) 139.48 mL/min; MAGNESIUM 1.9 mg/dL (1.8-2.4); POTASSIUM,K 3.9 mmol/L (3.5-5.1)
[2024-07-07] MEDS: GI Cocktail Oral Solution 30 ML PO ONE (11:38)
[2024-07-07] MEDS: OLANZapine 5 MG Tab PO SCH (11:38)
[2024-07-08 07:53] VITALS: BP 134/92; PULSE 67
[2024-07-08] MEDS ORDERED: Magnesium Oxide 400 MG Tab PO SCH (18:00)
[2024-07-08] MEDS ORDERED: Potassium Chloride 10 MEQ Tab.ER PO SCH (18:00)
[2024-07-08] MEDS ORDERED: chlordiazePOXIDE 25 MG Cap PO SCH (21:00)
== END 2024-07-08 11:30 | disposition left against medical advice (07) | DRG 894 ==
LOC: DL.ED 13:52 → DL.MS 15:58
PROVIDERS: ADMIT Internal Medicine; ATTEND Internal Medicine
PROC: HZ2ZZZZ Detoxification Services for Substance Abuse Treatment (ICD-10-PCS; principal; 2024-07-05)
DX: F10.231 Alcohol dependence with withdrawal delirium (principal); G92.8 Other toxic encephalopathy; R56.9 Unspecified convulsions; E86.0 Dehydration; F19.10 Other psychoactive substance abuse, uncomplicated; E83.42 Hypomagnesemia; E83.51 Hypocalcemia; E87.6 Hypokalemia; I16.0 Hypertensive urgency; Z88.0 Allergy status to penicillin; Z88.8 Allergy status to other drugs, medicaments and biological substances; Z98.890 Other specified postprocedural states; Z72.0 Tobacco use; Z86.16 Personal history of COVID-19; Z79.899 Other long term (current) drug therapy
CPT/HCPCS: 36415; 51702; 70450; 80048; 80053; 80076; 80305-QW; 80307; 81001; 82140; 82272; 82607; 82746; 82977; 83036; 83540; 83550; 83690; 83735; 84100; 84439; 84443; 85025; 86592; 86850; 86900; 86901; 96361; 96365; 96368; 96375; 99238; 99285; 99285-25; 99291; A9270-GY; J0612; J1953; J2060; J2470; J3411; J3475; J3480; J3490; J7030; J7120